=== PATIENT | female | born 1930 | race Caucasian/White ===

== ENCOUNTER 2018-10-25 14:55 | Emergency (ER) | payer OTHER ==
[2018-10-25] MEDS ORDERED: NA CHLORIDE 0.9% 1,000 ML ONE (15:52)
[2018-10-25 16:11] LABS: Absolute Lymphocytes (CBC) 1.9 K/uL (0.7-4.9); Basophils % 0.5 % (0-1.3); Hematocrit 35.4 % (36.0-45.0); Lymphocytes % 27.1 % (15.3-44.8); MPV 8.7 fL (7.6-11.3); RBC Red Blood Cell Count 3.83 M/uL (3.86-4.86)
[2018-10-25 16:19] LABS: Urine Blood NEGATIVE (NEG); Urine Glucose NEGATIVE (NEG); Urine Protein NEGATIVE (NEG); Urine pH 6.5 (5.0-7.0)
[2018-10-25 16:27] LABS: Urine Bacteria NONE SEEN /HPF (<20); Urine Culture Reflex Order NOT NEEDED; Urine RBC <5 /HPF (NONE SEEN)
[2018-10-25 16:27] LABS: Albumin 3.5 g/dL (3.4-5.0); Bilirubin Direct 0.1 mg/dL (0-0.2); Bilirubin Total 0.4 mg/dL (0.2-1.0); Magnesium 2.1 mg/dL (1.8-2.4); Potassium 3.8 mmol/L (3.5-5.1); Protein, Total 6.1 g/dL (6.4-8.2)
--- NOTE | 2018-10-25 17:27 | RAD REPORT ---
EXAM DESCRIPTION: CT - Abdomen Pelvis Wo Contrast - 10/25/2018 4:59 pm CLINICAL HISTORY: Abdominal pain .diarrhea COMPARISON: 2017 TECHNIQUE: Computed axial tomography of the abdomen and pelvis was obtained. IV and oral contrast we re not requested. All CT scans are performed using dose optimization technique as appropriate and may include automated exposure control or mA/KV adjustment according to patient size. FINDINGS: The evaluation of solid organs, vessels and bowel is limited secondary to the lack of con trast administration. The liver, spleen, pancreas, adrenals and kidneys appear grossly normal. Hysterectomy. There is no evidence of diverticulitis. Sclerosis involving the vertebral endplates of L1 and L2 vertebral bodies probably degenerative in na ture. Mild old compression fracture involves T10 vertebral body Atherosclerosis. Cholecystectomy IMPRESSION: No acute abnormality is displayed.
--- NOTE | 2018-10-25 18:55 | EDPHYS ---
Physician Documentation [facility] Name: Silvestre Damico Age: 88 yrs Sex: Female : 1930 Arrival Date: 10/25/2018 Time: 14:57 Bed 25 Private MD: Kam Rojo R ED Physician Akil Hankins HPI: 10/25 15:35 This 88 yrs old Female presents to ER via Ambulatory with complaints of cp Vomiting/Diarrhea. 15:35 The patient presents to the emergency department with diarrhea, that is intermittent. cp Onset: The symptoms/episode began/occurred diarrhea started last week and improved, then returned yesterday. 15:35 Associated signs and symptoms: Pertinent negatives: abdominal pain, constipation, cp fever, GI bleeding, chest pain. 15:35 Possible causes: taking OTC laxative for constipation. 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 - Social history:: Smoking status: Patient uses tobacco products, smokes one pack cigarettes per day. - Ebola Screening: : Patient negative for fever greater than or equal to 101.5 degrees Fahrenheit, and additional compatible Ebola Virus Disease symptoms Patient denies exposure to infectious person Patient denies travel to an Ebola-affected area in the 21 days before illness onset No symptoms or risks identified at this time. ROS: 15:45 Constitutional: Negative for body aches, chills, fever, poor PO intake. cp 15:45 Eyes: Negative for injury, pain, redness, and discharge. cp 15:45 ENT: Negative for drainage from ear(s), ear pain, sore throat, difficulty swallowing, difficulty handling secretions. 15:45 Cardiovascular: Negative for chest pain. 15:45 Respiratory: Negative for cough, shortness of breath, wheezing. 15:45 Abdomen/GI: Positive for diarrhea, Negative for abdominal pain, vomiting, constipation, black/tarry stool, rectal bleeding. 15:45 : Negative for urinary symptoms. 15:45 Skin: Negative for rash. 15:45 Neuro: Positive for general weakness, Negative for altered mental status, dizziness, headache. 15:45 All other systems are negative. Exam: 15:50 Constitutional: The patient appears in no acute distress, alert, awake, cp non-diaphoretic, non-toxic, well developed, well nourished. 15:50 Head/Face: Normocephalic, atraumatic. cp 15:50 Eyes: Periorbital structures: appear normal, Conjunctiva: normal, no exudate, no injection, Sclera: no appreciated abnormality, Lids and lashes: appear normal, bilaterally. 15:50 ENT: External ear(s): are unremarkable, Nose: is normal, Mouth: Lips: moist, Oral mucosa: moist, Posterior pharynx: is normal, airway is patent, no erythema, no exudate. 15:50 Chest/axilla: Inspection: normal, Palpation: is normal, no crepitus, no tenderness. 15:50 Cardiovascular: Rate: normal, Rhythm: regular, Edema: is not appreciated, JVD: is not appreciated. 15:50 Respiratory: the patient does not display signs of respiratory distress, Respirations: normal, no use of accessory muscles, no retractions, no splinting, no tachypnea, labored breathing, is not present, Breath sounds: are clear throughout, no decreased breath sounds, no stridor, no wheezing. 15:50 Abdomen/GI: Inspection: abdomen appears normal, Bowel sounds: active, all quadrants, Palpation: abdomen is soft and non-tender, in all quadrants, rebound tenderness, is not appreciated, voluntary guarding, is not appreciated, involuntary guarding, is not appreciated. 15:50 Back: pain, is absent, ROM is normal. 15:50 Skin: no rash present. 15:50 Neuro: Orientation: to person, place \\T\\ time. Mentation: is normal, Cerebellar function: is grossly normal, Motor: moves all fours, strength is normal, Sensation: no obvious gross deficits. 18:39 ECG was reviewed by the Attending Physician. cp Vital Signs: 15:01 BP 164 / 103; Pulse 68; Resp 18; Temp 99.9(O); Pulse Ox 99% on R/A; Weight 63.5 kg; hj Height 5 ft. 2 in. (157.48 cm); Pain 0/10; 16:01 BP 176 / 58; Pulse 61; Resp 15 S; Pulse Ox 100% on R/A; ca1 17:06 BP 157 / 73; Pulse 58; Resp 16 S; Pulse Ox 100% on R/A; ca1 17:46 BP 160 / 62 Supine; Pulse 58; Resp 17 S; Pulse Ox 100% on R/A; ca1 17:48 BP 149 / 79 Sitting; Pulse 59; Resp 21 S; Pulse Ox 100% ; ca1 18:25 BP 166 / 64; Pulse 64; Resp 17 S; Pulse Ox 100% on R/A; ca1 19:05 BP 148 / 63; Pulse 62; Resp 17 S; Temp 98.2(O); Pulse Ox 99% on R/A; ca1 15:01 Body Mass Index 25.60 (63.50 kg, 157.48 cm) hj MDM: 15:23 Patient medically screened. cp 16:00 Differential diagnosis: diverticulitis, viral gastroenteritis, gastroenteritis, cp dehydration, electrolyte abnormality. 18:54 Data reviewed: vital signs, nurses notes, lab test result(s), EKG, radiologic studies, cp CT scan. 18:54 Counseling: I had a detailed discussion with the patient and/or guardian regarding: the cp historical points, exam findings, and any diagnostic results supporting the discharge/admit diagnosis, lab results, radiology results, to return to the emergency department if symptoms worsen or persist or if there are any questions or concerns that arise at home. Response to treatment: the patient's symptoms have markedly improved after treatment, patient is well hydrated. VSS. Labs and CT abdomen/pelvis negative for acute findings. Will discharge to home for continued monitoring. 10/25 15:33 Order name: Basic Metabolic Panel; Complete Time: 16:37 cp 10/25 15:33 Order name: CBC with Diff; Complete Time: 16:21 cp 10/25 15:33 Order name: Creatinine for Radiology; Complete Time: 16:37 cp 10/25 15:33 Order name: Hepatic Function; Complete Time: 16:37 cp 10/25 15:33 Order name: Lipase; Complete Time: 16:37 cp 10/25 15:33 Order name: Magnesium; Complete Time: 16:37 cp 10/25 15:33 Order name: IV Saline Lock; Complete Time: 16:18 cp 10/25 15:33 Order name: Urine Microscopic Only; Complete Time: 16:37 cp 03 16:18 Order name: Urine Dipstick--Ancillary (enter results); Complete Time: 16:21 eb 10/25 16:39 Order name: CT Abd/Pelvis - Without Contrast; Complete Time: 17:38 cp 10/25 17:56 Order name: EKG; Complete Time: 17:57 cp 10/25 15:33 Order name: Labs collected and sent; Complete Time: 16:18 cp 10/25 15:33 Order name: Urine Dipstick-Ancillary (obtain specimen); Complete Time: 16:17 cp 10/25 17:39 Order name: Orthostatics; Complete Time: 17:52 cp 10/25 17:39 Order name: PO challenge; Complete Time: 17:52 cp 03 17:56 Order name: EKG - Nurse/Tech; Complete Time: 18:39 cp EC:39 Rate is 61 beats/min. Rhythm is regular. ME interval is normal. QRS interval is cp prolonged at 108 msec. QT interval is normal. Interpreted by me. Reviewed by me. Administered Medications: 16:05 Drug: NS 0.9% 500 ml Route: IV; Rate: bolus; Site: right antecubital; ca1 16:35 Follow up: IV Status: Completed infusion ca1 16:40 Drug: NS 0.9% 1000 ml Route: IV; Rate: 75 ml/hr; Site: right antecubital; ca1 19:07 Follow up: IV Status: Completed infusion ca1 17:55 Drug: NS 0.9% 500 ml Route: IV; Rate: bolus; Site: right antecubital; ca1 18:40 Follow up: IV Status: Completed infusion ca1 Disposition: 10/26 07:06 Co-signature as Attending Physician, Akil Hankins MD. rn Disposition: 10/25/18 18:54 Discharged to Home. Impression: Diarrhea, unspecified, Nausea. - Condition is Stable. - Discharge Instructions: Diarrhea, Adult, Nausea, Adult. - Prescriptions for Zofran 4 mg Oral Tablet - take 1 tablet by ORAL route every 12 hours As needed; 20 tablet. - Medication Reconciliation Form, Thank You Letter, Antibiotic Education, Prescription Opioid Use form. - Follow up: Private Physician; When: 1 - 2 days; Reason: Recheck today's complaints. - Problem is new. - Symptoms have improved. Signatures: Dispatcher [employer] EDMS Akil Hankins MD MD rn Pena, Laura, RN RN lp1 Brennen York RN RN Anmol Malin PA PA cp Renuka Leija RN RN ca1 Corrections: (The following items were deleted from the chart) 10/25 19:27 18:54 10/25/2018 18:54 Discharged to Home. Impression: Diarrhea, unspecified; Nausea. lp1 Condition is Stable. Forms are Medication Reconciliation Form, Thank You Letter, Antibiotic Education, Prescription Opioid Use. Follow up: Private Physician; When: 1 - 2 days; Reason: Recheck today's complaints. Problem is new. Symptoms have improved. cp
--- NOTE | 2018-10-25 18:55 | ER ---
Nurse's Notes [facility] Name: Silvestre Damico Age: 88 yrs Sex: Female : 1930 Arrival Date: 10/25/2018 Time: 14:57 Bed 25 Private MD: Kam Rojo R Diagnosis: Diarrhea, unspecified;Nausea Presentation: 10/25 14:59 Presenting complaint: Patient states: i had diarrhea since last week, it went away for hj a while and now its back and now im very weak, denies abd pain, reports shaking; reports N/V;. Transition of care: patient was not received from another setting of care. Onset of symptoms was October 25, 2018. Risk Assessment: Do you want to hurt yourself or someone else? Patient reports no desire to harm self or others. Initial Sepsis Screen: Does the patient meet any 2 criteria? No. Patient's initial sepsis screen is negative. Does the patient have a suspected source of infection? No. Patient's initial sepsis screen is negative. Care prior to arrival: None. 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 - Social history:: Smoking status: Patient uses tobacco products, smokes one pack cigarettes per day. - Ebola Screening: : Patient negative for fever greater than or equal to 101.5 degrees Fahrenheit, and additional compatible Ebola Virus Disease symptoms Patient denies exposure to infectious person Patient denies travel to an Ebola-affected area in the 21 days before illness onset No symptoms or risks identified at this time. Screenin:15 Abuse screen: Denies threats or abuse. Denies injuries from another. Nutritional ca1 screening: No deficits noted. Tuberculosis screening: No symptoms or risk factors identified. Fall Risk IV access (20 points). Gait- Weak (10 pts.). Total Woo Fall Scale indicates Low Risk Score (25-44 pts). Fall prevention measures have been instituted. Side Rails Up X 2 Frequent Obs/Assesments occuring As available Patient and Family Educated on Fall Prevention Program and strategies. Assessment: 15:15 General: Appears in no apparent distress. comfortable, Behavior is calm, cooperative, ca1 appropriate for age. General: Reports fever for 0-12 hours. Pain: Denies pain. Neuro: Level of Consciousness is awake, alert, obeys commands, Oriented to person, place, time, situation. Cardiovascular: Heart tones S1 S2 present Capillary refill < 3 seconds Patient's skin is warm and dry. Respiratory: Airway is patent Respiratory effort is even, unlabored, Respiratory pattern is regular, symmetrical, Breath sounds are clear bilaterally. GI: Abdomen is flat, non-distended, Bowel sounds present X 4 quads. Abd is soft and non tender X 4 quads. Reports diarrhea, since since about a week ago but worse in the past 2 days Patient currently denies nausea, vomiting. : No deficits noted. No signs and/or symptoms were reported regarding the genitourinary system. EENT: No deficits noted. No signs and/or symptoms were reported regarding the EENT system. Derm: Skin is intact, is thin, Skin is pink, warm \\T\\ dry. Musculoskeletal: Circulation, motion, and sensation intact. Capillary refill < 3 seconds, Range of motion: intact in all extremities. 17:08 Reassessment: Patient appears in no apparent distress at this time. Patient and/or ca1 family updated on plan of care and expected duration. Pain level reassessed. Patient is alert, oriented x 3, equal unlabored respirations, skin warm/dry/pink. Pt back from CT scan. Requested for food and drink. Notified provider. Provider says to wait for CT results. Notified pt. 17:50 Reassessment: Patient appears in no apparent distress at this time. Patient is alert, ca1 oriented x 3, equal unlabored respirations, skin warm/dry/pink. Orthostatics done. Pt reported dizziness upon sitting up. Did not proceed with standing. Notified provider. 18:00 Reassessment: Patient appears in no apparent distress at this time. Patient and/or ca1 family updated on plan of care and expected duration. Pain level reassessed. Patient is alert, oriented x 3, equal unlabored respirations, skin warm/dry/pink. [place] given and orange juice. Pt tolerating meal served. 19:05 Reassessment: Patient appears in no apparent distress at this time. Patient and/or ca1 family updated on plan of care and expected duration. Pain level reassessed. Patient is alert, oriented x 3, equal unlabored respirations, skin warm/dry/pink. Vital Signs: 15:01 BP 164 / 103; Pulse 68; Resp 18; Temp 99.9(O); Pulse Ox 99% on R/A; Weight 63.5 kg; hj Height 5 ft. 2 in. (157.48 cm); Pain 0/10; 16:01 BP 176 / 58; Pulse 61; Resp 15 S; Pulse Ox 100% on R/A; ca1 17:06 BP 157 / 73; Pulse 58; Resp 16 S; Pulse Ox 100% on R/A; ca1 17:46 BP 160 / 62 Supine; Pulse 58; Resp 17 S; Pulse Ox 100% on R/A; ca1 17:48 BP 149 / 79 Sitting; Pulse 59; Resp 21 S; Pulse Ox 100% ; ca1 18:25 BP 166 / 64; Pulse 64; Resp 17 S; Pulse Ox 100% on R/A; ca1 19:05 BP 148 / 63; Pulse 62; Resp 17 S; Temp 98.2(O); Pulse Ox 99% on R/A; ca1 15:01 Body Mass Index 25.60 (63.50 kg, 157.48 cm) ED Course: 14:57 Patient arrived in ED. mr 14:58 Kam Rojo MD is Private Physician. mr 15:01 Triage completed. hj 15:01 Arm band placed on right wrist. hj 15:05 Renuka Leija, COREY is Primary Nurse. ca1 15:10 Anmol Malin PA is PHCP. cp 15:10 Akil Hankins MD is Attending Physician. cp 15:15 Patient has correct armband on for positive identification. Bed in low position. Call ca1 light in reach. Side rails up X2. radio script writer on. Pulse ox on. NIBP on. 16:05 No provider procedures requiring assistance completed. Inserted saline lock: 22 gauge ca1 in right antecubital area, using aseptic technique. Blood collected. 16:59 CT Abd/Pelvis - Without Contrast In Process Unspecified. EDMS 16:59 CT completed. Patient tolerated procedure well. Patient moved back from CT. mw3 19:26 IV discontinued, No redness/swelling at site. Pressure dressing applied. lp1 Administered Medications: 16:05 Drug: NS 0.9% 500 ml Route: IV; Rate: bolus; Site: right antecubital; ca1 16:35 Follow up: IV Status: Completed infusion ca1 16:40 Drug: NS 0.9% 1000 ml Route: IV; Rate: 75 ml/hr; Site: right antecubital; ca1 19:07 Follow up: IV Status: Completed infusion ca1 17:55 Drug: NS 0.9% 500 ml Route: IV; Rate: bolus; Site: right antecubital; ca1 18:40 Follow up: IV Status: Completed infusion ca1 Outcome: 18:54 Discharge ordered by MD. cp 19:26 Discharged to home via wheelchair, with friend. lp1 19:26 Condition: good 19:26 Discharge instructions given to patient, family, Instructed on discharge instructions, follow up and referral plans. medication usage, Demonstrated understanding of instructions, follow-up care, medications, Prescriptions given X 1. 19:27 Patient left the ED. lp1 Signatures: Dispatcher [employer] EDLA Vu Dasia Magdalena Little, RN RN lp1 Brennen York RN RN hj Page, Corey, PA PA cp Willis, Michelle mw3 Renuka Leija RN RN ca1 Corrections: (The following items were deleted from the chart) 15:04 15:01 Pulse 68bpm; Resp 18bpm; Pulse Ox 99% RA; Temp 99.9F Oral; 63.5 kg; Height 5 ft. hj 2 in.; BMI: 25.6; Pain 0/10; hj
[2018-10-25 19:42] VITALS: BP 148/63; TEMP 98.2; O2SAT 99
--- NOTE | 2018-10-27 07:47 | EKG ---
Test Date: 2018-10-25 Test Time: 18:35:20 Therapy Manager: MOOKIE MEASUREMENT RESULTS: Intervals: Rate: 61 TX: 172 QRSD: 108 QT: 464 QTc: 467 [place]: P: 62 TX: 172 QRS: 61 T: 53 INTERPRETIVE STATEMENTS: Normal sinus rhythm Incomplete right bundle branch block Nonspecific T wave abnormality Abnormal ECG Compared to ECG 02/05/2017 12:34:28 Incomplete right bundle-branch block now present T-wave abnormality now present Sinus bradycardia no longer present Right bundle-branch block no longer present Electronically Signed On 10-27-18 07:45:15 CDT by Chucky Miranda
== END 2018-10-25 19:27 | disposition home or self-care (01) ==
LOC: ER 14:55
DX: R19.7 Diarrhea, unspecified (principal); I10 Essential (primary) hypertension; E78.00 Pure hypercholesterolemia, unspecified; F17.210 Nicotine dependence, cigarettes, uncomplicated; Z88.5 Allergy status to narcotic agent; Z88.7 Allergy status to serum and vaccine; Z95.1 Presence of aortocoronary bypass graft; Z91.048 Other nonmedicinal substance allergy status; Z95.818 Presence of other cardiac implants and grafts
CPT/HCPCS: 96361; 93005; 85025; 80048; 36415; 83735; 80076; 83690; 74176; 96360; 99285; J7030; 81003; 81015

== ENCOUNTER 2018-11-21 08:57 | Day surgery (SDC) | payer OTHER ==
[2018-11-21] MEDS ORDERED: Ringers Lactate 1,000 ML IV ONE (09:39)
[2018-11-21] MEDS: LIDOCAINE 1% W/EPI 1:100,000 MDV 20 ML VIAL ONE ×3 (10:29→11:19)
[2018-11-21] MEDS ORDERED: PROPOFOL 200 MG/20 ML VIAL IV ONE (10:29)
[2018-11-21] MEDS ORDERED: FENTANYL CITR 100 MCG/2 ML ONE (10:30)
[2018-11-21] MEDS ORDERED: ROCURONIUM 50 MG/5 ML VIAL IV ONE (10:31)
[2018-11-21] MEDS ORDERED: LIDOCAINE 2% MPF 5 ML VIAL ONE (10:31)
[2018-11-21] MEDS ORDERED: ONDANSETRON 4 MG/2 ML VIAL ONE ×3 (10:32→13:22)
[2018-11-21] MEDS ORDERED: EPHEDRINE SULF 50 MG/ML VIAL ONE (11:02)
[2018-11-21] MEDS ORDERED: GLYCOPYRROLATE 0.2 MG/ML SYR ONE (11:02)
[2018-11-21] MEDS ORDERED: Phenylephrine HCl 10 MG/ML 1 ML VIAL ONE (11:13)
--- NOTE | 2018-11-21 12:33 | P.BOP ---
Preoperative diagnosis: BCC upper lip Postoperative diagnosis: same Primary procedure: wedge resection with frozen section Nurse Aide: NONE,NONE Estimated blood loss: <5ml Specimen: upper lip, new 3 oclock margin Findings: negative on frozen section Anesthesia: General Implants: none Fluids & blood products: crystalloid 600ml Transferred to: Recovery Room Condition: Good
[2018-11-21] MEDS: MORPHINE 4 MG/ML SYR ONE ×4 (12:57→13:17)
[2018-11-21 13:15] VITALS: TEMP 97.6
[2018-11-21] MEDS ORDERED: TRAMADOL HCL 50 MG TAB ONE (14:48)
[2018-11-21 15:46] VITALS: BP 162/58; O2SAT 100
--- NOTE | 2018-11-22 21:27 | OP ---
Date of Procedure: 11/21/2018 Surgeon: Daiana Callahan MD Gm Mobile: None. 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 Procedure: Resection of upper lip with primary closure including frozen section. Blood Loss: Less than 5 mL. Specimen: 1.Right upper lip suture banuelos, 12 o'clock. 2.New 3 o'clock margin, true margin inked. Findings: Confirmed basal cell carcinoma with negative margins on frozen section. Anesthesia: General. Indication For Procedure: Ms. Damico presented with biopsy confirmed basal cell carcinoma of the u pper lip located at the vermilion border. The risks, benefits, and alternatives to the procedure wer e discussed with the patient and her friend. The patient agreed to proceed. Description Of Procedure: The patient was brought to the operating room. She was placed under gener al anesthesia via oral endotracheal tube. The patient's face was prepped and draped with chlorhexidi ne due to iodine allergy and draped in a sterile fashion. A sterile gauze was placed in the oral ves tibule to cover the patient's gingiva during the lip excision. The upper lip was examined. Just to the right of midline, there is an ulceration with a small scab and surrounding area of induration. A gross margin of 2-3 mm was designed around the lesion and Bovie electrocautery was used to incise th rough the skin. A full-thickness skin was excised and elevated. The deep aspect of the specimen inc luded visibly some small submucosal glands as well as some muscle tissue. The specimen was marked wi th a suture at 12 o'clock indicating the superior most aspect of the lesion and sent to Pathology for frozen section analysis. The deep margin was negative, but there was focal disease near the 3 o'gia ck margin. A new margin extending from approximately 1:30 to 5 o'clock was excised. The true margin marked with ink and this was sent to Pathology for frozen section analysis. While awaiting the resu lts, the medial, lateral, and superior aspects were undermined with the Bovie electrocautery. The ne w 3 o'clock margin was noted to be negative and plan for closure was made. The total size of the def ect was 2.5 cm. This was encompassing approximately 1/3rd of the total lip length and decision was m south for completion of a wedge resection with primary closure. Approximately 1 cm area of the mucosal aspect of the lip was excised. The mucosal surface was closed in a running fashion using a chromic suture. The muscular layers were approximated using a 4-0 Vicryl suture. The subcutaneous layer of skin was also closed with an additional layer of buried 4-0 Vicryl sutures. A triangular portion of skin at the 12 o'clock margin was excised in order to improve closure. The tip of that triangular re section extended up to the edge of the right nostril. This excess skin was disposed of and the skin was then closed in a running fashion using 5-0 chromic suture. The external surface was coated with triple antibiotic ointment and the patient was returned to care of anesthesia for awakening and extub ation in the operating room, which proceeded without difficulty. Complications: None. Disposition: Patient will be discharged home later today in the care of her family with appropriate pain medications, soft diet, and avoidance of the use of her dentures during the initial healing. Pa tient is recommended to abstain from smoking, though compliance with this is questionable. ROBERTA Voice ID: [id number] Report ID: [id number]
== END 2018-11-21 15:30 | disposition home or self-care (01) ==
LOC: OR 08:57
PROVIDERS: ATTEND Otolaryngology
PROC: 0HB1XZZ Excision of Face Skin, External Approach (ICD-10-PCS; principal; 2018-11-21 11:15)
DX: C44.01 Basal cell carcinoma of skin of lip (principal); K14.3 Hypertrophy of tongue papillae; I10 Essential (primary) hypertension; J44.9 Chronic obstructive pulmonary disease, unspecified; F17.200 Nicotine dependence, unspecified, uncomplicated; Z95.1 Presence of aortocoronary bypass graft; Z88.6 Allergy status to analgesic agent; Z88.8 Allergy status to other drugs, medicaments and biological substances
CPT/HCPCS: 88331; 88332; 88305; 40510; J2704; J3010; J2405 ×3; J2370

== ENCOUNTER 2018-11-23 22:46 | Observation (INO) | payer OTHER ==
[2018-11-24] MEDS ORDERED: ONDANSETRON 4 MG/2 ML VIAL IV PRN (00:17)
[2018-11-24] MEDS ORDERED: MORPHINE 2 MG/ML SYR IV PRN (00:17)
[2018-11-24 00:29] LABS: Absolute Lymphocytes (CBC) 1.3 K/uL (0.7-4.9); Basophils % 0.5 % (0-1.3); Hematocrit 35.3 % (36.0-45.0); Lymphocytes % 15.2 % (15.3-44.8); MPV 9.7 fL (7.6-11.3); RBC Red Blood Cell Count 3.81 M/uL (3.86-4.86)
[2018-11-24 00:42] LABS: Albumin 3.5 g/dL (3.4-5.0); Bilirubin Direct 0.1 mg/dL (0-0.2); Bilirubin Total 0.4 mg/dL (0.2-1.0); Potassium 3.8 mmol/L (3.5-5.1); Protein, Total 6.6 g/dL (6.4-8.2); Troponin (Emerg Dept Use Only) 0.02 ng/mL (0.0-0.045)
[2018-11-24 00:43] LABS: Protime INR 0.89
[2018-11-24 00:45] LABS: Barbiturates NEGATIVE (NEGATIVE); Benzodiazepines NEGATIVE (NEGATIVE); Cocaine NEGATIVE (NEGATIVE); METHAMPHETAM NEGATIVE (NEGATIVE); Methadone NEGATIVE (NEGATIVE); Opiates NEGATIVE (NEGATIVE); Phencyclidine NEGATIVE (NEGATIVE); THC Cannibis NEGATIVE (NEGATIVE)
[2018-11-24] MEDS ORDERED: NA CHLORIDE 0.9% 1,000 ML IV SCH (01:00)
[2018-11-24 01:18] LABS: Urine Blood TRACE (NEG); Urine Glucose NEGATIVE (NEG); Urine Protein NEGATIVE (NEG)
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
[2018-11-24 03:43] VITALS: BMI 25.3
[2018-11-24] MEDS ORDERED: TRAMADOL HCL 50 MG TAB PO PRN (04:57)
[2018-11-24] MEDS ORDERED: POLYETHYL GLY 3350 17 GM/DOSE PO PRN (04:57)
[2018-11-24] MEDS: LOSARTAN POTASSIUM 50 MG TABLET PO SCH (05:55)
[2018-11-24] MEDS ORDERED: PNEUMOCOCCAL VACCINE 0.5 ML IMVAC ONE (08:00)
[2018-11-24] MEDS: METOPROLOL XL 25 MG TAB PO SCH (08:05)
[2018-11-24] MEDS: MULTIVITAMINS,THERAPEUT 1 TAB PO SCH (08:06)
[2018-11-24] MEDS: GABAPENTIN 300 MG CAP PO SCH ×2 (08:06→20:56)
--- NOTE | 2018-11-24 08:22 | RAD REPORT ---
EXAM DESCRIPTION: RAD - Chest Single View - 11/23/2018 11:46 pm CLINICAL HISTORY: Transient alteration of awareness, shortness of breath COMPARISON: January 2017 TECHNIQUE: AP portable chest image was obtained 2342 hours . FINDINGS: No peripheral mass consolidation. Interstitial markings are not substantially different fr om comparison. Lung volumes are reduced compared to the prior study. Sternotomy wires are in place. H eart and vasculature are normal. No measurable pleural effusion and no pneumothorax. No acute bony ab normality seen. No acute aortic findings suspected. IMPRESSION: No focal mass or consolidation. Lung markings are not substantially different when adjusting for the more shallow inspiration. Patient can be monitored for any early failure or volume overload.
[2018-11-24] MEDS ORDERED: HOME MED 1 EA UNK (Levocetirizine Dihydrochloride [Xyzal] 5 MG) PO SCH (09:00)
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
--- NOTE | 2018-11-24 10:17 | RAD REPORT ---
EXAM DESCRIPTION: CT - Head Brain Wo Cont - 11/24/2018 12:54 am CLINICAL HISTORY: CONFUSED COMPARISON: CT head November 10, 2018 TECHNIQUE: Multiple helical axial tomographic images were obtained of the head without intravenous c ontrast. This exam was performed according to our departmental dose-optimization program, which inclu elvira automated exposure control, adjustment of the mA and/or kV according to patient size and/or use o f iterative reconstruction technique. FINDINGS: Prominence of the extra-axial space adjacent to both frontal lobes again noted likely rela susan to frontal volume loss. A 1.3 cm dural based rounded calcific density in the left posterior fossa along the left tentorium again noted likely representing a meningioma. There is no acute intracrania l hemorrhage. No mass. No midline shift. No ventriculomegaly. Barraza-white matter differentiation is ma intained. Paranasal sinuses are clear. Mastoid air cells and middle ear spaces are clear. Changes of lens repla cement noted. Osseous structures are unremarkable. Surrounding soft tissues are unremarkable. IMPRESSION: 1. No acute intracranial process. 2. 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 Electronically signed by: Remy Bardales MD 11/24/2018 12:30 AM CDT Due to temporary technical issues with the PACS/Fluency reporting system, reports are being signed by the in house radiologist as a courtesy to ensure prompt reporting. The interpreting radiologist is f ully responsible for the content of the report.
--- NOTE | 2018-11-24 10:37 | RAD REPORT ---
EXAM DESCRIPTION: US - CP - 11/24/2018 10:14 am CLINICAL HISTORY: Transient alteration of awareness COMPARISON: May 2016 TECHNIQUE: Real-time sonographic evaluation of both carotid systems was performed. Barraza scale and Do ppler interrogation were performed with waveform tracing bilaterally. FINDINGS: Normal high resistance waveforms are noted in both external carotid arteries. The common c arotid arteries and internal carotid arteries show normal low resistance waveforms. Mild calcified plaquing changes are present on the right. A more pronounced calcified plaquing change present at the left bulb and proximal ICA. No hemodynamically significant stenosis seen on the right . Greater than 50% stenosis present on the left. Severity is not substantially changed from 2017. Antegrade flow seen in both vertebral arteries. Velocity values and ratios were recorded and are retained in the patient's imaging records. IMPRESSION: Significant atherosclerotic plaquing changes present on the left causing a greater than 50% stenosis. Findings are felt to be similar to 2017. Right-sided calcified plaquing changes do not result in significant stenosis.
--- NOTE | 2018-11-24 10:50 | P.PN ---
Subjective Date of Service: 11/24/18 Chief Complaint: Altered mental status; hallucinations Subjective: Improving (She is doing well she is now alert responsive oriented continues to smoke heavily) Review of Systems General: Weakness Respiratory: Cough, Dry Physical Examination - Vital Signs Temperature: 98.4 F Blood Pressure: 141/70 Pulse: 65 Respirations: 15 Pulse Ox (%): 96 - Physical Exam General: Alert, In no apparent distress, Oriented x3 Neck: Supple Respiratory: Expiratory wheezes Cardiovascular: No edema, Regular rate/rhythm - Studies Laboratory Data (last 24 hrs) 11/24/18 00:01: PT 10.6, INR 0.89, APTT 25.6 11/24/18 00:01: WBC 8.4, Hgb 11.9 L, Hct 35.3 L, Plt Count 179 11/24/18 00:01: Sodium 139, Potassium 3.8, BUN 20 H, Creatinine 1.19, Glucose 131 H, Magnesium 2.0, Total Bilirubin 0.4, AST 17, ALT 15, Alkaline Phosphatase 65 11/23/18 23:47: APTT Cancelled Assessment & Plan - Problems (Diagnosis) (1) Altered mental status Current Visit: Yes Status: Acute Plan: Patient is 88 years of age heavy smoker admitted with altered mental status workup so far is nondiagnostic she has significant carotid artery stenosis no change no evidence of sepsis patient smokes heavily his by herself final signs stable oxygenation satisfactory patient was in AFib currently in normal sinus rhythm history of coronary artery disease BNP is significantly elevated continue to monitor part function tests B12 levels bronchodilator and steroids Qualifiers: Altered mental status type: disorientation Qualified Code(s): R41.0 - Disorientation, unspecified
[2018-11-24 11:26] LABS: Absolute Lymphocytes (CBC) 1.7 K/uL (0.7-4.9); Basophils % 0.5 % (0-1.3); Hematocrit 35.1 % (36.0-45.0); Lymphocytes % 24.9 % (15.3-44.8); MPV 9.4 fL (7.6-11.3); RBC Red Blood Cell Count 3.81 M/uL (3.86-4.86)
[2018-11-24] MEDS: predniSONE 20 MG TAB PO SCH ×2 (11:29→20:55)
[2018-11-24] MEDS: ARFORMOTEROL TARTRATE 15 MCG/2 ML VIAL.NEB NEB SCH ×2 (12:01→20:00)
[2018-11-24 12:09] LABS: Thyroid Stimulating Hormone 0.69 uIU/mL (0.360-3.740)
[2018-11-24] MEDS: ACETAMINOPHEN 500 MG TAB PO PRN (16:09)
[2018-11-24] MEDS: ATORVASTATIN 10 MG TAB PO SCH (20:55)
[2018-11-25] MEDS ORDERED: ALPRAZOLAM 0.25 MG TABLET PO ONE (04:16)
[2018-11-25] MEDS ORDERED: LORazepam 2 MG/ML VIAL IV ONE (04:40)
[2018-11-25] MEDS: NICOTINE 21 MG/PAT TD SCH ×2 (05:00→09:00)
[2018-11-25] MEDS: ARFORMOTEROL TARTRATE 15 MCG/2 ML VIAL.NEB NEB SCH ×2 (07:55→19:32)
[2018-11-25] MEDS: LOSARTAN POTASSIUM 50 MG TABLET PO SCH (08:54)
[2018-11-25] MEDS: METOPROLOL XL 25 MG TAB PO SCH (08:54)
[2018-11-25] MEDS: ACETAMINOPHEN 500 MG TAB PO PRN (08:54)
[2018-11-25] MEDS: GABAPENTIN 300 MG CAP PO SCH ×2 (08:55→21:22)
[2018-11-25] MEDS: MULTIVITAMINS,THERAPEUT 1 TAB PO SCH (08:56)
[2018-11-25] MEDS: predniSONE 20 MG TAB PO SCH ×2 (08:56→21:22)
[2018-11-25] MEDS: CETIRIZINE HCL 5 MG TABLET PO SCH (08:56)
[2018-11-25] MEDS ORDERED: NICOTINE 21 MG/PAT TD SCH (09:00)
--- NOTE | 2018-11-25 14:48 | PN ---
Date of Progress Note: 11/25/2018 Subjective: Code status is full. The patient is seen and examined. Chart reviewed and case discussed with RN. The patient seems to be much more confused than yesterday. According to staff, she is having hallucinations and is confused. There is no family at the bedside. Medications: List reviewed. Physical Examination: Vital Signs: Temperature 98.1, heart rate 73, blood pressure 193/93, respirations 19, O2 94% on room air. General: Awake, alert, and oriented x1, not in any acute distress. Elderly female, appears older than stated age. CV: S1, S2. Regular rate and rhythm. Peripheral pulses present. Respiratory: Moving air well bilaterally. No wheezing or stridor. Gastrointestinal: Abdomen is soft, nontender, nondistended. Positive bowel sounds. No guarding or rigidity. Extremities: No clubbing, cyanosis, or edema. Neurologic: Nonfocal. Speech is normal. Skin: No rashes. Normal skin turgor. Laboratory Data: Pending. Assessment: An 88-year-old female with. 1. Acute metabolic encephalopathy, unclear etiology, may be related to worsening dementia versus urinary tract infection or other source of infection. 2. Hallucinations. We will continue to use Haldol as needed. 3. Atrial fibrillation with RVR. Continue with metoprolol for rate control. 4. Mixed hyperlipidemia. We will continue statin. 5. History of basal cell carcinoma. 6. Coronary artery disease, bridgeport artery and bridgeport heart status post stent without angina. 7. Deep vein thrombosis prophylaxis addressed. Plan: Patient is not safe to return home due to her mental condition, will need placement. We will consult PT, OT, and social work for placement. We will reach out to family. ADDENDUM: transfer service to Dr. Rojo. Spoke with Dr. Rojo personally who accepted the patient /LUMA Voice ID: [id number] Report ID: [id number] MTDShanon
--- NOTE | 2018-11-25 17:40 | EKG ---
Test Date: 2018-11-23 Test Time: 23:54:27 Sql Report Analyst: RR MEASUREMENT RESULTS: Intervals: Rate: 107 AL: QRSD: 122 QT: 358 QTc: 477 [place]: P: AL: QRS: 55 T: 51 INTERPRETIVE STATEMENTS: Atrial fibrillation with rapid ventricular response Right bundle branch block Abnormal ECG Compared to ECG 10/25/2018 18:35:20 Right bundle-branch block now present Sinus rhythm no longer present Incomplete right bundle-branch block no longer present T-wave abnormality no longer present Electronically Signed On 11-25-18 17:35:27 CDT by Dhiraj Ramos
--- NOTE | 2018-11-25 17:40 | EKG ---
Test Date: 2018-11-24 Test Time: 03:34:34 Coffee Sampler: RT MEASUREMENT RESULTS: Intervals: Rate: 62 FL: 160 QRSD: 114 QT: 414 QTc: 420 [place]: P: 62 FL: 160 QRS: 2 T: 42 INTERPRETIVE STATEMENTS: Normal sinus rhythm Incomplete right bundle branch block Borderline ECG Compared to ECG 11/23/2018 23:54:27 Incomplete right bundle-branch block now present Atrial fibrillation no longer present Right bundle-branch block no longer present Electronically Signed On 11-25-18 17:35:26 CDT by Dhiraj Ramos
[2018-11-25] MEDS ORDERED: LORazepam 2 MG/ML VIAL IM PRN (19:43)
[2018-11-25] MEDS: ATORVASTATIN 10 MG TAB PO SCH (21:22)
[2018-11-26] MEDS: ARFORMOTEROL TARTRATE 15 MCG/2 ML VIAL.NEB NEB SCH ×2 (06:30→20:00)
[2018-11-26] MEDS ORDERED: HYDRALAZINE HCL 20 MG/ML VIAL IV PRN (08:22)
[2018-11-26] MEDS: CETIRIZINE HCL 5 MG TABLET PO SCH (08:54)
[2018-11-26] MEDS: predniSONE 20 MG TAB PO SCH ×2 (08:55→20:18)
[2018-11-26] MEDS: GABAPENTIN 300 MG CAP PO SCH ×2 (08:55→20:18)
[2018-11-26] MEDS: METOPROLOL XL 25 MG TAB PO SCH (08:55)
[2018-11-26] MEDS: LOSARTAN POTASSIUM 50 MG TABLET PO SCH (08:55)
[2018-11-26] MEDS: NICOTINE 21 MG/PAT TD SCH (08:55)
[2018-11-26] MEDS: MULTIVITAMINS,THERAPEUT 1 TAB PO SCH (08:55)
[2018-11-26] MEDS: POLYETHYL GLY 3350 17 GM/DOSE PO PRN (09:02)
[2018-11-26] MEDS: ATORVASTATIN 10 MG TAB PO SCH (20:18)
--- NOTE | 2018-11-27 01:46 | PN ---
Patient mentation is better. She is still confused. I had discussion with the family, as well as re viewed the adoption social worker recommendations. One option was to send her home with home health. I have a feeling this will not be sufficient in view of her recurrent episodes of confusion. I feel that carole brito is a candidate for [facility] placement with the nursing help as well as supervision. I spoke to the family regarding this suggestion today in my office. JONY/LUMA Voice ID: [id number] Report ID: [id number]
[2018-11-27] MEDS: ARFORMOTEROL TARTRATE 15 MCG/2 ML VIAL.NEB NEB SCH ×2 (07:45→20:50)
[2018-11-27] MEDS: POLYETHYL GLY 3350 17 GM/DOSE PO PRN (08:44)
[2018-11-27] MEDS: NICOTINE 21 MG/PAT TD SCH (08:44)
[2018-11-27] MEDS: CETIRIZINE HCL 5 MG TABLET PO SCH (08:44)
[2018-11-27] MEDS: GABAPENTIN 300 MG CAP PO SCH ×2 (08:44→21:12)
[2018-11-27] MEDS: LOSARTAN POTASSIUM 50 MG TABLET PO SCH (08:44)
[2018-11-27] MEDS: MULTIVITAMINS,THERAPEUT 1 TAB PO SCH (08:44)
[2018-11-27] MEDS: METOPROLOL XL 25 MG TAB PO SCH (08:44)
[2018-11-27] MEDS: predniSONE 20 MG TAB PO SCH ×2 (08:44→21:12)
[2018-11-27] MEDS: ATORVASTATIN 10 MG TAB PO SCH (21:12)
[2018-11-27 23:06] VITALS: O2SAT 98
--- NOTE | 2018-11-28 01:48 | PN ---
Again, we had discussion with the family regarding her postdischarge care. The issue seems to be sin ce patient does not want to go to prison and since she is alert at this point. Power of attorn doris cannot override her wish. However, nurse told me that the patient is going to have [facility] evaluatio n after which her final discharge plan will be confirmed. JONY/LUMA Voice ID: [id number] Report ID: [id number]
[2018-11-28] MEDS: ARFORMOTEROL TARTRATE 15 MCG/2 ML VIAL.NEB NEB SCH (08:24)
[2018-11-28] MEDS: MULTIVITAMINS,THERAPEUT 1 TAB PO SCH (09:00)
[2018-11-28] MEDS: CETIRIZINE HCL 5 MG TABLET PO SCH (09:50)
[2018-11-28] MEDS: predniSONE 20 MG TAB PO SCH (09:50)
[2018-11-28] MEDS: NICOTINE 21 MG/PAT TD SCH (09:50)
[2018-11-28] MEDS: METOPROLOL XL 25 MG TAB PO SCH (09:51)
[2018-11-28] MEDS: LOSARTAN POTASSIUM 50 MG TABLET PO SCH (09:51)
[2018-11-28] MEDS: GABAPENTIN 300 MG CAP PO SCH (09:51)
[2018-11-28 09:52] VITALS: BP 162/74
[2018-11-28 11:19] VITALS: TEMP 99.2
== END 2018-11-28 11:18 | disposition home health service (06) ==
LOC: ER 22:46 → ERHOLD 11-24 00:58 → 2ND 11-24 01:46
PROVIDERS: ADMIT Internal Medicine; ATTEND Internal Medicine
DX: R44.3 Hallucinations, unspecified (principal); G93.41 Metabolic encephalopathy; I48.91 Unspecified atrial fibrillation; Z85.828 Personal history of other malignant neoplasm of skin; I10 Essential (primary) hypertension; E78.00 Pure hypercholesterolemia, unspecified; I48.2 Chronic atrial fibrillation; R41.0 Disorientation, unspecified; E78.2 Mixed hyperlipidemia; I25.10 Atherosclerotic heart disease of native coronary artery without angina pectoris; F17.210 Nicotine dependence, cigarettes, uncomplicated
CPT/HCPCS: 93005 ×2; 85025 ×2; 80048 ×2; 36415; 80320; 83735 ×2; 80329 ×2; 84100; 85610; 80076; 80307 ×8; 85730; 84443; 81003; 84484; 82607; 83690; 83880; 70450; 71045; 93880; 97112; 97116; 97161; 94640; 99285; J7605 ×8; G0378 ×7; J7030; J0360; J7512

== ENCOUNTER 2020-07-26 13:31 | Observation (INO) | payer OTHER ==
[2020-07-26 14:04] LABS: Absolute Lymphocytes (CBC) 1.6 K/uL (0.7-4.9); Basophils % 0.6 % (0-1.3); Hematocrit 38.8 % (36.0-45.0); Lymphocytes % 17.5 % (15.3-44.8); MPV 9.4 fL (7.6-11.3)
[2020-07-26 14:24] LABS: ALT/SGPT 12 U/L (12-78); AST/SGOT 16 U/L (15-37); Albumin 3.7 g/dL (3.4-5.0); Alkaline Phosphatase 69 U/L (45-117); BUN Blood Urea Nitrogen 12 mg/dL (7-18); Bicarbonate 26 mmol/L (21-32); Bilirubin Direct 0.1 mg/dL (0-0.2); Bilirubin Total 0.6 mg/dL (0.2-1.0); Glucose Level 131 mg/dL (74-106); NT PRO-BNP 1397 pg/mL (<450); Potassium 3.6 mmol/L (3.5-5.1); Protein, Total 6.8 g/dL (6.4-8.2); Sodium Level 142 mmol/L (136-145); Troponin (Emerg Dept Use Only) < 0.02 ng/mL (0.0-0.045)
[2020-07-26] MEDS ORDERED: NICOTINE 14 MG/PAT TD SCH (15:00)
--- NOTE | 2020-07-26 15:07 | RAD REPORT ---
EXAM DESCRIPTION: Bela Single View07/26/2020 2:19 pm CLINICAL HISTORY: Weakness/AFib COMPARISON: 2019 FINDINGS: The lungs appear clear of acute infiltrate. The heart is mildly enlarged. Postsurgical changes involve the chest. IMPRESSION: No acute abnormalities displayed
[2020-07-26 16:44] LABS: Urine Blood Negative (Negative); Urine Glucose Negative (Negative); Urine Protein Negative (Negative); Urine Specific Gravity 1.015 (1.005-1.030)
[2020-07-26 17:56] LABS: Urine Bacteria <20 /HPF (<20); Urine RBC <5 /HPF (NONE SEEN)
--- NOTE | 2020-07-26 19:03 | RAD REPORT ---
EXAM DESCRIPTION: CT - Head Brain Wo Cont - 07/26/2020 6:55 pm CLINICAL HISTORY: Syncope COMPARISON: 2019 TECHNIQUE: Computed axial tomography of the head was obtained. IV contrast was not requested. All CT scans are performed using dose optimization technique as appropriate and may include automated exposure control or mA/KV adjustment according to patient size. FINDINGS: An intracranial bleed is not seen . The ventricles are normal in caliber. No extra-axial fluid collection is noted. 13 millimeter calcific density abutting left tentorium unchanged likely a meningioma. No surrounding edema. . Vascular calcifications. Fluid within the sinuses/ mastoids is not seen. IMPRESSION: No acute intracranial abnormality is seen. If patient's symptoms persist MRI of the bra in would be recommended.
--- NOTE | 2020-07-26 19:35 | ER ---
Nurse's Notes [facility] Name: Silvestre Damico Age: 89 yrs Sex: Female : 1930 Arrival Date: 07/26/2020 Time: 13:34 Bed 24 Private MD: Diagnosis: Atrial fibrillation and flutter;Syncope and collapse Presentation: 07/26 13:34 Chief complaint: Patient's son or daughter states: Pt started feeling weak yesterday; vg1 today pt fell in the kitchen with LOC, pt woke up laying on back; pt stated 'cant remember if I hit head'; Pt is not on any blood thinners; EMS stated pt was in Afib with RVR, HR was 180. EMS administer 4 mg of Zofran and 10 mg of Cardizem. Coronavirus screen: Client denies travel out of the [place] in the last 14 days. Ebola Screen: Patient negative for fever greater than or equal to 101.5 degrees Fahrenheit, and additional compatible Ebola Virus Disease symptoms. Initial Sepsis Screen: Does the patient meet any 2 criteria? No. Patient's initial sepsis screen is negative. Does the patient have a suspected source of infection? No. Patient's initial sepsis screen is negative. Risk Assessment: Do you want to hurt yourself or someone else? Patient reports no desire to harm self or others. Onset of symptoms. 13:34 Method Of Arrival: EMS: [facility] vg1 13:34 Acuity: SUPRIYA 3 vg1 Historical: - Allergies: 13:43 Demerol; vg1 13:43 FLU VACCINE; vg1 13:43 Iodine; vg1 - Home Meds: 13:43 metoprolol succinate 25 mg Oral Tb24 1 tab once daily [Active]; Primidone Oral vg1 [Active]; gabapentin 300 mg Oral cap twice a day [Active]; Prilosec Oral [Active]; memantine oral oral [Active]; levocetirizine oral oral [Active]; Senokot Oral [Active]; aspirin 81 mg Oral chew 1 tab once daily [Active]; - PMHx: 13:43 High Cholesterol; Hypertension; Polio; vg1 - PSHx: 13:43 Cardiac bypass; vg1 - Immunization history:: Adult Immunizations up to date. - Social history:: Smoking status: Patient reports the use of cigarette tobacco products. Screenin:15 Abuse screen: Denies threats or abuse. Nutritional screening: No deficits noted. vg1 Tuberculosis screening: No symptoms or risk factors identified. Fall Risk Fall in past 12 months (25 points). No secondary diagnosis (0 pts). IV access (20 points). Ambulatory Aid- Crutches/Cane/Walker (15 pts). Gait- Weak (10 pts.). Mental Status- Oriented to own ability (0 pts). Total Woo Fall Scale indicates High Risk Score (45 or more points). Fall prevention measures have been instituted. Side Rails Up X 2 Placed Close to Nursing Station 1:1 Attendant Assigned Family Present and informed to notify staff if the need to leave the bedside. Assessment: 13:28 General: Appears in no apparent distress. uncomfortable, Behavior is cooperative, vg1 anxious. Pain: Denies pain. Neuro: Level of Consciousness is awake, alert, obeys commands, Oriented to person, place, time, situation, Reports blurred vision dizziness, weakness. Cardiovascular: Patient's skin is warm and dry. Respiratory: Airway is patent Respiratory effort is even, unlabored. GI: Reports diarrhea. : No signs and/or symptoms were reported regarding the genitourinary system. EENT: No signs and/or symptoms were reported regarding the EENT system. Derm: Skin is intact, Skin is pink, warm \T\ dry. 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 14:57 Reassessment: Patient appears in no apparent distress at this time. No changes from vg1 previously documented assessment. Patient and/or family updated on plan of care and expected duration. Pain level reassessed. Patient is alert, oriented x 3, equal unlabored respirations, skin warm/dry/pink. 16:24 Reassessment: Patient appears in no apparent distress at this time. Patient and/or vg1 family updated on plan of care and expected duration. Pain level reassessed. Patient is alert, oriented x 3, equal unlabored respirations, skin warm/dry/pink. 17:36 Reassessment: Patient appears in no apparent distress at this time. Patient and/or vg1 family updated on plan of care and expected duration. Pain level reassessed. Patient is alert, oriented x 3, equal unlabored respirations, skin warm/dry/pink. Patient states feeling better. 19:15 Reassessment: Hospitalist at bedside. vg1 19:27 Reassessment: Patient appears in no apparent distress at this time. Patient and/or vg1 family updated on plan of care and expected duration. Pain level reassessed. Patient is alert, oriented x 3, equal unlabored respirations, skin warm/dry/pink. Patient denies pain at this time. Patient states feeling better. 21:32 Reassessment: Daughter's Phone Number: Mariel Dawson [phone]. vg1 Vital Signs: 13:34 BP 129 / 92; Pulse 134; Resp 22; Temp 99.8; Pulse Ox 97% on R/A; Weight 63.5 kg; Height vg1 5 ft. 3 in. (160.02 cm); 14:57 BP 118 / 93; Pulse 109; Resp 16; Pulse Ox 96% on R/A; vg1 15:00 BP 122 / 91; Pulse 121; Resp 16; Pulse Ox 98% on R/A; vg1 15:30 BP 111 / 74; Pulse 84; Resp 18; Pulse Ox 98% on R/A; vg1 16:00 BP 127 / 80; Pulse 57; Resp 22; Pulse Ox 95% on R/A; vg1 17:00 BP 140 / 69; Pulse 61; Resp 16; Pulse Ox 99% on R/A; vg1 17:36 BP 119 / 81; Pulse 62; Resp 18; Pulse Ox 96% on R/A; vg1 18:00 BP 119 / 99; Pulse 54; Resp 14; Pulse Ox 97% on R/A; vg1 18:30 BP 162 / 64; Pulse 60; Resp 20; Pulse Ox 95% on R/A; vg1 13:34 Body Mass Index 24.80 (63.50 kg, 160.02 cm) vg1 ED Course: 11:45 Initial lab(s) drawn, by ED staff, sent to lab. Inserted saline lock: 20 gauge in left vg1 antecubital area, using aseptic technique. ,using aseptic technique. completed by COREY Titus Blood collected. 13:34 Patient arrived in ED. vg1 13:37 Samir Causey PA is PHCP. jmm 13:37 Anmol Mancia MD is Attending Physician. jmm 13:39 Triage completed. vg1 13:55 EKG done, by ED staff, reviewed by Missy Vegas RN. vg1 14:06 First set of blood cultures drawn by me. vg1 14:10 Missy Vegas, RN is Primary Nurse. vg1 14:15 Patient has correct armband on for positive identification. Placed in gown. Bed in low vg1 position. Call light in reach. Side rails up X2. Adult w/ patient. 14:15 Arm band placed on. vg1 14:19 XRAY Chest (1 view) In Process Unspecified. EDMS 14:57 COVID swab sent to lab. vg1 18:55 CT Head Brain wo Cont In Process Unspecified. EDMS 19:34 Charlie Muñiz MD is Hospitalizing Provider. jmm 20:57 No provider procedures requiring assistance completed. Patient admitted, IV remains in vg1 place. 07/27 06:48 Primary Nurse role handed off by Missy Vegas, RN tt3 Administered Medications: 07/26 15:37 Drug: Nicoderm CQ 14 mg/24 hr 14 mg {Note: Placed on Right upper arm.} Route: vg1 Transdermal; Site: affected area; Outcome: 19:34 Decision to Hospitalize by Provider. jmm 20:57 Admitted to ER Hold. Please see [facility] for further documentation. vg1 20:57 Condition: stable 20:57 Instructed on the need for admit. 07/27 14:15 Patient left the ED. aa5 Signatures: Dispatcher [employer] EDMS Samir Causey PA PA jmm Calderon, Audri, RN RN aa5 Missy Vegas, RN RN vg1 Augustin Harrington tt3
--- NOTE | 2020-07-26 19:35 | EDPHYS ---
Physician Documentation [facility] Name: Silvestre Damico Age: 89 yrs Sex: Female : 1930 Arrival Date: 07/26/2020 Time: 13:34 Bed 24 Private MD: ED Physician Anmol Mancia HPI: 07/26 19:19 This 89 yrs old Female presents to ER via EMS with complaints of syncope, sob.jmm 19:19 The patient has experienced syncope. Onset: The symptoms/episode began/occurred jmm acutely, yesterday. Associated injury: The patient did not suffer any apparent associated injury. Associated signs and symptoms: Pertinent positives: shortness of breath. Current symptoms: headache. Historical: - Allergies: 13:43 Demerol; vg1 13:43 FLU VACCINE; vg1 13:43 Iodine; vg1 - Home Meds: 13:43 metoprolol succinate 25 mg Oral Tb24 1 tab once daily [Active]; Primidone Oral vg1 [Active]; gabapentin 300 mg Oral cap twice a day [Active]; Prilosec Oral [Active]; memantine oral oral [Active]; levocetirizine oral oral [Active]; Senokot Oral [Active]; aspirin 81 mg Oral chew 1 tab once daily [Active]; - PMHx: 13:43 High Cholesterol; Hypertension; Polio; vg1 - PSHx: 13:43 Cardiac bypass; vg1 - Immunization history:: Adult Immunizations up to date. - Social history:: Smoking status: Patient reports the use of cigarette tobacco products. ROS: 19:19 Constitutional: Negative for fever, chills, and weight loss, Cardiovascular: Negative jmm for chest pain, palpitations, and edema. 19:19 Respiratory: Positive for shortness of breath. 19:19 Neuro: Positive for syncope. 19:19 All other systems are negative. Exam: 19:19 Constitutional: This is a well developed, well nourished patient who is awake, alert, jmm and in no acute distress. Head/Face: atraumatic. Eyes: EOMI, no conjunctival erythema appreciated ENT: Moist Mucus Membranes Neck: Trachea midline, Supple Chest/axilla: Normal chest wall appearance and motion. Cardiovascular: Regular rate and rhythm. No edema appreciated Respiratory: Normal respirations, no respiratory distress appreciated Abdomen/GI: Non distended, soft Back: Normal ROM Skin: General appearance color normal MS/ Extremity: Moves all extremities, no obvious deformities appreciated, no edema noted to the lower extremities Neuro: Awake and alert, normal gait Psych: Behavior is normal, Mood is normal, Patient is cooperative and pleasant Vital Signs: 13:34 BP 129 / 92; Pulse 134; Resp 22; Temp 99.8; Pulse Ox 97% on R/A; Weight 63.5 kg; Height vg1 5 ft. 3 in. (160.02 cm); 14:57 BP 118 / 93; Pulse 109; Resp 16; Pulse Ox 96% on R/A; vg1 15:00 BP 122 / 91; Pulse 121; Resp 16; Pulse Ox 98% on R/A; vg1 15:30 BP 111 / 74; Pulse 84; Resp 18; Pulse Ox 98% on R/A; vg1 16:00 BP 127 / 80; Pulse 57; Resp 22; Pulse Ox 95% on R/A; vg1 17:00 BP 140 / 69; Pulse 61; Resp 16; Pulse Ox 99% on R/A; vg1 17:36 BP 119 / 81; Pulse 62; Resp 18; Pulse Ox 96% on R/A; vg1 18:00 BP 119 / 99; Pulse 54; Resp 14; Pulse Ox 97% on R/A; vg1 18:30 BP 162 / 64; Pulse 60; Resp 20; Pulse Ox 95% on R/A; vg1 13:34 Body Mass Index 24.80 (63.50 kg, 160.02 cm) vg1 MDM: 14:00 Patient medically screened. [facility] 19:28 Data reviewed: vital signs, nurses notes. Counseling: I had a detailed discussion with harman the patient and/or guardian regarding: the historical points, exam findings, and any diagnostic results supporting the discharge/admit diagnosis, lab results, radiology results, the need for further work-up and treatment in the hospital. ED course: I discussed the patient with Dr. Muñiz whom accepted the patient for admission.. 07/26 13:51 Order name: Basic Metabolic Panel [facility] 07/26 13:51 Order name: CBC with Diff [facility] 07/26 13:51 Order name: LFT's [facility] 07/26 13:51 Order name: Magnesium [facility] 07/26 13:51 Order name: NT PRO-BNP [facility] 07/26 13:51 Order name: PT-INR [facility] 07/26 13:51 Order name: Troponin (emerg Dept Use Only); Complete Time: 09:21 [facility] 07/26 13:51 Order name: Blood Culture Adult (2) [facility] 07/26 13:51 Order name: Lactate; Complete Time: 14:37 [facility] 07/26 13:51 Order name: Procalcitonin; Complete Time: 17:45 [facility] 07/26 13:51 Order name: Urine Microscopic Only; Complete Time: 17:58 [facility] 07/26 13:52 Order name: Basic Metabolic Panel; Complete Time: 09:21 [facility] 07/26 13:52 Order name: CBC with Automated Diff; Complete Time: 14:07 [facility] 07/26 13:52 Order name: Liver (Hepatic) Function; Complete Time: 09:21 [facility] 07/26 13:51 Order name: XRAY Chest (1 view); Complete Time: 15:09 [facility] 07/26 13:51 Order name: EKG; Complete Time: 13:52 [facility] 07/26 13:51 Order name: Cardiac monitoring; Complete Time: 14:10 [facility] 07/26 13:51 Order name: EKG - Nurse/Tech; Complete Time: 14:10 [facility] 07/26 13:51 Order name: IV Saline Lock; Complete Time: 14:10 [facility] 07/26 13:52 Order name: Magnesium; Complete Time: 09:21 [facility] 07/26 13:52 Order name: NT PRO-BNP; Complete Time: 09:21 [facility] 07/26 13:52 Order name: Protime (+INR); Complete Time: 14:18 [facility] 07/26 14:45 Order name: COVID-19 : Document "Date of Symptom Onset" if Symptomatic. vg1 07/26 16:15 Order name: SARS-COV-2 RT PCR; Complete Time: 16:16 [facility] 07/26 16:44 Order name: Urine Dipstick-Ancillary; Complete Time: 16:45 [facility] 07/26 17:50 Order name: CT Head Brain wo Cont; Complete Time: 19:06 [facility] 07/26 22:55 Order name: Thyroid Stimulating Hormone; Complete Time: 09:21 [facility] 07/26 13:51 Order name: Labs collected and sent; Complete Time: 14:10 [facility] 07/26 13:51 Order name: O2 Per Protocol; Complete Time: 14:10 [facility] 07/26 13:51 Order name: O2 Sat Monitoring; Complete Time: 14:10 [facility] 07/26 13:51 Order name: Urine Dipstick-Ancillary (obtain specimen); Complete Time: 16:45 [facility] 07/26 19:18 Order name: EKG - Nurse/Tech; Complete Time: 20:55 [facility] Administered Medications: 15:37 Drug: Nicoderm CQ 14 mg/24 hr 14 mg {Note: Placed on Right upper arm.} Route: vg1 Transdermal; Site: affected area; Disposition: 07/28 09:27 Co-signature as Attending Physician, Anmol Mancia MD I agree with the assessment and amy plan of care. Disposition: 07/26/20 19:34 Hospitalization ordered by Charlie Muñiz for Observation. Preliminary diagnosis are Atrial fibrillation and flutter, Syncope and collapse. - Bed requested for [facility] ER HOLD. - Status is Observation. aa5 - Condition is Stable. - Problem is new. - Symptoms have improved. Signatures: Dispatcher [employer] EDWV Anmol Mancia MD MD cha Mickail, Joel, PA PA Fiordaliza Bella, RN RN aa5 Mariel Vegas RN Missy Bush RN RN vg1 Corrections: (The following items were deleted from the chart) 07/26 15:30 13:52 CORONAVIRUS+MR.LAB.BRZ ordered. [facility] EDWV 18:44 17:52 Chest For PE Angio+CT.RAD.BRZ ordered. [facility] 20:08 19:34 Hospitalization Ordered by A Mary Kay DE LA TORRE for Observation. Preliminary diagnosis is cg Atrial fibrillation and flutter; Syncope and collapse. Bed requested for Telemetry/MedSurg (Inpatient). Status is Observation. Condition is Stable. Problem is new. Symptoms have improved. [facility] 07/27 14:15 07/26 20:08 07/26/2020 19:34 Hospitalization Ordered by A Mary Kay DE LA TORRE for Observation. aa5 Preliminary diagnosis is Atrial fibrillation and flutter; Syncope and collapse. Bed requested for [facility] ER HOLD. Status is Observation. Condition is Stable. Problem is new. Symptoms have improved. cg
[2020-07-26] MEDS ORDERED: ACETAMINOPHEN 500 MG TAB PO PRN (22:06)
--- NOTE | 2020-07-26 22:23 | HP ---
Date of Admission: 07/26/2020 Chief Complaint: Feeling weak and fainting episode. History Of Present Illness: This 89-year-old female patient who was doing fine in her normal usual state of health until yesterday she started to feel weak and tired and had 1 episode of fainting. She recovered on her own, did not seek any medical attention and today she had similar episode and she fell down on the floor. She fell backwards with this fainting episode and when she woke up she was talking to someone on the phone. She does not know who talked to and that particular person ended up calling 911 and also contacted the patient's daughter. The patient was brought into emergency room. By the time the patient's daughter went to her house to check on her, she was sitting, talking like her normal self. When EMS arrived and brought her to ER in ambulance, she was in atrial fibrillation with rapid ventricular rate with heart rate around 180. She was given IV diltiazem x1 dose. After she came to the ER, she did not receive any further medications and she converted to sinus rhythm without use of any extra medications in emergency room. She denies any chest pain, no shortness of breath. I saw her in the emergency room. Her daughter was with her at bedside. Allergies: TO IODINE, TRAMADOL, AND DEMEROL. Medications: Aspirin 81 mg daily, Senokot-S 2 tablets by mouth 2 times a day, gabapentin 300 mg 2 times a day, levocetirizine 5 mg daily, lidocaine 2% topical solution to upper lip 3 times a day as needed for pain, losartan 25 mg daily, memantine 5 mg p.o. 2 times a day, metoprolol succinate 25 mg daily, MiraLax daily as needed for constipation, pravastatin 40 mg daily at bedtime, primidone 50 mg daily. Review of Systems: SENIOR SHAREPOINT DEVELOPER: As mentioned above. Cardiovascular: As mentioned above. All other systems reviewed and negative. 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 Osteoarthritis at multiple sites and scoliosis. 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 Family History: Father had hypertension. Mother had coronary artery disease. Social History: Positive for smoking and use of alcohol negative. Physical Examination: Vital Signs: Weight 139 pounds, height 5 feet, 3 inches, temperature 99.8, pulse 134, respiratory rate 22, blood pressure 129/92, oxygen saturation 97%. General: Awake, alert, oriented, not in distress. HEENT: Head atraumatic, normocephalic. Conjunctivae nonerythematous. Sclerae white. Mouth, no thrush or edema noted. Ears/Nose, no mass, lesion, discharge noted. Neck: Supple. No JVD, lymph nodes, bruit, thyromegaly noted. Lungs: Bilateral good equal air entry. Clear to auscultation. No rhonchi. No rales. Heart: Normal heart sounds, no murmur or gallop. Abdomen: Soft, bowel sounds normal. No guarding, rigidity, tenderness, mass, hepatosplenomegaly, distention, or bruit noted. Extremities: No leg edema. No calf tenderness. Skin: No rash, ulcer, cellulitis. Lymphatics: No lymph node enlargement in neck, supraclavicular, infraclavicular region. Neuro: No focal neurological deficit. Chest: Unremarkable. External Genitalia: Deferred. Rectal: Deferred. Laboratory Data: EKG atrial fibrillation with rapid ventricular rate. White count 8.9, hemoglobin 13.2, platelets 236. Sodium 142, potassium 3.6, chloride 107, bicarb 26, BUN 12, creatinine 1.13, glucose 137. Liver function tests unremarkable. Lactic acid 1.8. Procalcitonin less than 0.02. BNP 1397. COVID-19 test negative. Urinalysis negative except leukocyte esterase trace. Impression: 1. Atrial fibrillation, paroxysmal. 2. Syncope. 3. Coronary artery disease. 4. Hypertension. 5. Hyperlipidemia. 6. Carotid artery stenosis, bilateral. 7. Chronic kidney disease, stage 3B. 8. Osteoarthritis, multiple sites. Plan: We will go ahead and admit the patient to hospital for further evaluation and management of this problem. The patient is appropriate for inpatient and is expected to spend 2 midnights in hospital. We will continue home medications per order. We will get echo with Doppler. Consult national accounts recruiter and we will discuss with national accounts recruiter regarding further plan of treatment. We will start her on Eliquis 2.5 mg 2 times a day once we get confirmation on the CAT scan of the head result which is still pending. Details and plan of treatment discussed with patient and patient's daughter. I will see her tomorrow morning for followup. ROSANNA Voice ID: [id number] MTDD
[2020-07-27 01:23] VITALS: BMI 24.7
[2020-07-27] MEDS ORDERED: PNEUMOCOCCAL VACCINE 0.5 ML IMVAC ONE ×2 (08:00→13:23)
[2020-07-27] MEDS ORDERED: APIXABAN 2.5 MG TABLET PO SCH (09:00)
[2020-07-27] MEDS ORDERED: MEMANTINE HCL 10 MG TABLET PO SCH (09:00)
[2020-07-27] MEDS ORDERED: GABAPENTIN 300 MG CAP PO SCH (09:00)
[2020-07-27] MEDS ORDERED: METOPROLOL XL 25 MG TAB PO SCH (09:00)
[2020-07-27] MEDS ORDERED: LOSARTAN POTASSIUM 50 MG TABLET PO SCH (09:00)
[2020-07-27] MEDS ORDERED: GABAPENTIN 300 MG CAP ONE (10:02)
[2020-07-27 12:21] VITALS: O2SAT 92
[2020-07-27 13:59] VITALS: BP 158/60; TEMP 97
--- NOTE | 2020-07-28 07:22 | EKG ---
Test Date: 2020-07-26 Test Time: 20:51:43 Instruction Assistant Principal: FLAVIA MEASUREMENT RESULTS: Intervals: Rate: 58 HI: 132 QRSD: 116 QT: 492 QTc: 482 [place]: P: 28 HI: 132 QRS: 68 T: 49 INTERPRETIVE STATEMENTS: Sinus bradycardia with occasional premature ventricular complexes Incomplete right bundle branch block Right ventricular hypertrophy with repolarization abnormality Abnormal ECG Compared to ECG 07/26/2020 13:46:29 Incomplete right bundle-branch block now present Right ventricular hypertrophy now present Early repolarization now present Atrial flutter no longer present Right bundle-branch block no longer present Electronically Signed On 07-28-20 07:18:26 CDT by Dhiraj aRmos
--- NOTE | 2020-07-28 07:24 | EKG ---
Test Date: 2020-07-26 Test Time: 13:46:29 First Leveler: FLAVIA MEASUREMENT RESULTS: Intervals: Rate: 120 VT: QRSD: 116 QT: 344 QTc: 486 [place]: P: VT: QRS: 65 T: 58 INTERPRETIVE STATEMENTS: Atrial flutter with variable AV block with premature ventricular or aberrantly conducted complexes Right bundle branch block Abnormal ECG Compared to ECG 11/24/2018 03:34:34 Ventricular premature complex(es) now present Right bundle-branch block now present Sinus rhythm no longer present Incomplete right bundle-branch block no longer present Electronically Signed On 07-28-20 07:18:45 CDT by Dhiraj Ramos
--- NOTE | 2020-07-29 02:39 | DS ---
Date of Discharge: 07/27/2020 Disposition: Discharged to go home. Physical Examination: HEENT: Unremarkable. Lungs: Clear to auscultation. Heart: Sounds normal. Abdomen: Soft. Bowel sounds normal. No guarding, rigidity, tenderness, or distention. Extremities: No leg edema. Discharge Medications And Instructions: 1. Continue all prior home medication except stop aspirin. 2. Start Eliquis 2.5 mg 2 times a day. 3. Follow up at my office next week. 4. Follow up with Dr. Ramos in 2 to 3 weeks. Hospital Course: This is an 89-year-old female patient admitted to the hospital with complaints of feeling weak and fainting type of episodes. Please see dictated H and P for more information. The patient was admitted to the hospital with syncope and new-onset atrial fibrillation. She was given IV diltiazem in ambulance and after she came to emergency room, she did not receive any further medication for this atrial fibrillation. She converted to sinus rhythm and her heart rate remained between 50 to 60. Cardiology consultation was obtained from Dr. Ramos. Details were discussed with Dr. Ramos and plan is to continue Eliquis 2.5 mg 2 times a day, which was started during this hospital stay and Dr. Ramos has informed the patient to use extra dose of metoprolol in case if she has palpitation or rapid heartbeat feeling. She may have underlying sick sinus syndrome that we will have to look into it. Her labs reviewed. Final Diagnoses: 1. Atrial fibrillation, paroxysmal. 2. Syncope. 3. Coronary artery disease. 4. Hypertension. 5. Hyperlipidemia. 6. Carotid artery stenosis, bilateral. 7. Chronic kidney disease, stage 3B. 8. Osteoarthritis, multiple sites. Laboratory Data: Sodium 142, potassium 3.6, chloride 107, bicarb 26, BUN 12, creatinine 1.13, glucose 131. Liver function tests unremarkable. Troponin less than 0.02. Procalcitonin less than 0.05. TSH 1.32, magnesium 2. White count 8.9, hemoglobin 13.2, platelets 236. MELLISA/MODL Voice ID: [id number] Report ID: [id number] [facility]
--- NOTE | 2020-07-30 19:28 | CON ---
Date of Consultation: 07/27/2020 Reason For Consultation: Rapid atrial fibrillation. History Of Present Illness: Ms. Damico is an 89-year-old woman, who came in with syncope, known to have history of hypertension, dyslipidemia, polio, coronary artery bypass surgery. She was noted to be in atrial fibrillation. She mainly complained initially of being weak and having a falling spell s. She was given IV diltiazem x1 dose en route to the emergency room via ambulance. By the time she got to the emergency room, she was in a sinus rhythm with a heart rate of 60 and she had a normal bl ood pressure. Never had any chest pain, shortness of breath, nausea, vomiting, or diaphoresis. Alex ed PND, orthopnea, pedal edema, or palpitation. Review of Systems: Negative. Social History: Negative. Family History: Noncontributory. Medications: Aspirin, gabapentin, levothyroxine, memantine, metoprolol, MiraLAX, and pravastatin. Allergies: SHE IS ALLERGIC TO IODINE, TRAMADOL, AND DEMEROL. Past Medical History: Include polio, thyroid nodule, dyslipidemia, coronary artery disease, stenosis of the celiac artery and superior mesenteric artery, carotid artery stenosis, chronic kidney disease stage 3B, spondylosis and scoliosis. She had history of cholecystectomy in the past as well as [place] ract surgery. Physical Examination: VITAL SIGNS: Blood pressure 160/60, pulse of 57, afebrile. HEENT: Negative. Neck: Supple without any bruit, lymphadenopathy, JVD, or thyromegaly. Chest: Clear to auscultation and percussion. Cardiac: Irregularly irregular rhythm without any gallops or rubs. She had what sounds like an aort ic sclerosis and murmur. Abdomen: Benign. Extremities: No clubbing, cyanosis, or edema. Diagnostic Data: Fairly unremarkable except for slightly elevated BNP. Impression: 1.Syncope, possibly secondary to paroxysmal atrial fibrillation. 2.Hypertension. 3.Dyslipidemia. 4.Coronary artery disease. 5.Bilateral cerebrovascular disease. 6.Chronic kidney disease. 7.Osteoarthritis. Plan: Echocardiogram with Doppler is pending. I think the patient needs to be on Eliquis 2.5 mg b.i .d. She should continue on low-dose metoprolol at home. I will follow her in the office as an outpa tient. If she continues to have syncope, we will monitor her to make sure she did not have tachy-bra dy syndrome. Other than this episode of syncope, all her other problems are stable at this point. S he can go home today. I will see her in the office in 2 weeks. Case was discussed with Dr. Muñiz. NICANOR/LUMA Voice ID: [id number] Report ID: [id number]
== END 2020-07-27 13:35 | disposition home or self-care (01) ==
LOC: ER 13:31 → INTOOBSV 21:26 → ERHOLD 21:26
PROVIDERS: ADMIT Internal Medicine; ATTEND Internal Medicine
DX: R55 Syncope and collapse (principal); I48.0 Paroxysmal atrial fibrillation; I25.10 Atherosclerotic heart disease of native coronary artery without angina pectoris; I12.9 Hypertensive chronic kidney disease with stage 1 through stage 4 chronic kidney disease, or unspecified chronic kidney disease; N18.32 Chronic kidney disease, stage 3b; E78.5 Hyperlipidemia, unspecified; Z20.822 Contact with and (suspected) exposure to COVID-19; I65.23 Occlusion and stenosis of bilateral carotid arteries; M15.9 Polyosteoarthritis, unspecified; E78.2 Mixed hyperlipidemia; M47.9 Spondylosis, unspecified; M41.9 Scoliosis, unspecified; R94.31 Abnormal electrocardiogram [ECG] [EKG]
CPT/HCPCS: 36415; 70450; 71045; 80048; 80076; 81003; 81015; 83605; 83735; 83880; 84145; 84443; 84484; 85025; 85610; 87040; 90471; 90732; 93005; 99285; G0378; U0003

== ENCOUNTER 2020-12-28 12:18 | Emergency (ER) | payer OTHER ==
--- NOTE | 2020-12-28 15:04 | EDPHYS ---
Physician Documentation [facility] Name: Silvestre Damico Age: 89 yrs Sex: Female : 1930 Arrival Date: 12/28/2020 Time: 12:19 Bed 9 Private MD: ED Physician Anmol Mancia HPI: 12/28 14:53 This 89 yrs old Female presents to ER via Wheelchair with complaints of Wound amy Check. 14:53 Patient presents to ED for recheck of: skin tears. The affected area is on the left amy delgado. Progress: The patient reports decreased. The patient has not experienced similar symptoms in the past. Historical: - Allergies: 12:38 Demerol; jl7 12:38 FLU VACCINE; jl7 12:38 Iodine; jl7 - PMHx: 12:38 High Cholesterol; Hypertension; Polio; jl7 - PSHx: 12:38 Coronary artery bypass graft; Stented artery; jl7 - Immunization history:: Adult Immunizations not up to date, Client reports having NOT received the Covid vaccine. - Social history:: Smoking status: Patient reports the use of cigarette tobacco products, smokes one pack cigarettes per day. - Family history:: not pertinent. ROS: 14:53 Constitutional: Negative for fever, chills, and weight loss, Eyes: Negative for injury, amy pain, redness, and discharge, ENT: Negative for injury, pain, and discharge, Neck: Negative for injury, pain, and swelling, Cardiovascular: Negative for chest pain, palpitations, and edema, Respiratory: Negative for shortness of breath, cough, wheezing, and pleuritic chest pain, Abdomen/GI: Negative for abdominal pain, nausea, vomiting, diarrhea, and constipation, Back: Negative for injury and pain, : Negative for injury, bleeding, discharge, and swelling, Skin: Negative for injury, rash, and discoloration, Neuro: Negative for headache, weakness, numbness, tingling, and seizure, Psych: Negative for depression, anxiety, suicide ideation, homicidal ideation, and hallucinations, Allergy/Immunology: Negative for hives, rash, and allergies, Endocrine: Negative for neck swelling, polydipsia, polyuria, polyphagia, and marked weight changes, Hematologic/Lymphatic: Negative for swollen nodes, abnormal bleeding, and unusual bruising. 14:53 MS/extremity: Positive for pain, of the left leg. Exam: 14:53 Constitutional: This is a well developed, well nourished patient who is awake, alert, amy and in no acute distress. Head/Face: Normocephalic, atraumatic. Eyes: Pupils equal round and reactive to light, extra-ocular motions intact. Lids and lashes normal. Conjunctiva and sclera are non-icteric and not injected. Cornea within normal limits. Periorbital areas with no swelling, redness, or edema. ENT: Nares patent. No nasal discharge, no septal abnormalities noted. Tympanic membranes are normal and external auditory canals are clear. Oropharynx with no redness, swelling, or masses, exudates, or evidence of obstruction, uvula midline. Mucous membranes moist. Neck: Trachea midline, no thyromegaly or masses palpated, and no cervical lymphadenopathy. Supple, full range of motion without nuchal rigidity, or vertebral point tenderness. No Meningismus. Chest/axilla: Normal chest wall appearance and motion. Nontender with no deformity. No lesions are appreciated. Cardiovascular: Regular rate and rhythm with a normal S1 and S2. No gallops, murmurs, or rubs. Normal PMI, no JVD. No pulse deficits. Respiratory: Lungs have equal breath sounds bilaterally, clear to auscultation and percussion. No rales, rhonchi or wheezes noted. No increased work of breathing, no retractions or nasal flaring. Abdomen/GI: Soft, non-tender, with normal bowel sounds. No distension or tympany. No guarding or rebound. No evidence of tenderness throughout. Back: No spinal tenderness. No costovertebral tenderness. Full range of motion. Female : Normal external genitalia. Skin: Warm, dry with normal turgor. Normal color with no rashes, no lesions, and no evidence of cellulitis. Neuro: Awake and alert, GCS 15, oriented to person, place, time, and situation. Cranial nerves II-XII grossly intact. Motor strength 5/5 in all extremities. Sensory grossly intact. Cerebellar exam normal. Normal gait. Psych: Awake, alert, with orientation to person, place and time. Behavior, mood, and affect are within normal limits. 14:53 Musculoskeletal/extremity: ROM: intact in all extremities, full active range of motion, full passive range of motion, Circulation is intact in all extremities. Sensation intact. Compartment Syndrome exam of affected extremity: is normal. Joints: All joints appear normal with full range of motion. DVT Exam: no swelling, no tenderness, negative Homans' sign noted on exam, no appreciated bluish discoloration, no erythema, no increased warmth, pain. Vital Signs: 12:35 BP 105 / 76; Pulse 59; Resp 17; Temp 99.1; Pulse Ox 99% ; Weight 61.23 kg; Height 5 ft. jl7 4 in. (162.56 cm); Pain 10/10; 15:25 BP 133 / 93; Pulse 53; Resp 15; Pulse Ox 100% ; tc5 12:35 Body Mass Index 23.17 (61.23 kg, 162.56 cm) jl7 MDM: 14:06 Patient medically screened. amy 15:07 Differential diagnosis: cellulitis. Data reviewed: vital signs, nurses notes. Data amy interpreted: nurse monitoring: rate is 59 beats/min, rhythm is regular, Pulse oximetry: on room air is 99 %. Counseling: I had a detailed discussion with the patient and/or guardian regarding: the historical points, exam findings, and any diagnostic results supporting the discharge/admit diagnosis, lab results, the need for outpatient follow up, for definitive care, a general surgeon, an construction project administrator. 12/28 14:53 Order name: Wound Care; Complete Time: 15:25 amy Administered Medications: 15:10 Drug: Bactroban (mupirocin) Ointment 2 % 1 application {Note: LLE wound..} Route: tc5 Topical; Site: affected area; 15:25 Follow up: Response: No adverse reaction tc5 15:20 Drug: fentaNYL Patch (25 mcg/hr) 1 patches {Note: Applied to the rt deltoid area per pt tc5 request..} Route: Transdermal; Site: affected area; 15:26 Follow up: Response: No adverse reaction tc5 Disposition Summary: 12/28/20 15:03 Discharge Ordered Location: Home amy Problem: new amy Symptoms: have improved amy Condition: Stable amy Diagnosis - Laceration without foreign body, left lower leg amy - Tobacco abuse counseling amy - Tobacco use amy - Venous insufficiency (chronic) (peripheral) amy - Peripheral vascular disease, unspecified amy Followup: amy - With: Private Physician - When: 2 - 3 days - Reason: Recheck today's complaints, Continuance of care, Re-evaluation by your physician Followup: amy - With: Charlie Muñiz MD - When: 2 - 3 days - Reason: Recheck today's complaints, Continuance of care, Re-evaluation by your physician Followup: amy - With: Phill Llanos MD - When: 2 - 3 days - Reason: Recheck today's complaints, Re-evaluation by your physician Discharge Instructions: - Discharge Summary Sheet amy - Peripheral Vascular Disease amy - Steps to Quit Smoking amy - Health Risks of Smoking amy - Venous Ulcer amy - Aspirin and Your Heart amy - Venous Ulcer, [facility] Forms: - Medication Reconciliation Form amy - Thank You Letter amy - Antibiotic Education amy - Prescription Opioid Use [facility] Prescriptions: - Centany 2 % Topical ointment - apply 1 application by TOPICAL route 3 times per day; 30 gram; Refills: 0, [facility] Product Selection Permitted - Tramadol 50 mg Oral Tablet - take 1 tablet by ORAL route every 8 hours as needed; 15 tablet; Refills: 0, amy Product Selection Permitted Signatures: Anmol Mancia MD MD cha Leal, Jahala, RN RN jl7 Esperanza Ruiz RN RN tc5
--- NOTE | 2020-12-28 15:04 | ER ---
Nurse's Notes [facility] Name: Silvestre Damico Age: 89 yrs Sex: Female : 1930 Arrival Date: 12/28/2020 Time: 12:19 Bed 9 Private MD: Diagnosis: Laceration without foreign body, left lower leg;Tobacco abuse counseling;Tobacco use;Venous insufficiency (chronic) (peripheral);Peripheral vascular disease, unspecified Presentation: 12/28 12:35 Chief complaint: Patient's son or daughter states: Bilateral leg pain, weak and shaky, jl7 Dr. Muñiz sent her to be checked out. Coronavirus screen: At this time, the client does not indicate any symptoms associated with coronavirus-19. Ebola Screen: No symptoms or risks identified at this time. Initial Sepsis Screen: Does the patient meet any 2 criteria? No. Patient's initial sepsis screen is negative. Does the patient have a suspected source of infection? No. Patient's initial sepsis screen is negative. Risk Assessment: Do you want to hurt yourself or someone else? Patient reports no desire to harm self or others. Onset of symptoms was December 28, 2020. 12:35 Method Of Arrival: Wheelchair jl7 12:35 Acuity: SUPRIYA 3 jl7 Triage Assessment: 12:38 General: Appears in no apparent distress. uncomfortable, Behavior is calm, cooperative, jl7 appropriate for age. Pain: Complains of pain in right leg and left leg Pain currently is 10 out of 10 on a pain scale. Historical: - Allergies: 12:38 Demerol; jl7 12:38 FLU VACCINE; jl7 12:38 Iodine; jl7 - PMHx: 12:38 High Cholesterol; Hypertension; Polio; jl7 - PSHx: 12:38 Coronary artery bypass graft; Stented artery; jl7 - Immunization history:: Adult Immunizations not up to date, Client reports having NOT received the Covid vaccine. - Social history:: Smoking status: Patient reports the use of cigarette tobacco products, smokes one pack cigarettes per day. - Family history:: not pertinent. Screenin:26 Abuse screen: Denies threats or abuse. Denies injuries from another. Nutritional tc5 screening: No deficits noted. Tuberculosis screening: No symptoms or risk factors identified. Fall Risk Gait- Weak (10 pts.). Assessment: 14:24 Reassessment: Patient appears in no apparent distress at this time. General: Appears tc5 uncomfortable, Behavior is calm, cooperative, appropriate for age, pt and pt daughter reports pt has BLE pain and was sent here by PCP to be evaluated.. Pain: Complains of pain in lateral aspect of right calf, right ankle, right calf, right Achilles, medial aspect of right calf, right delgado, anterior aspect of right ankle and left leg. Neuro: Reports HX of PVD.. Derm: discolored BLE, bandage on RLE. Vital Signs: 12:35 BP 105 / 76; Pulse 59; Resp 17; Temp 99.1; Pulse Ox 99% ; Weight 61.23 kg; Height 5 ft. jl7 4 in. (162.56 cm); Pain 10/10; 15:25 BP 133 / 93; Pulse 53; Resp 15; Pulse Ox 100% ; tc5 12:35 Body Mass Index 23.17 (61.23 kg, 162.56 cm) jl7 ED Course: 12:19 Patient arrived in ED. as 12:38 Triage completed. jl7 12:38 Arm band placed on right wrist. jl7 12:39 Patient placed in waiting room, Patient notified of wait time. jl7 14:06 Anmol Mancia MD is Attending Physician. [facility] 14:23 Esperanza Ruiz, COREY is Primary Nurse. tc5 15:00 Charlie Muñiz MD is Referral Physician. [facility] 15:01 Phill Llanos MD is Referral Physician. [facility] 15:26 Wound care: Wound to the LLE cleaned and dressed with ABX ointment, telfa, and terri vasquez secured with tape. Administered Medications: 15:10 Drug: Bactroban (mupirocin) Ointment 2 % 1 application {Note: LLE wound..} Route: tc5 Topical; Site: affected area; 15:25 Follow up: Response: No adverse reaction tc5 15:20 Drug: fentaNYL Patch (25 mcg/hr) 1 patches {Note: Applied to the rt deltoid area per pt tc5 request..} Route: Transdermal; Site: affected area; 15:26 Follow up: Response: No adverse reaction tc5 Outcome: 15:03 Discharge ordered by . [facility] 15:31 Patient left the ED. tc5 Signatures: Anmol Mancia MD MD cha Martinez, Amelia as Leal, Jahala, RN RN jl7 Esperanza Ruiz RN RN tc5
[2020-12-28 15:37] VITALS: TEMP 99.1
[2020-12-28 15:38] VITALS: BP 133/93; O2SAT 100
[2020-12-28] MEDS ORDERED: FENTANYL 25 MCG/PATCH TD ONE (15:40)
== END 2020-12-28 15:31 | disposition home or self-care (01) ==
LOC: ER 12:18
DX: S81.812D Laceration without foreign body, left lower leg, subsequent encounter (principal); I87.2 Venous insufficiency (chronic) (peripheral); I73.9 Peripheral vascular disease, unspecified; I10 Essential (primary) hypertension; Z71.6 Tobacco abuse counseling; Z72.0 Tobacco use; Z88.5 Allergy status to narcotic agent; Z88.7 Allergy status to serum and vaccine; Z95.1 Presence of aortocoronary bypass graft; Z91.048 Other nonmedicinal substance allergy status
CPT/HCPCS: 99283

== ENCOUNTER 2021-01-03 15:19 | Emergency (ER) | payer OTHER ==
[2021-01-03 17:03] LABS: Absolute Lymphocytes (CBC) 1.8 K/uL (0.7-4.9); Basophils % 0.7 % (0-1.3); Hematocrit 37.7 % (36.0-45.0); Lymphocytes % 26.2 % (15.3-44.8); MPV 8.8 fL (7.6-11.3); RBC Red Blood Cell Count 4.05 M/uL (3.86-4.86)
--- NOTE | 2021-01-03 17:32 | RAD REPORT ---
EXAM DESCRIPTION: RAD - Chest Single View - 01/03/2021 5:24 pm CLINICAL HISTORY: Confusion COMPARISON: Chest Single View dated 07/26/2020; Chest Single View dated 11/23/2018; Chest Single View da susan 02/05/2017; Chest Single View dated 05/29/2016 FINDINGS: Lines: None. Lungs: No evidence of edema or pneumonia. Pleural: No significant pleural effusions or pneumothorax. Cardiac: The heart size is within normal limits. Bones: No acute fractures. Sternotomy. Other: IMPRESSION: No acute cardiopulmonary disease.
[2021-01-03 18:55] LABS: Urine Blood Negative (Negative); Urine Glucose Negative (Negative); Urine Protein Negative (Negative); Urine Specific Gravity 1.015 (1.005-1.030)
[2021-01-03 18:56] LABS: Urine Bacteria <20 /HPF (<20); Urine RBC NONE SEEN /HPF (NONE SEEN)
[2021-01-03 18:57] LABS: Calcium Oxalate Crystals- Ur FEW (NONE SEEN)
[2021-01-03 18:59] LABS: ALT/SGPT 19 U/L (12-78); AST/SGOT 19 U/L (15-37); Albumin 3.2 g/dL (3.4-5.0); Alkaline Phosphatase 96 U/L (45-117); Amylase 52 U/L (25-115); BUN Blood Urea Nitrogen 13 mg/dL (7-18); Bicarbonate 31 mmol/L (21-32); Bilirubin Direct < 0.1 mg/dL (0-0.2); Bilirubin Total 0.2 mg/dL (0.2-1.0); Creatine Phosphokinase 63 U/L (26-192); Glucose Level 112 mg/dL (74-106); Lipase 93 U/L (73-393); Protein, Total 6.3 g/dL (6.4-8.2); Sodium Level 145 mmol/L (136-145); Troponin (Emerg Dept Use Only) < 0.02 ng/mL (0.0-0.045)
[2021-01-03 19:01] LABS: CKMB Creatine Kinase MB < 1.0 ng/mL (1.0-3.6)
--- NOTE | 2021-01-03 19:37 | ER ---
Nurse's Notes [facility] Name: Silvestre Damico Age: 89 yrs Sex: Female : 1930 Arrival Date: 01/03/2021 Time: 15:21 Bed 26 Private MD: Diagnosis: Altered mental status, unspecified Presentation: 01/03 15:21 Chief complaint: EMS states: toned out by pt family for possible stroke, slurred speech ld1 and altered mental status. Family reports patient has been hallucinating and seeing people for one day. Coronavirus screen: At this time, the client does not indicate any symptoms associated with coronavirus-19. Ebola Screen: No symptoms or risks identified at this time. Initial Sepsis Screen: Does the patient meet any 2 criteria? No. Patient's initial sepsis screen is negative. Does the patient have a suspected source of infection? No. Patient's initial sepsis screen is negative. Risk Assessment: Do you want to hurt yourself or someone else? Patient reports no desire to harm self or others. Onset of symptoms was January 02, 2021. 15:21 Method Of Arrival: EMS: [facility] ld1 15:21 Acuity: SUPRIYA 3 ld1 Triage Assessment: 15:25 General: Appears in no apparent distress. comfortable, Behavior is calm, cooperative, ld1 appropriate for age. General:. Pain: Denies pain. EENT: No signs and/or symptoms were reported regarding the EENT system. EENT:. Neuro: Level of Consciousness is awake, alert, confused, Oriented to person. Neuro:. Neuro:. Cardiovascular: Capillary refill < 3 seconds Patient's skin is warm and dry. Rhythm is sinus bradycardia. Respiratory: Airway is patent Respiratory effort is even, unlabored, Respiratory pattern is regular, symmetrical. GI: Abdomen is round non-distended. : No signs and/or symptoms were reported regarding the genitourinary system. Derm: No signs and/or symptoms reported regarding the dermatologic system. Musculoskeletal: No signs and/or symptoms reported regarding the musculoskeletal system. Historical: - Allergies: 15:25 Demerol; ld1 15:25 FLU VACCINE; ld1 15:25 Iodine; ld1 15:25 Codeine; ld1 15:25 PENICILLINS; ld1 - Home Meds: 15:25 primidone 50 mg oral tab once daily [Active]; pravastatin 40 mg oral tab 1 tab once ld1 daily [Active]; metoprolol succinate 50 mg oral CSpX 1 cap once daily [Active]; gabapentin 300 mg Oral cap twice a day [Active]; clopidogrel 75 mg oral tab 1 tab once daily [Active]; memantine 10mg Oral 1 cap 2 times per day [Active]; aspirin 81 mg Oral chew 1 tab once daily [Active]; - PMHx: 15:25 High Cholesterol; Hypertension; Polio; Schizophrenia; Alzheimer's disease; ld1 - PSHx: 15:25 Coronary artery bypass graft; Stented artery; ld1 - Immunization history:: Adult Immunizations up to date. - Social history:: Smoking status: Patient denies any tobacco usage or history of. Screenin:08 Abuse screen: Denies threats or abuse. Nutritional screening: No deficits noted. oh Tuberculosis screening: No symptoms or risk factors identified. Fall Risk Gait- Weak (10 pts.). Assessment: 19:07 Neuro: Level of Consciousness is awake, alert, confused, Oriented to person, place, oh Appropriate for age. 19:08 General: Reports caregiver reports pt more sleepy than usual. oh Vital Signs: 15:21 BP 141 / 73; Pulse 61; Resp 17; Temp 98.7(TE); Pulse Ox 96% on R/A; Weight 63.5 kg; ld1 Height 5 ft. 4 in. (162.56 cm); Pain 0/10; 19:09 BP 168 / 80; Pulse 58; Resp 19; Pulse Ox 100% on R/A; oh 20:57 BP 150 / 78; Pulse 60; Resp 17; Temp 98.2(O); Pulse Ox 100% on R/A; Pain 1/10; bc5 15:21 Body Mass Index 24.03 (63.50 kg, 162.56 cm) ld1 ED Course: 15:21 Patient arrived in ED. ld1 15:24 Triage completed. ld1 15:25 Arm band placed on right wrist. EKG completed in triage. Results shown to MD. ld1 15:59 Jonathan Lazcano, RN is Primary Nurse. oh 16:31 Inserted saline lock: 20 gauge in left antecubital area, using aseptic technique. Blood oh collected. 16:39 Nikolay Schaffer MD is Attending Physician. kdr 17:09 Amylase, Serum Sent. oh 17:09 Basic Metabolic Panel Sent. oh 17:10 Blood Culture Adult (2) Sent. oh 17:10 CBC with Diff Sent. oh 17:10 CPK Sent. oh 17:23 Chest Single View XRAY In Process Unspecified. EDMS 19:16 Bed in low position. Call light in reach. oh 19:36 Anant Muñiz MD is Referral Physician. kdr 19:55 CT Head Brain wo Cont In Process Unspecified. EDMS 20:57 No provider procedures requiring assistance completed. IV discontinued, intact, bc5 bleeding controlled, No redness/swelling at site. Administered Medications: No medications were administered Outcome: 19:37 Discharge ordered by . kdr 20:57 Discharged to home via wheelchair, with family. bc5 20:57 Condition: improved 20:57 Discharge instructions given to patient, family, Instructed on discharge instructions, follow up and referral plans. 20:58 Patient left the ED. 5 Signatures: Dispatcher [employer] EDMS Nikolay Schaffer MD MD [facility] Libertad Guerrero, COREY RN ld1 Mary Cuellar, RN RN bc5 Jonathan Lazcano, COREY RN oh
--- NOTE | 2021-01-03 19:38 | EDPHYS ---
Physician Documentation [facility] Name: Silvestre Damico Age: 89 yrs Sex: Female : 1930 Arrival Date: 01/03/2021 Time: 15:21 Bed 26 Private MD: ED Physician Nikolay Schaffer HPI: 01/04 17:03 This 89 yrs old Female presents to ER via EMS with complaints of Altered kdr Mental Status. 17:03 The patient presents with confusion, decreased mental status, decreased responsiveness. kdr Onset: The symptoms/episode began/occurred 3 day(s) ago. Possible causes: CVA or TIA, low blood sugar. Associated signs and symptoms: Pertinent positives: confusion. Patient's baseline: Neuro: alert and fully oriented, Motor: no deficits. The patient has not recently seen a physician. Historical: - Allergies: 01/03 15:25 Demerol; ld1 15:25 FLU VACCINE; ld1 15:25 Iodine; ld1 15:25 Codeine; ld1 15:25 PENICILLINS; ld1 - Home Meds: 15:25 primidone 50 mg oral tab once daily [Active]; pravastatin 40 mg oral tab 1 tab once ld1 daily [Active]; metoprolol succinate 50 mg oral CSpX 1 cap once daily [Active]; gabapentin 300 mg Oral cap twice a day [Active]; clopidogrel 75 mg oral tab 1 tab once daily [Active]; memantine 10mg Oral 1 cap 2 times per day [Active]; aspirin 81 mg Oral chew 1 tab once daily [Active]; - PMHx: 15:25 High Cholesterol; Hypertension; Polio; Schizophrenia; Alzheimer's disease; ld1 - PSHx: 15:25 Coronary artery bypass graft; Stented artery; ld1 - Immunization history:: Adult Immunizations up to date. - Social history:: Smoking status: Patient denies any tobacco usage or history of. ROS: 01/04 17:03 Constitutional: Negative for fever, chills, and weight loss, Eyes: Negative for injury, kdr pain, redness, and discharge, Neck: Negative for injury, pain, and swelling, Cardiovascular: Negative for chest pain, palpitations, and edema, Respiratory: Negative for shortness of breath, cough, wheezing, and pleuritic chest pain, Abdomen/GI: Negative for abdominal pain, nausea, vomiting, diarrhea, and constipation, Back: Negative for injury and pain, : Negative for injury, bleeding, discharge, and swelling, MS/Extremity: Negative for injury and deformity, Skin: Negative for injury, rash, and discoloration, Psych: Negative for depression, anxiety, suicide ideation, homicidal ideation, and hallucinations, Allergy/Immunology: Negative for hives, rash, and allergies, Endocrine: Negative for neck swelling, polydipsia, polyuria, polyphagia, and marked weight changes, Hematologic/Lymphatic: Negative for swollen nodes, abnormal bleeding, and unusual bruising. Neuro: Positive for altered mental status. Exam: 17:03 Constitutional: This is a well developed, well nourished patient who is awake, alert, kdr and in no acute distress. Head/Face: Normocephalic, atraumatic. Eyes: Pupils equal round and reactive to light, extra-ocular motions intact. Lids and lashes normal. Conjunctiva and sclera are non-icteric and not injected. Cornea within normal limits. Periorbital areas with no swelling, redness, or edema. Neck: Trachea midline, no thyromegaly or masses palpated, and no cervical lymphadenopathy. Supple, full range of motion without nuchal rigidity, or vertebral point tenderness. No Meningismus. Chest/axilla: Normal chest wall appearance and motion. Nontender with no deformity. No lesions are appreciated. Cardiovascular: Regular rate and rhythm with a normal S1 and S2. No gallops, murmurs, or rubs. Normal PMI, no JVD. No pulse deficits. Respiratory: Lungs have equal breath sounds bilaterally, clear to auscultation and percussion. No rales, rhonchi or wheezes noted. No increased work of breathing, no retractions or nasal flaring. Abdomen/GI: Soft, non-tender, with normal bowel sounds. No distension or tympany. No guarding or rebound. No evidence of tenderness throughout. Back: No spinal tenderness. No costovertebral tenderness. Full range of motion. Skin: Warm, dry with normal turgor. Normal color with no rashes, no lesions, and no evidence of cellulitis. MS/ Extremity: Pulses equal, no cyanosis. Neurovascular intact. Full, normal range of motion. Psych: Awake, alert, with orientation to person, place and time. Behavior, mood, and affect are within normal limits. 17:03 Neuro: Orientation: to person, place, Not oriented to time, situation, Mentation: able to follow commands, slow to respond, confused, Motor: moves all fours, Sensation: no obvious gross deficits. Vital Signs: 01/03 15:21 BP 141 / 73; Pulse 61; Resp 17; Temp 98.7(TE); Pulse Ox 96% on R/A; Weight 63.5 kg; ld1 Height 5 ft. 4 in. (162.56 cm); Pain 0/10; 19:09 BP 168 / 80; Pulse 58; Resp 19; Pulse Ox 100% on R/A; oh 20:57 BP 150 / 78; Pulse 60; Resp 17; Temp 98.2(O); Pulse Ox 100% on R/A; Pain 1/10; bc5 15:21 Body Mass Index 24.03 (63.50 kg, 162.56 cm) ld1 MDM: 19:37 Patient medically screened. kdr 01/04 17:03 Data reviewed: vital signs, nurses notes, lab test result(s), radiologic studies. kdr Counseling: I had a detailed discussion with the patient and/or guardian regarding: the historical points, exam findings, and any diagnostic results supporting the discharge/admit diagnosis, lab results, radiology results, the need for outpatient follow up. Physician consultation: Anant Muñiz MD and will see patient in office, would like further tests performed, CT scan. 01/03 16:42 Order name: Amylase, Serum kdr 01/03 16:42 Order name: Basic Metabolic Panel kdr 01/03 16:42 Order name: Blood Culture Adult (2) kdr 01/03 16:42 Order name: CBC with Diff kdr 01/03 16:42 Order name: CPK kdr 01/03 16:42 Order name: Ckmb; Complete Time: 19:17 kdr 01/03 16:42 Order name: LFT's; Complete Time: 19:17 kdr 01/03 16:42 Order name: Lactate; Complete Time: 17:41 kdr 01/03 16:42 Order name: Lipase; Complete Time: 19:17 kdr 01/03 16:42 Order name: Procalcitonin; Complete Time: 19:17 kdr 01/03 16:42 Order name: Protime (+inr); Complete Time: 17:41 kdr 01/03 16:42 Order name: Ptt, Activated; Complete Time: 17:41 [facility] 01/03 16:42 Order name: Troponin (emerg Dept Use Only); Complete Time: 19:17 [facility] 01/03 16:42 Order name: Urine Microscopic Only; Complete Time: 19:17 [facility] 01/03 16:42 Order name: Chest Single View XRAY; Complete Time: 17:41 [facility] 01/03 16:42 Order name: Accucheck; Complete Time: 19:24 [facility] 01/03 16:42 Order name: Cardiac monitoring; Complete Time: 16:47 [facility] 01/03 16:42 Order name: EKG - Nurse/Tech; Complete Time: 16:47 [facility] 01/03 16:42 Order name: IV Saline Lock - Large Bore; Complete Time: 16:47 [facility] 01/03 16:42 Order name: Labs collected and sent; Complete Time: 16:48 [facility] 01/03 16:42 Order name: O2 Per Protocol; Complete Time: 16:48 [facility] 01/03 16:42 Order name: O2 Sat Monitoring; Complete Time: 16:48 [facility] 01/03 16:43 Order name: Amylase; Complete Time: 19:17 [facility] 01/03 16:43 Order name: Basic Metabolic Panel; Complete Time: 19:17 [facility] 01/03 16:43 Order name: Blood Culture [facility] 01/03 16:43 Order name: CBC with Automated Diff; Complete Time: 17:41 [facility] 01/03 16:43 Order name: Creatine Phosphokinase; Complete Time: 19:17 [facility] 01/03 18:55 Order name: Urine Dipstick-Ancillary; Complete Time: 19:17 [facility] 01/03 18:57 Order name: Urine Culture [facility] 01/03 19:30 Order name: CT Head Brain wo Cont; Complete Time: 20:07 [facility] 01/03 16:42 Order name: Urine Dipstick-Ancillary (obtain specimen); Complete Time: 19:10 [facility] 01/03 17:20 Order name: Labs - recollect needed: recollect green top; Complete Time: 18:38 bd Administered Medications: No medications were administered Disposition Summary: 01/03/21 19:37 Discharge Ordered Location: Home kdr Problem: new kdr Symptoms: have improved kdr Condition: Stable kdr Diagnosis - Altered mental status, unspecified kdr Followup: kdr - With: Anant Muñiz MD - When: 1 - 2 days - Reason: If symptoms return, Further diagnostic work-up, Recheck today's complaints, Continuance of care, Re-evaluation by your physician Discharge Instructions: - Discharge Summary Sheet kdr - Confusion kdr Forms: - Medication Reconciliation Form kdr - Thank You Letter kdr Signatures: Dispatcher [employer] Nicol Orozco, Melissa Rivera Kevin, MD MD kdr Libertad Guerrero RN RN ld1
--- NOTE | 2021-01-03 20:05 | RAD REPORT ---
EXAM DESCRIPTION: CT - Head Brain Wo Cont - 01/03/2021 7:55 pm CLINICAL HISTORY: CONFUSED COMPARISON: Head Brain Wo Cont dated 07/26/2020; Head Brain Wo Cont dated 11/23/2018 TECHNIQUE: All CT scans are performed using dose optimization technique as appropriate and may inclu de automated exposure control or mA/KV adjustment according to patient size. FINDINGS: No intracranial hemorrhage, hydrocephalus or extra-axial fluid collection.No areas of brai n edema or evidence of midline shift. Cerebral atrophy. The paranasal sinuses and mastoids are clear. The calvarium is intact. IMPRESSION: No acute intracranial abnormality.
[2021-01-03 21:04] VITALS: O2SAT 100
[2021-01-03 21:05] VITALS: BP 150/78; TEMP 98.2
--- NOTE | 2021-01-04 16:39 | EKG ---
Test Date: 2021-01-03 Test Time: 16:15:34 Network Operations Manager: JUAN ANTONIO MEASUREMENT RESULTS: Intervals: Rate: 60 WV: 158 QRSD: 122 QT: 450 QTc: 450 [place]: P: 66 WV: 158 QRS: 57 T: 73 INTERPRETIVE STATEMENTS: Normal sinus rhythm with sinus arrhythmia Right bundle branch block Abnormal ECG Compared to ECG 07/26/2020 20:51:43 Right bundle-branch block now present Sinus bradycardia no longer present Ventricular premature complex(es) no longer present Incomplete right bundle-branch block no longer present Right ventricular hypertrophy no longer present Early repolarization no longer present Electronically Signed On 01-04-21 16:35:51 CDT by Dhiraj Ramos
== END 2021-01-03 20:58 | disposition home or self-care (01) ==
LOC: ER 15:19
DX: R41.82 Altered mental status, unspecified (principal); I10 Essential (primary) hypertension; E78.00 Pure hypercholesterolemia, unspecified; G30.9 Alzheimer's disease, unspecified; F02.80 Dementia in other diseases classified elsewhere, unspecified severity, without behavioral disturbance, psychotic disturbance, mood disturbance, and anxiety; Z79.82 Long term (current) use of aspirin; Z95.1 Presence of aortocoronary bypass graft; Z88.0 Allergy status to penicillin; Z88.5 Allergy status to narcotic agent; Z88.7 Allergy status to serum and vaccine; Z88.8 Allergy status to other drugs, medicaments and biological substances; Z91.048 Other nonmedicinal substance allergy status
CPT/HCPCS: 36415; 70450; 71045; 80048; 80076; 81003; 81015; 82150; 82550; 82553; 83605; 83690; 84145; 84484; 85025; 85610; 85730; 87040; 87086; 87088; 87205; 93005; 99284

== ENCOUNTER 2021-02-21 12:40 | Inpatient (IN) | payer OTHER ==
[2021-02-21] MEDS ORDERED: NA CHLORIDE 0.9% 500 ML ONE (13:19)
[2021-02-21] MEDS ORDERED: NA CHLORIDE 0.9% 1,000 ML ONE (13:19)
[2021-02-21] MEDS ORDERED: CEFTRIAXONE 1000 MG/VIAL ONE ×2 (13:19→22:41)
--- NOTE | 2021-02-21 13:46 | RAD REPORT ---
EXAM DESCRIPTION: CT - Stone Protocol - 02/21/2021 1:25 pm CLINICAL HISTORY: PAIN COMPARISON: Abdomen Pelvis Wo Contrast dated 10/25/2018; CT ABDOMEN PELVIS WO CONTRAST dated 10/03/19 14; CT ABDOMEN PELVIS WO CONTRAST dated 11/12/2011 TECHNIQUE: Axial 3 mm thick images were obtained without oral or IV contrast. The efibn-bs-ures span s the entirety of the system including uppermost abdomen and lung bases. Hyperdense material in th e colon is probably bismuth containing medication or similar material. There is no history of contras t enhanced study performed recently at an outside facility. All CT scans are performed using dose optimization technique as appropriate and may include automated exposure control or mA/KV adjustment according to patient size. FINDINGS: No hydronephrosis is present and no obstructing ureteral calculi. No suspicious renal mass es. Isodense masses and pyelonephritis are not excluded on a stone protocol CT scan. Left kidney show s some atrophy changes relative to the right and more lobulated contour. No abnormal perinephric stra nding. Bilateral renal arterial tree calcifications are present. No significant adrenal finding. Urin sharri bladder is mostly contracted. No gross evidence for bladder wall thickening or mass. No bladder s tones seen. Uterus is absent. Ovaries are absent or atrophic. Liver shows no acute finding. Hyperdense material is seen in the subcapsular dome of the right lobe s imilar to 2019. Splenic granulomatous type calcification present. Gallbladder is absent. No biliary t ree dilatation. There is an approximately 3 centimeter sized area of increased fullness to the pancreatic tail with s ubtle hyperdensity relative to the remaining pancreatic parenchyma. This is more prominent than on th e preceding 3 studies. There is a trace amount of stranding in the adjacent fat. Developing pancreati c mass is possible but is not fully assessed on this noncontrast study. Pancreatitis of the pancreati c tail is possible and needs correlation with lab findings and clinical presentation. Small hiatal hernia is present. No acute stomach finding. No acute small bowel abnormality identified . Moderately large stool volume is present filling but not dilating the colon. Fatty ileocecal valve is present. Appendix is not well defined. No appendicitis findings evident. Small inguinal hernias are present without acute component. There is a small hernia in the posteromed ial right hemidiaphragm No mass or bulky lymphadenopathy. No free air, free fluid or pneumatosis. Disc and bone degenerative changes are present. No acute or pathologic bone process identified. Dense arterial tree calcifications are present. Lung base fibrotic stranding is present with minimal pleural thickening. No acute lung base finding. No cardiomegaly or pericardial effusion. IMPRESSION: No hydronephrosis, obstructing calculus or acute finding. Isodense masses and pyelonephritis are not excluded on stone protocol technique.No abnormality on thi s noncontrast study to explain dysuria. Approximately 3 centimeter sized area of increased fullness of the pancreatic tail is present compare d to prior imaging. There is a trace amount of stranding in the case. The increased fullness is new f rom prior CT imaging. Possibility of a pancreatic mass cannot be excluded on this noncontrast study. Fullness in stranding could be caused by a pancreatitis as well and needs correlation with lab and clinical findings.
--- NOTE | 2021-02-21 14:01 | RAD REPORT ---
EXAM DESCRIPTION: RAD - Chest Single View - 02/21/2021 1:20 pm CLINICAL HISTORY: COUGH COMPARISON: January 03 TECHNIQUE: AP portable chest image was obtained 02/21/2021 1:20 pm . FINDINGS: No acute infiltrate or mass. Mildly prominent interstitial pattern matches comparison. Charan rnotomy wires are again noted. Heart and vasculature are normal. No measurable pleural effusion and n o pneumothorax. No acute bony abnormality seen. No acute aortic findings suspected. IMPRESSION: No acute cardiopulmonary process. No significant change from comparison study.
--- NOTE | 2021-02-21 14:25 | ER ---
Nurse's Notes [facility] Name: Silvestre Damico Age: 89 yrs Sex: Female : 1930 Arrival Date: 02/21/2021 Time: 12:44 Bed 20 Private MD: Diagnosis: Weakness;Dehydration;Dysuria;Alzheimer's disease, unspecified Presentation: 02/21 12:39 Chief complaint: Patient states: DYSURIA, URGENCY, DIFFICULTY URINATING: Portillo presents sl2 to ED with c/o difficulty urinating X 2 days - states burning when she attempts to urinate, has pressure and urgency but produces very little urine. Coronavirus screen: Vaccine status: Patient reports receiving the 2nd dose of the covid vaccine. Ebola Screen: Patient negative for fever greater than or equal to 101.5 degrees Fahrenheit, and additional compatible Ebola Virus Disease symptoms Patient denies exposure to infectious person. Patient denies travel to an Ebola-affected area in the 21 days before illness onset. No symptoms or risks identified at this time. 12:39 Method Of Arrival: EMS: [facility] 2 12:39 Coronavirus screen: Vaccine status: Patient reports being unvaccinated. Initial Sepsis sl2 Screen: Does the patient meet any 2 criteria? No. Patient's initial sepsis screen is negative. Does the patient have a suspected source of infection? No. Patient's initial sepsis screen is negative. Risk Assessment: Do you want to hurt yourself or someone else? Patient reports no desire to harm self or others. Onset of symptoms was February 20, 2021. 12:39 Acuity: SUPRIYA 2 sl2 Triage Assessment: 12:51 General: Appears uncomfortable, well developed, Behavior is quiet. Pain: Complains of sl2 pain in back Pain does not radiate. Pain currently is 5 out of 10 on a pain scale. Quality of pain is described as burning, aching. Historical: - Allergies: 12:51 Codeine; sl2 12:51 Demerol; sl2 12:51 FLU VACCINE; sl2 12:51 Iodine; sl2 12:51 PENICILLINS; sl2 - PMHx: 12:51 Alzheimer's disease; High Cholesterol; Hypertension; Polio; Schizophrenia; sl2 - PSHx: 12:51 Coronary artery bypass graft; Stented artery; sl2 - Immunization history:: Adult Immunizations up to date, Client reports having NOT received the Covid vaccine. - Social history:: Smoking status: unknown. - Family history:: not pertinent. Screenin:02 Abuse screen: Denies threats or abuse. Denies injuries from another. 2 13:02 Nutritional screening: No deficits noted. Tuberculosis screening: No symptoms or risk sl2 factors identified. Fall Risk None identified. Assessment: 20:00 General: Appears in no apparent distress. comfortable, Behavior is calm, cooperative. 5 Neuro: Level of Consciousness is awake, confused, Oriented to person, place. Cardiovascular: Rhythm is sinus bradycardia. Respiratory: Airway is patent Trachea midline Respiratory effort is even, unlabored. : Ricketts in place Reports burning with urination, inability to void. 21:00 Reassessment: No changes from previously documented assessment. 5 22:00 Reassessment: No changes from previously documented assessment. 5 Vital Signs: 12:39 BP 140 / 68; Pulse 80; Resp 18; Pulse Ox 98% on R/A; sl2 12:56 BP 173 / 53; Pulse 66; Resp 18; Temp 97.9; Pulse Ox 100% ; sl2 14:00 BP 155 / 52; Pulse 60; Resp 18; Temp 97.9; Pulse Ox 100% on R/A; sl2 15:45 BP 163 / 62; Pulse 61; Resp 18; Temp 98.2; Pulse Ox 100% on R/A; sl2 20:00 BP 146 / 53; Pulse 62; Resp 18; Pulse Ox 94% ; sm5 21:47 BP 127 / 60; Pulse 61; Resp 17; Pulse Ox 94% on R/A; 5 ED Course: 12:44 Patient arrived in ED. sl2 12:45 Tamia Chilel, COREY is Primary Nurse. sl2 12:51 Triage completed. sl2 12:51 Arm band placed on. sl2 12:53 Anmol Mancia MD is Attending Physician. [facility] 12:58 Patient has correct armband on for positive identification. Placed in gown. Bed in low 5 position. Call light in reach. Side rails up X2. Adult w/ patient. Warm blanket given. Pillow given. panel monitor on. Pulse ox on. NIBP on. 13:00 EKG done, by ED staff, reviewed by Anmol Mancia MD. [facility] 13:20 XRAY Chest (1 view) In Process Unspecified. EDMS 13:25 CT Stone Protocol In Process Unspecified. EDAL 14:24 Anant Muñiz MD is Hospitalizing Provider. [facility] 14:34 Ricketts cath inserted, using sterile technique, 16 Fr., by oh, balloon inflated, urine [facility] specimen collected. 14:42 Liver (Hepatic) Function Sent. [facility] 14:43 CBC with Automated Diff Sent. [facility] 14:43 Basic Metabolic Panel Sent. [facility] 14:43 Lipase Sent. [facility] 14:43 Urine Culture Sent. [facility] 14:43 Basic Metabolic Panel Sent. [facility] 14:43 CBC with Diff Sent. [facility] 14:43 LFT's Sent. [facility] 14:43 Magnesium Sent. [facility] 14:43 NT PRO-BNP Sent. [facility] 14:43 PT-INR Sent. [facility] 14:43 Troponin (emerg Dept Use Only) Sent. [facility] 15:55 No provider procedures requiring assistance completed. 2 19:22 COVID-19 SARS RT PCR (Document "Date of Onset" if Symptomatic) Sent. [facility] 22:09 Patient admitted, IV remains in place. [facility] Administered Medications: 13:25 Drug: NS 0.9% 500 ml Route: IV; Rate: bolus; Site: right antecubital; 2 14:10 Follow up: IV Status: Completed infusion; IV Intake: 500ml 2 13:25 Drug: Rocephin (cefTRIAXone) 1 grams Route: IV; Rate: per protocol; Site: right sl2 antecubital; 14:48 Follow up: Response: No adverse reaction; IV Status: Completed infusion; IV Intake: [id number] 14:00 Drug: NS 0.9% 1000 ml Route: IV; Rate: 125 ml/hr; Site: right antecubital; sl2 14:50 Follow up: Response: No adverse reaction; IV Status: Infusion continued sl2 Intake: 14:10 IV: 500ml; Total: 500ml. sl2 14:48 IV: 10ml; Total: 510ml. sl2 Outcome: 14:25 Decision to Hospitalize by Provider. amy 22:09 Admitted to Med/surg accompanied by tech, via stretcher, with chart, Report called to [facility] Daiana NICOLE 22:09 Condition: stable 22:09 Instructed on the need for admit. 22:10 Patient left the ED. sm5 Signatures: Dispatcher [employer] Anmol Watson MD MD cha Martinez, Maria 5 Tamia Chilel RN RN sl2 Yanna Sethi RN RN sm5 Corrections: (The following items were deleted from the chart) 13:02 12:56 BP 173 / 53; Pulse 66bpm; Resp 18bpm; Pulse Ox 100%; sl2 2
--- NOTE | 2021-02-21 14:26 | EDPHYS ---
Physician Documentation [facility] Name: Silvestre Damico Age: 89 yrs Sex: Female : 1930 Arrival Date: 02/21/2021 Time: 12:44 Bed 20 Private MD: ED Physician Anmol Mancia HPI: 02/21 14:19 This 89 yrs old Female presents to ER via EMS with complaints of dysuria, amy back pain and weakness. 14:19 The patient presents with abdominal pain in the lower abdomen. Onset: The amy symptoms/episode began/occurred 3 day(s) ago. The patient presents with pain and decreased range of motion. The symptoms are located in the low back. Onset: The symptoms/episode began/occurred 3 day(s) ago. The pain does not radiate. Associated signs and symptoms: The patient has no apparent associated signs or symptoms. The problem was sustained from unknown cause. Modifying factors: The patient symptoms are alleviated by nothing, the patient symptoms are aggravated by any movement, nothing. Severity of symptoms: At their worst the symptoms were mild, moderate, in the emergency department the symptoms are unchanged. Historical: - Allergies: 12:51 Codeine; sl2 12:51 Demerol; sl2 12:51 FLU VACCINE; sl2 12:51 Iodine; sl2 12:51 PENICILLINS; sl2 - PMHx: 12:51 Alzheimer's disease; High Cholesterol; Hypertension; Polio; Schizophrenia; sl2 - PSHx: 12:51 Coronary artery bypass graft; Stented artery; sl2 - Immunization history:: Adult Immunizations up to date, Client reports having NOT received the Covid vaccine. - Social history:: Smoking status: unknown. - Family history:: not pertinent. ROS: 14:19 Constitutional: Negative for fever, chills, and weight loss, Eyes: Negative for injury, amy pain, redness, and discharge, ENT: Negative for injury, pain, and discharge, Neck: Negative for injury, pain, and swelling, Cardiovascular: Negative for chest pain, palpitations, and edema, Respiratory: Negative for shortness of breath, cough, wheezing, and pleuritic chest pain, MS/Extremity: Negative for injury and deformity, Skin: Negative for injury, rash, and discoloration, Neuro: Negative for headache, weakness, numbness, tingling, and seizure, Psych: Negative for depression, anxiety, suicide ideation, homicidal ideation, and hallucinations, Allergy/Immunology: Negative for hives, rash, and allergies, Endocrine: Negative for neck swelling, polydipsia, polyuria, polyphagia, and marked weight changes, Hematologic/Lymphatic: Negative for swollen nodes, abnormal bleeding, and unusual bruising. 14:19 Abdomen/GI: Positive for abdominal pain, abdominal cramps, of the posterior aspect of right lateral abdomen, posterior aspect of left lateral abdomen, right lower quadrant and left lower quadrant. 14:19 Back: Positive for of the lumbar area. 14:19 : Positive for pelvic pain, urinary frequency, small amounts, hematuria, burning with urination, difficulty urinating, foul smelling urine. Exam: 14:19 Constitutional: This is a well developed, well nourished patient who is awake, alert, amy and in no acute distress. Head/Face: Normocephalic, atraumatic. Eyes: Pupils equal round and reactive to light, extra-ocular motions intact. Lids and lashes normal. Conjunctiva and sclera are non-icteric and not injected. Cornea within normal limits. Periorbital areas with no swelling, redness, or edema. ENT: Nares patent. No nasal discharge, no septal abnormalities noted. Tympanic membranes are normal and external auditory canals are clear. Oropharynx with no redness, swelling, or masses, exudates, or evidence of obstruction, uvula midline. Mucous membranes moist. Neck: Trachea midline, no thyromegaly or masses palpated, and no cervical lymphadenopathy. Supple, full range of motion without nuchal rigidity, or vertebral point tenderness. No Meningismus. Chest/axilla: Normal chest wall appearance and motion. Nontender with no deformity. No lesions are appreciated. Cardiovascular: Regular rate and rhythm with a normal S1 and S2. No gallops, murmurs, or rubs. Normal PMI, no JVD. No pulse deficits. Respiratory: Lungs have equal breath sounds bilaterally, clear to auscultation and percussion. No rales, rhonchi or wheezes noted. No increased work of breathing, no retractions or nasal flaring. Abdomen/GI: Soft, non-tender, with normal bowel sounds. No distension or tympany. No guarding or rebound. No evidence of tenderness throughout. Female : Normal external genitalia. Skin: Warm, dry with normal turgor. Normal color with no rashes, no lesions, and no evidence of cellulitis. MS/ Extremity: Pulses equal, no cyanosis. Neurovascular intact. Full, normal range of motion. Psych: Awake, alert, with orientation to person, place and time. Behavior, mood, and affect are within normal limits. 14:19 ECG was reviewed by the Attending Physician. 14:19 Back: ROM is normal, normal spinal alignment noted, CVA tenderness, is absent, vertebral tenderness, is not appreciated, muscle spasm, is not present. 14:19 : CVA tenderness, is absent. Vital Signs: 12:39 BP 140 / 68; Pulse 80; Resp 18; Pulse Ox 98% on R/A; sl2 12:56 BP 173 / 53; Pulse 66; Resp 18; Temp 97.9; Pulse Ox 100% ; sl2 14:00 BP 155 / 52; Pulse 60; Resp 18; Temp 97.9; Pulse Ox 100% on R/A; sl2 15:45 BP 163 / 62; Pulse 61; Resp 18; Temp 98.2; Pulse Ox 100% on R/A; sl2 20:00 BP 146 / 53; Pulse 62; Resp 18; Pulse Ox 94% ; sm5 21:47 BP 127 / 60; Pulse 61; Resp 17; Pulse Ox 94% on R/A; sm5 MDM: 12:53 Patient medically screened. amy 14:23 Differential diagnosis: Pyelonephritis ruptured disc, sprain, Ureterolithiasis bowel amy obstruction, diverticulitis, gastritis, Mesenteric ischemia or infarction, pancreatitis, Peptic Ulcer Disease. Data reviewed: vital signs, nurses notes, lab test result(s), EKG, radiologic studies, CT scan, plain films. Data interpreted: ekg monitor: rate is 66 beats/min, rhythm is regular, Pulse oximetry: on room air is 100 %. Test interpretation: by ED physician or midlevel provider: ECG, plain radiologic studies. Counseling: I had a detailed discussion with the patient and/or guardian regarding: the historical points, exam findings, and any diagnostic results supporting the discharge/admit diagnosis, lab results, radiology results, the need for further work-up and treatment in the hospital. 02/21 12:55 Order name: Basic Metabolic Panel amy 02/21 12:55 Order name: CBC with Diff [facility] 02/21 12:55 Order name: LFT's [facility] 02/21 12:55 Order name: Magnesium; Complete Time: 15:46 [facility] 02/21 12:55 Order name: NT PRO-BNP; Complete Time: 15:46 [facility] 02/21 12:55 Order name: PT-INR; Complete Time: 15:46 [facility] 02/21 12:55 Order name: Troponin (emerg Dept Use Only); Complete Time: 15:46 [facility] 02/21 12:55 Order name: Urine Culture [facility] 02/21 12:55 Order name: Lipase; Complete Time: 15:46 [facility] 02/21 12:56 Order name: Basic Metabolic Panel; Complete Time: 15:46 [facility] 02/21 12:56 Order name: CBC with Automated Diff; Complete Time: 15:46 [facility] 02/21 12:56 Order name: Liver (Hepatic) Function; Complete Time: 15:46 [facility] 02/21 14:32 Order name: Urine Dipstick-Ancillary; Complete Time: 15:01 [facility] 02/21 16:32 Order name: COVID-19 SARS RT PCR (Document "Date of Onset" if Symptomatic) 02/21 12:55 Order name: XRAY Chest (1 view); Complete Time: 14:09 [facility] 02/21 12:55 Order name: EKG; Complete Time: 12:56 [facility] 02/21 12:55 Order name: Cardiac monitoring; Complete Time: 12:58 [facility] 02/21 12:55 Order name: EKG - Nurse/Tech; Complete Time: 12:59 [facility] 02/21 12:55 Order name: IV Saline Lock; Complete Time: 14:43 [facility] 02/21 12:55 Order name: Labs collected and sent; Complete Time: 14:43 [facility] 02/21 12:55 Order name: O2 Per Protocol; Complete Time: 14:43 [facility] 02/21 12:55 Order name: O2 Sat Monitoring; Complete Time: 14:43 [facility] 02/21 12:55 Order name: Urine Dipstick-Ancillary (obtain specimen); Complete Time: 14:43 [facility] 02/21 12:55 Order name: CT Stone Protocol; Complete Time: 14:09 [facility] 02/21 17:56 Order name: Diet Regular; Complete Time: 17:56 02/21 18:46 Order name: SARS-COV-2 RT PCR [facility] 02/21 14:30 Order name: Jamarcus; Complete Time: 14:42 amy EC:19 Rate is 61 beats/min. Rhythm is regular. QRS [place] is Normal. PA interval is normal. QRS amy interval is normal. QT interval is normal. No Q waves. T waves are Normal. No ST changes noted. Clinical impression: NSR w/ Non-specific ST/T Changes and No evidence of ischemia. Interpreted by me. Reviewed by me. Administered Medications: 13:25 Drug: NS 0.9% 500 ml Route: IV; Rate: bolus; Site: right antecubital; sl2 14:10 Follow up: IV Status: Completed infusion; IV Intake: 500ml sl2 13:25 Drug: Rocephin (cefTRIAXone) 1 grams Route: IV; Rate: per protocol; Site: right sl2 antecubital; 14:48 Follow up: Response: No adverse reaction; IV Status: Completed infusion; IV Intake: [id number] 14:00 Drug: NS 0.9% 1000 ml Route: IV; Rate: 125 ml/hr; Site: right antecubital; sl2 14:50 Follow up: Response: No adverse reaction; IV Status: Infusion continued sl2 Disposition Summary: 02/21/21 14:25 Hospitalization Ordered Hospitalization Status: Inpatient Admission amy Provider: Anant Muñiz cha Location: Telemetry/MedSurg (Inpatient) amy Condition: Fair amy Problem: new amy Symptoms: have improved amy Bed/Room Type: Standard amy Room Assignment: 212(02/21/21 19:36) cg Diagnosis - Weakness amy - Dehydration amy - Dysuria amy - Alzheimer's disease, unspecified amy Forms: - Medication Reconciliation Form amy - SBAR form amy Signatures: Dispatcher [employer] [facility] Anmol Mancia MD MD cha Garcia, Cindy, RN RN Tamia Chilel RN RN sl2 Corrections: (The following items were deleted from the chart) 19:36 14:25 amy cg
[2021-02-21 14:32] LABS: Urine Blood Trace-intact (Negative); Urine Glucose Negative (Negative); Urine Protein 1+ (Negative); Urine Specific Gravity >=1.030 (1.005-1.030); Urine pH 5.5 (5.0-7.0)
[2021-02-21 14:59] LABS: Protime INR 1.14
[2021-02-21 15:08] LABS: Absolute Lymphocytes (CBC) 1.2 K/uL (0.7-4.9); Basophils % 0.4 % (0-1.3); Hematocrit 34.3 % (36.0-45.0); Lymphocytes % 10.5 % (15.3-44.8); MPV 8.5 fL (7.6-11.3); RBC Red Blood Cell Count 3.74 M/uL (3.86-4.86)
[2021-02-21 15:16] LABS: ALT/SGPT 13 U/L (12-78); AST/SGOT 15 U/L (15-37); Albumin 2.9 g/dL (3.4-5.0); Alkaline Phosphatase 81 U/L (45-117); BUN Blood Urea Nitrogen 19 mg/dL (7-18); Bicarbonate 26 mmol/L (21-32); Bilirubin Direct 0.2 mg/dL (0-0.2); Bilirubin Total 0.6 mg/dL (0.2-1.0); Glucose Level 115 mg/dL (74-106); Lipase 102 U/L (73-393); Magnesium 2.3 mg/dL (1.8-2.4); NT PRO-BNP 1966 pg/mL (<450); Potassium 3.7 mmol/L (3.5-5.1); Protein, Total 6.8 g/dL (6.4-8.2); Sodium Level 134 mmol/L (136-145); Troponin (Emerg Dept Use Only) < 0.02 ng/mL (0.0-0.045)
[2021-02-21] MEDS ORDERED: ONDANSETRON 4 MG/2 ML VIAL IV PRN (21:08)
[2021-02-21] MEDS ORDERED: ACETAMINOPHEN 325 MG TABLET PO PRN (21:19)
[2021-02-21] MEDS ORDERED: MORPHINE 2 MG/ML SYR IV PRN (21:29)
[2021-02-21] MEDS ORDERED: NA CHLORIDE 0.9% 50 ML ONE (22:41)
[2021-02-21] MEDS: CEFTRIAXONE 1,000 MG in NA CHLORIDE 0.9% 50 ML IVPB SCH (22:47)
[2021-02-21] MEDS: D5 0.45 NS 1,000 ML IV SCH (22:48)
[2021-02-21] MEDS: FAMOTIDINE 20 MG/2 ML VIAL IV SCH (22:48)
[2021-02-21 23:15] VITALS: O2SAT 94
[2021-02-21 23:25] VITALS: BMI 25.1
[2021-02-22 04:14] LABS: Absolute Lymphocytes (CBC) 2.2 K/uL (0.7-4.9); Basophils % 0.6 % (0-1.3); Hematocrit 31.1 % (36.0-45.0); Lymphocytes % 31.8 % (15.3-44.8); MPV 8.7 fL (7.6-11.3); RBC Red Blood Cell Count 3.37 M/uL (3.86-4.86)
[2021-02-22 04:45] LABS: ALT/SGPT 10 U/L (12-78); AST/SGOT 11 U/L (15-37); Albumin 2.3 g/dL (3.4-5.0); Alkaline Phosphatase 63 U/L (45-117); BUN Blood Urea Nitrogen 17 mg/dL (7-18); Bicarbonate 28 mmol/L (21-32); Bilirubin Direct < 0.1 mg/dL (0-0.2); Bilirubin Total 0.2 mg/dL (0.2-1.0); Glucose Level 146 mg/dL (74-106); Lipase 109 U/L (73-393); Potassium 3.9 mmol/L (3.5-5.1); Protein, Total 5.7 g/dL (6.4-8.2); Sodium Level 140 mmol/L (136-145)
[2021-02-22] MEDS: D5 0.45 NS 1,000 ML IV SCH ×2 (04:59→07:57)
[2021-02-22] MEDS ORDERED: CEFTRIAXONE 1000 MG/VIAL ONE (07:25)
[2021-02-22] MEDS ORDERED: NA CHLORIDE 0.9% 50 ML ONE (07:36)
[2021-02-22] MEDS: FAMOTIDINE 20 MG/2 ML VIAL IV SCH ×2 (07:58→20:32)
[2021-02-22] MEDS: CEFTRIAXONE 1,000 MG in NA CHLORIDE 0.9% 50 ML IVPB SCH ×2 (09:00→20:32)
[2021-02-22] MEDS ORDERED: LORazepam 2 MG/ML VIAL IV ONE (13:47)
[2021-02-22] MEDS ORDERED: HALOPERIDOL LACT 5 MG/ML INJ IV ONE (15:41)
--- NOTE | 2021-02-22 16:23 | EKG ---
Test Date: 2021-02-21 Test Time: 13:47:24 Slider Assembler: SANDRINE MEASUREMENT RESULTS: Intervals: Rate: 61 NM: 146 QRSD: 116 QT: 446 QTc: 448 Bruning: P: 64 NM: 146 QRS: 68 T: 45 INTERPRETIVE STATEMENTS: Normal sinus rhythm Right bundle branch block Abnormal ECG Compared to ECG 01/03/2021 16:15:34 Sinus arrhythmia no longer present Electronically Signed On 02-22-21 16:22:08 CODING CONSULTANT by Dhiraj Ramos
[2021-02-22] MEDS ORDERED: HALOPERIDOL LACT 5 MG/ML INJ IM PRN (20:08)
[2021-02-22] MEDS ORDERED: QUETIAPINE 25 MG TAB PO ONE (21:00)
[2021-02-23] MEDS: D5 0.45 NS 1,000 ML IV SCH ×2 (01:08→17:48)
--- NOTE | 2021-02-23 06:39 | HP ---
Date of Admission: 02/22/2021 Chief Complaint: Trouble urinating. History Of Present Illness: This is an 89-year-old female patient, who lives at home and was brought into emergency room with above-mentioned complaints. After she was evaluated in ER, she was admitted to the hospital with urinary tract infection problem. When I saw her this morning, she was obviously confused. She thought she had gone out of town and she got lost and she was coming back and did not report anything about her urinary complaints at all. No agitation noted. No nausea. No vomiting. No abdominal pain. Medications: At home she takes Eliquis 2.5 mg 2 times a day, gabapentin 300 mg 2 times a day, losartan 25 mg daily, memantine 5 mg 2 times a day, metoprolol succinate 25 mg daily, pantoprazole 40 mg daily, primidone 50 mg daily. Review of Systems: : As mentioned above. All other systems reviewed and negative. Allergies: TO IODINE, TRAMADOL, DEMEROL. Past Medical History: Significant for meningioma, history of polio, thyroid nodule, hypertension, mixed hyperlipidemia, coronary artery disease, atherosclerosis of celiac artery, superior mesenteric artery, carotid artery stenosis, bilateral chronic kidney disease stage 3B, osteoarthritis at multiple sites, and scoliosis, paroxysmal atrial fibrillation. 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 Family History: Father, hypertension. Social History: Positive for smoking. Use of alcohol, negative. Physical Examination: Vital Signs: Last temperature 98.5, previous temperature was 99.1, pulse 55, respiratory rate 16, blood pressure 120/66, oxygen saturation 96%. Height 5 feet 3 inches, weight 141 pounds. General: Awake, alert, oriented, not in distress. HEENT: Head atraumatic, normocephalic. Conjunctivae nonerythematous. Sclerae white. Mouth, no thrush or edema noted. Ears/Nose, no mass, lesion, discharge noted. Neck: Supple. No JVD, lymph nodes, bruit, thyromegaly noted. Lungs: Bilateral good equal air entry. Clear to auscultation. No rhonchi. No rales. Heart: Normal heart sounds, no murmur or gallop. Abdomen: Soft, bowel sounds normal. No guarding, rigidity, tenderness, mass, hepatosplenomegaly, distention, or bruit noted. Extremities: No leg edema. No calf tenderness. Skin: No rash, ulcer, cellulitis. Lymphatics: No lymph node enlargement in neck, supraclavicular, infraclavicular region. Neuro: No focal neurological deficit. Chest: Unremarkable. External Genitalia: Deferred. Rectal: Deferred. Laboratory Data: Yesterday; white count 11.4, hemoglobin 11.7, and a platelet count 244. Today; white count 6.8, hemoglobin 10.6, platelets 222. INR 1.14. Yesterday; sodium 134, potassium 3.7, chloride 99, bicarb 26, BUN 19, creatinine 1.22, EGFR 42, glucose 115. Liver function tests unremarkable. Troponin less than 0.02. Lipase 102. This morning; sodium 140, potassium 3.9, chloride 107, bicarb 28, BUN 17, creatinine 1.11, glucose 146, EGFR 46. Liver function tests unremarkable. Lipase 101. Urinalysis; 2+ ketones, leukocyte esterase trace, nitrite negative, blood trace, 1+ protein. COVID-19 test negative. CAT scan of the abdomen per kidney stone protocol shows no evidence of any hydronephrosis or obstructing kidney stone, presence of approximately 3 cm size area of increased fullness in the pancreatic tail and we need to rule out any possibility of pancreatic mass. Chest x-ray, no acute cardiopulmonary changes. Impression: 1. Urinary tract infection. 2. Toxic encephalopathy. 3. Dementia. 4. Chronic kidney disease, stage 3B. 5. Hypertension. 6. Hyperlipidemia. 7. Paroxysmal atrial fibrillation. 8. Chronic anticoagulation therapy. 9. Coronary artery disease. 10. Carotid artery stenosis, bilateral. 11. Osteoarthritis, multiple sites. Plan: We will go ahead and admit the patient to hospital for further evaluation and management of this problem. The patient is appropriate for inpatient and is expected to spend 2 midnights in hospital. We will continue home medications per order. Physical Therapy will be consulted to help ambulate the patient. Fall precaution was ordered. We will go ahead and order an MRI of abdomen with contrast to look at abnormality in the pancreas and during the course of day, nurse contacted me prior to MRI requesting some medications prior to MRI because of the patient's anxiety and claustrophobia type of problems, so Ativan was ordered. Unfortunately, that did not work for the patient and in fact, the patient had more increased agitation and she started pulling out her Ricketts catheter, IVs, etc. and Haldol was ordered subsequently. The patient was not able to get MRI done because she was not cooperative today. We will continue current empiric antibiotics. IV fluid will be continued, but we will reduce rate and I will see her tomorrow for followup. We will follow up on urine culture. Depending on the urine culture results, we will decide about possible discharge to go home with appropriate oral antibiotics. MELLISA/MODL Voice ID: [id number] MTDD
[2021-02-23] MEDS: CEFTRIAXONE 1,000 MG in NA CHLORIDE 0.9% 50 ML IVPB SCH ×2 (07:54→17:48)
[2021-02-23] MEDS: LOSARTAN POTASSIUM 50 MG TABLET PO SCH (08:03)
[2021-02-23] MEDS: APIXABAN 2.5 MG TABLET PO SCH ×2 (08:03→21:21)
[2021-02-23] MEDS: PANTOPRAZOLE 40MG TABLET PO SCH (08:03)
[2021-02-23] MEDS: METOPROLOL XL 25 MG TAB PO SCH (08:04)
[2021-02-23] MEDS: MEMANTINE HCL 10 MG TABLET PO SCH ×2 (08:04→21:20)
[2021-02-23] MEDS: GABAPENTIN 300 MG CAP PO SCH ×2 (08:04→21:20)
[2021-02-23] MEDS ORDERED: DIAZEPAM 5 MG TABLET PO ONE (10:20)
[2021-02-23] MEDS ORDERED: CEFTRIAXONE 1000 MG/VIAL ONE (17:44)
[2021-02-23] MEDS ORDERED: QUETIAPINE 25 MG TAB PO SCH (21:00)
[2021-02-23] MEDS: NITROFURAN MACRO 100 MG CAP PO SCH (21:18)
--- NOTE | 2021-02-23 21:57 | PN ---
Date of Progress Note: 02/23/2021 Subjective: The patient was seen this morning for followup. She was lying in bed, not in distress. Did not sleep well last night. She did receive Seroquel 25 mg p.o. x1 dose last night, but it did n ot help much. This morning when I saw her, she was calm, but yesterday she pulled out IV access mult iple times. She pulled out her Ricketts catheter. After pulling out her IV access 4 different times, raul brito decided not to restart her IV. Objective: Vital Signs: Reviewed. HEENT: Examination unremarkable. Lungs: Clear to auscultation. Heart: Sounds normal. Abdomen: Soft. Bowel sounds normal. No guarding, rigidity, tenderness, or distention. Extremities: No leg edema. Laboratory Data: Urine culture results came back negative. Impression: 1.Urinary tract infection. 2.Dementia. 3.Hypertension. 4.Rule out pancreatic mass. Plan: This morning after I saw her, I did call her daughter and discussed details with her regarding CAT scan finding. Yesterday, we were not able to do MRI because patient was not cooperative even af ter giving sedative medication. She was not able to go through MRI so today we did try to do MRI aga in after giving her Valium 5 mg p.o. x1 dose and we were able to do MRI today and result is pending. I did communicate with the patient's daughter this morning and informed her about my concern on the CAT scan. The patient's daughter tells me that it is difficult for her to provide care at home and michael gallego's condition now has deteriorated to the extent that the family is not able to provide care at home and she will need to go to longterm. There is a risk of wandering outside, so I did talk to the patient's daughter and advised her that she should consider getting her into the facility where they might have a locked unit for example [facility] has such facility and Social Service was consulted to assist the patient and family with longterm placement. We will give oral antib iotics per order and continue Seroquel at bedtime and I will see her tomorrow for followup. MELLISA/MODL Voice ID: [id number] Report ID: [id number]
--- NOTE | 2021-02-24 07:57 | RAD REPORT ---
EXAM DESCRIPTION: MRI - Abdomen WWo Cont - 02/23/2021 3:39 pm CLINICAL HISTORY: rule out pancreatic mass COMPARISON: MRAABDOMEN W WO CONTRAST dated 10/03/2011; Stone Protocol dated 02/21/2021; Abdomen Pel vis Wo Contrast dated 10/25/2018 FINDINGS: Suboptimal examination due to motion. No suspicious liver masses are identified. Mild intrahepatic biliary ductal dilatation is present. Th is may be related to the postcholecystectomy state. Heterogeneity noted at the pancreatic tail on both T1 and T2. The pancreas at this location is not as quite T1 hyperintense on precontrast sequence. Within the surrounding fat, there is haziness on T1 a nd T2. A discrete mass is not identified. The pancreatic duct is not dilated. 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 This is of doubtful clinical significance. Grossly, no adrenal mass identified. The spleen is normal in size. No suspicious renal lesions are id entified. Left renal atrophy and scarring. No retroperitoneal lymphadenopathy. A small hiatal hernia is present. IMPRESSION: No discrete mass identified at the pancreatic tail though moderately limited due to rafi on. Consider six-month follow-up pancreatic protocol CT or MRI.
[2021-02-24] MEDS: METOPROLOL XL 25 MG TAB PO SCH (08:43)
[2021-02-24] MEDS: APIXABAN 2.5 MG TABLET PO SCH (08:43)
[2021-02-24] MEDS: MEMANTINE HCL 10 MG TABLET PO SCH (08:43)
[2021-02-24] MEDS: NITROFURAN MACRO 100 MG CAP PO SCH (08:44)
[2021-02-24] MEDS: LOSARTAN POTASSIUM 50 MG TABLET PO SCH (08:44)
[2021-02-24] MEDS: GABAPENTIN 300 MG CAP PO SCH (08:44)
[2021-02-24] MEDS: PANTOPRAZOLE 40MG TABLET PO SCH (08:45)
--- NOTE | 2021-02-24 10:42 | PN ---
Date of Progress Note: 02/24/2021 Subjective: The patient was seen this morning for followup. She was lying in bed, not in distress. Denies any new complaints except reported that she needs to be changed as she had incontinence episo de. No chest pain. No shortness of breath. Objective: Vital Signs: Reviewed. HEENT: Examination unremarkable. Lungs: Clear to auscultation. Heart: Sounds normal. Abdomen: Soft. Bowel sounds normal. No guarding, rigidity, tenderness, distention. Extremities: No leg edema. Neuro: The patient has generalized weakness, and she is able to raise both lower extremity very mini rosio against gravity. No focal neurological deficits. Laboratory Data: Urine culture negative. MRI of abdomen done yesterday, result pending. Impression: 1.Urinary tract infection. 2.Toxic encephalopathy. 3.Dementia. 4.Generalized weakness. 5.Debility. Plan: We will go ahead and continue current medications. Continue nitrofurantoin. Seroquel was sta rted at 25 mg at night time for last 2 nights. We will continue that. Social Service is working on senior living placement. As soon as arrangements gets completed, we will be able to discharge her to go to senior living. The patient is medically stable for discharge. MELLISA/MODL Voice ID: [id number] Report ID: [id number]
[2021-02-24] MEDS: D5 0.45 NS 1,000 ML IV SCH (13:57)
[2021-02-24 16:50] VITALS: TEMP 97.9
[2021-02-24] MEDS ORDERED: AMLODIPINE 5 MG TAB PO STA (17:03)
[2021-02-24 17:49] VITALS: BP 148/84
--- NOTE | 2021-02-26 21:41 | DS ---
Date of Discharge: 02/24/2021 Disposition: Discharged to go [facility]. Physical Examination: See copy of today's progress note for more details. Discharge Medications And Instructions: See copy of discharge order for details. Laboratory Data: Upon admission, white count 11.4, hemoglobin 11.7, and platelets 244. Repeat white count on 02/22/2021, 6.8, hemoglobin 10.6, platelets 222. Upon admission, sodium 134, potassium 3.7 , chloride 99, bicarb 26, BUN 19, creatinine 1.22, and glucose 115. Liver function tests unremarkabl e. Lipase 102. Urinalysis; trace blood, trace esterase. COVID-19 test negative. Urine culture neg ative. Chest x-ray, no acute cardiopulmonary changes. CAT scan of the abdomen done upon admission s howed questionable increase in prominence of tail of the pancreas. Approximately 3 mets cm size area of increased fullness in the pancreatic tail and to rule out any pancreatic mass. We did obtain MRI of abdomen, which showed no discrete mass identified in the pancreatic tail. There was a 15 mm cyst ic lesion along the pancreatic body and that may represent a small intraductal papillary mucinous sumeet plasm, but this is unchanged compared to 10/03/2011, so that really does not have any clinical signif icance. Hospital Course: An 89-year-old female patient admitted to the hospital with trouble urinating. Ple ase see dictated H and P for more information. The patient was admitted to the hospital with this ur inary tract infection and toxic encephalopathy. She has shown characteristics of underlying senile d ementia problem during this hospitalization, which was very obvious. We did start her on Seroquel. Family, the patient's daughter was contacted and she informed me that is not possible for her to prov kristina care for her at home and we did talk about [facility] placement and daughter was agreeable and Social Service was consulted and once arrangements completed, the patient was discharged to go to [facility] in stable condition. Final Diagnoses: 1.Urinary tract infection. 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 5.Hypertension. 6.Hyperlipidemia. 7.Paroxysmal atrial fibrillation. 8.Chronic anticoagulation therapy. 9.Coronary artery disease. 10.Carotid artery stenosis, bilateral. 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 MELLISA/MODL Voice ID: [id number] Report ID: [id number]
== END 2021-02-24 18:36 | DRG 689 ==
LOC: ER 12:40 → ERHOLD 15:08 → 2ND 20:19
PROVIDERS: ADMIT Internal Medicine; ATTEND Internal Medicine
DX: N39.0 Urinary tract infection, site not specified (principal); G92.9 Unspecified toxic encephalopathy; K86.2 Cyst of pancreas; G30.9 Alzheimer's disease, unspecified; F02.80 Dementia in other diseases classified elsewhere, unspecified severity, without behavioral disturbance, psychotic disturbance, mood disturbance, and anxiety; E86.0 Dehydration; E78.5 Hyperlipidemia, unspecified; I48.0 Paroxysmal atrial fibrillation; F41.9 Anxiety disorder, unspecified; F40.240 Claustrophobia; I65.23 Occlusion and stenosis of bilateral carotid arteries; M19.90 Unspecified osteoarthritis, unspecified site; I25.10 Atherosclerotic heart disease of native coronary artery without angina pectoris; I12.9 Hypertensive chronic kidney disease with stage 1 through stage 4 chronic kidney disease, or unspecified chronic kidney disease; N18.32 Chronic kidney disease, stage 3b; Z88.5 Allergy status to narcotic agent; Z88.0 Allergy status to penicillin; Z88.7 Allergy status to serum and vaccine; Z91.048 Other nonmedicinal substance allergy status; Z95.1 Presence of aortocoronary bypass graft; Z90.49 Acquired absence of other specified parts of digestive tract; Z95.5 Presence of coronary angioplasty implant and graft; Z79.01 Long term (current) use of anticoagulants; Z79.899 Other long term (current) drug therapy; Z20.822 Contact with and (suspected) exposure to COVID-19
CPT/HCPCS: 36415; 51702; 71045; 74176; 74183; 76377; 80048; 80076; 81003; 83690; 83735; 83880; 84484; 85025; 85610; 87086; 87088; 93005; 96365; 97116; 97161; 97530; 99285; A9577; J1630; J7030; J7040; J7799; U0003

== ENCOUNTER 2021-07-19 18:15 | Emergency (ER) | payer OTHER ==
[2021-07-19] MEDS ORDERED: ONDANSETRON 4 MG/2 ML VIAL ONE (19:57)
[2021-07-19] MEDS ORDERED: FAMOTIDINE 20 MG/2 ML VIAL IV ONE (19:57)
[2021-07-19 20:18] LABS: Hematocrit 34.7 % (36.0-45.0); Lymphocytes % 28.1 % (15.3-44.8); MPV 8.7 fL (7.6-11.3); RBC Red Blood Cell Count 3.94 M/uL (3.86-4.86)
[2021-07-19 20:20] LABS: Protime INR 1.12
[2021-07-19 20:34] LABS: ALT/SGPT 13 U/L (12-78); AST/SGOT 15 U/L (15-37); Albumin 3.3 g/dL (3.4-5.0); Alkaline Phosphatase 62 U/L (45-117); BUN Blood Urea Nitrogen 33 mg/dL (7-18); Bicarbonate 28 mmol/L (21-32); Bilirubin Direct < 0.1 mg/dL (0-0.2); Bilirubin Total 0.3 mg/dL (0.2-1.0); Glucose Level 117 mg/dL (74-106); Lipase 132 U/L (73-393); Magnesium 1.9 mg/dL (1.8-2.4); Potassium 3.9 mmol/L (3.5-5.1); Protein, Total 6.2 g/dL (6.4-8.2); Sodium Level 142 mmol/L (136-145); Troponin High Sensitivity 15.1 pg/mL (<58.9)
--- NOTE | 2021-07-19 21:03 | RAD REPORT ---
EXAM DESCRIPTION: CTAbdomen Pelvis Wo Contrast - 07/19/2021 8:50 pm CLINICAL HISTORY: PAIN COMPARISON: Stone Protocol dated 02/21/2021; Abdomen Pelvis Wo Contrast dated 10/25/2018; CT ABDOMEN PELVIS WO CONTRAST dated 10/02/2013; CT ABDOMEN PELVIS WO CONTRAST dated 11/12/2011 TECHNIQUE: CT of the abdomen and pelvis was performed. All CT scans are performed using dose optimization technique as appropriate and may include automated exposure control or mA/KV adjustment according to patient size. FINDINGS: Lower chest: Small hiatal hernia. Coronary artery calcifications. Cardiomegaly. Liver: No acute abnormality or suspicious lesions. Biliary: No biliary ductal dilatation. Cholecystectomy Stomach: No significant focal abnormality. Duodenum: No significant focal abnormality. Pancreas: No significant abnormality. Spleen: No significant abnormality. Adrenal: No suspicious lesions. Kidney/ureter: No hydronephrosis. No renal calculi. Left renal scarring. Renal vascular calcification s bilaterally. Retroperitoneum: No retroperitoneal adenopathy. Vascular: No aneurysm. Atherosclerosis. Bowel: Moderate rectal stool burden.. Peritoneum: No ascites or free air. Bladder: Grossly unremarkable. Reproductive: No adnexal masses. Hysterectomy Bones: No acute fracture. Multilevel degenerative changes are present in the spine. Other: n/a IMPRESSION: No acute intra-abdominal or pelvic finding. Incidental findings as noted above.
[2021-07-20 00:05] LABS: Urine Blood Negative (Negative); Urine Glucose Negative (Negative); Urine Protein Negative (Negative)
--- NOTE | 2021-07-20 00:11 | ER ---
Nurse's Notes [facility] Name: Silvestre Damico Age: 89 yrs Sex: Female : 1930 Arrival Date: 07/19/2021 Time: 18:49 Bed 3 Private MD: Diagnosis: Constipation, unspecified;Unspecified hemorrhoids-external Presentation: 07/19 18:50 Chief complaint: EMS states: patient is from [facility] assisted living. It was ap3 reported to EMS that the patient was urinated blood clots, however the patient denies that. Instead she reports blood with her BM's since last week. Patient denies SOB, she is denies being dizzy, she denies being light headed at this time as well. Coronavirus screen: At this time, the client does not indicate any symptoms associated with coronavirus-19. Ebola Screen: No symptoms or risks identified at this time. Initial Sepsis Screen: Does the patient meet any 2 criteria? No. Patient's initial sepsis screen is negative. Does the patient have a suspected source of infection? No. Patient's initial sepsis screen is negative. Risk Assessment: Do you want to hurt yourself or someone else? Patient reports no desire to harm self or others. Onset of symptoms was July 12, 2021. 18:50 Method Of Arrival: EMS: [facility] ap3 18:50 Acuity: SUPRIYA 3 ap3 Triage Assessment: 18:56 General: Appears in no apparent distress. comfortable, Behavior is calm, cooperative, ap3 appropriate for age. Pain: Complains of pain in rectum Aggravated by bowel movements. Neuro: Level of Consciousness is awake, alert, obeys commands, Oriented to person, place, time, situation, Speech is normal. Cardiovascular: Patient's skin is warm and dry. Respiratory: Airway is patent Respiratory effort is even, unlabored. GI: Reports bloody stool. Historical: - Allergies: 18:53 Codeine; ap3 18:53 Demerol; ap3 18:53 FLU VACCINE; ap3 18:53 Iodine; ap3 18:53 PENICILLINS; ap3 18:53 tramadol; ap3 18:53 meperidine; ap3 18:53 Black Pepper; ap3 - PMHx: 18:53 Alzheimer's disease; High Cholesterol; Hypertension; Polio; Schizophrenia; Dementia; ap3 chronic kidney disease (stage 3); dysphagia; Atrial fibrillation; scoliosis; - Immunization history:: Flu vaccine is not up to date. - Social history:: Smoking status: unknown. Screenin:56 Abuse screen: Denies threats or abuse. Nutritional screening: No deficits noted. ap3 Tuberculosis screening: No symptoms or risk factors identified. 07/20 00:43 Fall Risk None identified. as6 Assessment: 07/19 19:58 General: Appears in no apparent distress. comfortable, Behavior is calm, cooperative. al4 Neuro: Level of Consciousness is awake, alert, obeys commands. Cardiovascular: Patient's skin is warm and dry. Respiratory: Airway is patent Respiratory effort is unlabored, Respiratory pattern is regular. GI: Reports rectal bleeding, hemorrhoids. 21:10 Reassessment: patient attempted urine sample, but contaminated it with stool. al4 22:00 Reassessment: Patient appears in no apparent distress at this time. al4 23:00 Reassessment: Patient appears in no apparent distress at this time. Patient denies pain al4 at this time. 07/20 00:00 Reassessment: Patient appears in no apparent distress at this time. Patient and/or al4 family updated on plan of care and expected duration. Pain level reassessed. Vital Signs: 07/19 18:50 BP 155 / 55; Pulse 59; Temp 97.8(TE); Pulse Ox 100% ; Weight 61.23 kg; ap3 19:45 BP 111 / 78; Pulse 58; Resp 16 S; Pulse Ox 100% on R/A; al4 20:30 BP 164 / 60; Pulse 56; Resp 20 S; Pulse Ox 90% on R/A; al4 22:00 BP 154 / 57; Pulse 56; Resp 15 S; Pulse Ox 97% on R/A; as6 07/20 00:00 BP 142 / 61; Pulse 61; Resp 16 S; Pulse Ox 100% on R/A; as6 ED Course: 07/19 18:49 Patient arrived in ED. ap3 18:52 Triage completed. ap3 18:57 Arm band placed on right wrist. ap3 18:57 Patient has correct armband on for positive identification. Bed in low position. Call ap3 light in reach. Side rails up X2. Adult w/ patient. rn gastroenterology on. Pulse ox on. NIBP on. Door closed. Noise minimized. 19:05 Brett Adams, COREY is Primary Nurse. as6 19:06 Anmol Malin [facility] is [facility]. cp 19:06 Nikolay Schaffer MD is Attending Physician. cp 19:17 Attending Physician role handed off by Nikolay Schaffer MD cha 19:17 Anmol Mancia MD is Attending Physician. amy 19:51 Maintain EMS IV. Dressing intact. Good blood return noted. Site clean \T\ dry. Gauge \T\ al 4 site: L AC. 20:52 Abdomen In Process Unspecified. EDMS 23:58 Straight cath inserted, using sterile technique, 14 Fr. Specimen obtained. al4 07/20 00:43 No provider procedures requiring assistance completed. IV discontinued, intact, as6 bleeding controlled, No redness/swelling at site. Pressure dressing applied. Administered Medications: 07/19 19:58 Drug: Pepcid (famotidine) 20 mg Route: IVP; Site: left antecubital; al4 07/20 00:45 Follow up: Response: No adverse reaction as6 07/19 20:51 Not Given (Patient Refused): Zofran (Ondansetron) 4 mg IVP once; over 2 minutes al4 07/20 00:18 Not Given (Physician Discretion): Fleet Enema (sodium phosphate) 133 ml NH once; july al4 repeat once Outcome: 00:11 Discharge ordered by . cp 00:43 Discharged to home via wheelchair, with family. as6 00:43 Condition: stable 00:43 Discharge instructions given to patient, family, Instructed on discharge instructions, follow up and referral plans. medication usage, Demonstrated understanding of instructions, follow-up care, medications, Prescriptions given X 2. 00:45 Patient left the ED. as6 Signatures: Dispatcher [employer] EDNM Anmol Mancia MD MD cha Page, Corey, PA PA cp Prokisch, Amanda RN RN ap3 Brett Adams, COREY RN as6 Kit Christie al4
--- NOTE | 2021-07-20 00:11 | EDPHYS ---
Physician Documentation [facility] Name: Silvestre Damico Age: 89 yrs Sex: Female : 1930 Arrival Date: 07/19/2021 Time: 18:49 Bed 3 Private MD: ED Physician Anmol Mancia HPI: 07/19 19:25 This 89 yrs old Female presents to ER via EMS with complaints of Rectal Bleeding. cp 19:25 The patient presents to the emergency department with bleeding from the rectum/anus, cp that is moderate. Onset: The symptoms/episode began/occurred yesterday. Context: the patient with bowel movement. 19:25 Associate signs and symptoms: Pertinent positives: constipation, Pertinent negatives: cp diarrhea, fever, vomiting. 19:25 Patient reports noticing blood in stool with bowel movement yesterday and again today cp after attempting to manually disimpact herself using her finger due to constipation. Historical: - Allergies: 18:53 Codeine; ap3 18:53 Demerol; ap3 18:53 FLU VACCINE; ap3 18:53 Iodine; ap3 18:53 PENICILLINS; ap3 18:53 tramadol; ap3 18:53 meperidine; ap3 18:53 Black Pepper; ap3 - PMHx: 18:53 Alzheimer's disease; High Cholesterol; Hypertension; Polio; Schizophrenia; Dementia; ap3 chronic kidney disease (stage 3); dysphagia; Atrial fibrillation; scoliosis; - Immunization history:: Flu vaccine is not up to date. - Social history:: Smoking status: unknown. ROS: 19:30 Constitutional: Negative for body aches, chills, fever, poor PO intake. cp 19:30 Eyes: Negative for injury, pain, redness, and discharge. cp 19:30 ENT: Negative for drainage from ear(s), ear pain, sore throat, difficulty swallowing, difficulty handling secretions. 19:30 Cardiovascular: Negative for chest pain, edema, palpitations. 19:30 Respiratory: Negative for cough, shortness of breath, wheezing. 19:30 Abdomen/GI: Positive for constipation, rectal bleeding, Negative for abdominal pain, vomiting, diarrhea, black/tarry stool. 19:30 : Negative for urinary symptoms. 19:30 Neuro: Negative for altered mental status, dizziness, headache, loss of consciousness, syncope, weakness. 19:30 All other systems are negative. Exam: 19:35 Constitutional: The patient appears in no acute distress, alert, awake, cp non-diaphoretic, non-toxic, well developed, well nourished. 19:35 Head/Face: Normocephalic, atraumatic. cp 19:35 Eyes: Periorbital structures: appear normal, Conjunctiva: normal, no exudate, no injection, Sclera: no appreciated abnormality, Lids and lashes: appear normal, bilaterally. 19:35 ENT: External ear(s): are unremarkable, Nose: is normal, Mouth: Lips: moist, Oral mucosa: moist, Posterior pharynx: Airway: no evidence of obstruction, patent. 19:35 Chest/axilla: Inspection: normal, Palpation: is normal, no crepitus, no tenderness. 19:35 Cardiovascular: Rate: bradycardic, Rhythm: regular, Edema: is not appreciated, JVD: is not appreciated. 19:35 Respiratory: the patient does not display signs of respiratory distress, Respirations: normal, no use of accessory muscles, no retractions, labored breathing, is not present, Breath sounds: are clear throughout, no decreased breath sounds, no stridor, no wheezing. 19:35 Abdomen/GI: Inspection: abdomen appears normal, Bowel sounds: active, all quadrants, Palpation: soft, in all quadrants, mild abdominal tenderness, in the right lower quadrant and left lower quadrant, rebound tenderness, is not appreciated, involuntary guarding, is not appreciated. 19:35 Back: pain, is absent, ROM is normal. 19:35 Neuro: Orientation: to person, place \T\ time. Mentation: is normal, Motor: moves all fours, strength is normal, Sensation: is normal. 19:38 ECG was reviewed by the Attending Physician. cp 20:45 : Rectal exam: Stool: brown, soft, Guaiac testing: results were positive for occult cp blood, hemorrhoid(s), external, thrombosed, no rectal impaction appreciated on exam. Vital Signs: 18:50 BP 155 / 55; Pulse 59; Temp 97.8(TE); Pulse Ox 100% ; Weight 61.23 kg; ap3 19:45 BP 111 / 78; Pulse 58; Resp 16 S; Pulse Ox 100% on R/A; al4 20:30 BP 164 / 60; Pulse 56; Resp 20 S; Pulse Ox 90% on R/A; al4 22:00 BP 154 / 57; Pulse 56; Resp 15 S; Pulse Ox 97% on R/A; as6 07/20 00:00 BP 142 / 61; Pulse 61; Resp 16 S; Pulse Ox 100% on R/A; as6 MDM: 07/19 19:17 Patient medically screened. amy 19:50 Differential diagnosis: hemorrhoids, fissure, abscess, diverticulitis, lower GI bleed, cp colitis. 21:33 Data reviewed: vital signs, nurses notes, lab test result(s), EKG, radiologic studies, cp CT scan. 21:50 Test interpretation: by ED physician or midlevel provider: ECG. Counseling: I had a cp detailed discussion with the patient and/or guardian regarding: the historical points, exam findings, and any diagnostic results supporting the discharge/admit diagnosis, lab results, radiology results, Patient with small bowel movement while in ED, no observed gross blood. Will order enema and UA as requested by daughter due to concern for infection and discharge to [facility] for continued monitoring. 07/19 19:20 Order name: CBC with Diff; Complete Time: 20:43 cp 07/19 20:43 Interpretation: Normal except: HGB 11.7; HCT 34.7; MCV 88.2. cp 07/19 19:20 Order name: Lipase; Complete Time: 20:43 cp 07/19 19:20 Order name: PT-INR; Complete Time: 20:43 cp 07/19 19:20 Order name: Ptt, Activated; Complete Time: 20:43 cp 07/19 19:20 Order name: Troponin High Sensitivity; Complete Time: 20:43 cp 07/19 19:20 Order name: LFT's; Complete Time: 20:43 cp 07/19 20:44 Interpretation: Normal except: TP 6.2; ALB 3.3. cp 07/19 19:20 Order name: BMP; Complete Time: 20:43 cp 07/19 20:43 Interpretation: Normal except: CL 109; GLUC 117; BUN 33; CRE 1.56; GFR 31. cp 07/19 19:20 Order name: Magnesium; Complete Time: 20:43 cp 07/19 20:10 Order name: Abdomen ; Complete Time: 21:23 EDMS 07/20 00:05 Order name: Urine Dipstick-Ancillary; Complete Time: 00:08 EDMO 07/19 19:20 Order name: IV Saline Lock; Complete Time: 19:50 07/19 19:20 Order name: Labs collected and sent; Complete Time: 19:50 07/19 19:20 Order name: Urine Dipstick-Ancillary (obtain specimen); Complete Time: 00:15 07/19 19:20 Order name: EKG; Complete Time: 19:21 07/19 19:20 Order name: EKG - Nurse/Tech; Complete Time: 19:38 cp 07/19 21:46 Order name: Cath; Complete Time: 00:18 cp EC:38 Rate is 59 beats/min. Rhythm is regular. MT interval is normal. QRS interval is cp prolonged at 124 msec. QT interval is normal. T waves are Inverted in lead aVR. Interpreted by me. Reviewed by me. Administered Medications: 19:58 Drug: Pepcid (famotidine) 20 mg Route: IVP; Site: left antecubital; al4 07/20 00:45 Follow up: Response: No adverse reaction as6 07/19 20:51 Not Given (Patient Refused): Zofran (Ondansetron) 4 mg IVP once; over 2 minutes al4 07/20 00:18 Not Given (Physician Discretion): Fleet Enema (sodium phosphate) 133 ml MT once; july repeat once Disposition: 07:15 Co-signature as Attending Physician, Anmol Mancia MD I agree with the assessment and amy plan of care. Disposition Summary: 07/20/21 00:11 Discharge Ordered Location: Home cp Problem: new cp Symptoms: have improved cp Condition: Stable cp Diagnosis - Constipation, unspecified cp - Unspecified hemorrhoids - external cp Followup: cp - With: Private Physician - When: 1 - 2 days - Reason: Recheck today's complaints Discharge Instructions: - Discharge Summary Sheet cp - Constipation, Adult cp - High-Fiber Diet cp - Hemorrhoids cp Forms: - Medication Reconciliation Form cp - Thank You Letter cp - Antibiotic Education cp - Prescription Opioid Use cp Prescriptions: - Miralax 17 gram Oral powder in packet - take 1 packet by ORAL route once daily As needed; 30 packet; Refills: 0, cp Product Selection Permitted - Anusol-HC 25 mg Rectal Suppository - insert 1 suppository by RECTAL route every 12 hours As needed; 20 suppository; cp Refills: 0, Product Selection Permitted Signatures: Dispatcher [employer] Anmol Watson MD MD cha Page, Corey, PA PA cp Prokisch, Amanda RN RN ap3 Kit Christie Ashby RN as6
[2021-07-20 02:26] VITALS: TEMP 97.8
[2021-07-20 02:32] VITALS: BP 142/61; O2SAT 100
--- NOTE | 2021-07-21 07:48 | EKG ---
Test Date: 2021-07-19 Test Time: 19:35:55 Costume Specialist: NANCY MEASUREMENT RESULTS: Intervals: Rate: 59 AR: 166 QRSD: 124 QT: 450 QTc: 445 Ruth: P: 73 AR: 166 QRS: -54 T: 62 INTERPRETIVE STATEMENTS: Sinus bradycardia Indeterminate axis Right bundle branch block Abnormal ECG Compared to ECG 02/21/2021 13:47:24 Indeterminate axis now present Sinus rhythm no longer present Electronically Signed On 07-21-21 07:42:47 CDT by Dhiraj Ramos
== END 2021-07-20 00:45 | disposition home or self-care (01) ==
LOC: ER 18:15
DX: K64.4 Residual hemorrhoidal skin tags (principal); K59.00 Constipation, unspecified; I12.9 Hypertensive chronic kidney disease with stage 1 through stage 4 chronic kidney disease, or unspecified chronic kidney disease; N18.30 Chronic kidney disease, stage 3 unspecified; G30.9 Alzheimer's disease, unspecified; F02.80 Dementia in other diseases classified elsewhere, unspecified severity, without behavioral disturbance, psychotic disturbance, mood disturbance, and anxiety; E78.00 Pure hypercholesterolemia, unspecified; Z88.0 Allergy status to penicillin; Z88.5 Allergy status to narcotic agent; Z88.7 Allergy status to serum and vaccine; Z91.018 Allergy to other foods; Z91.048 Other nonmedicinal substance allergy status
CPT/HCPCS: 93005; 85025; 80048; 36415; 83735; 85610; 80076; 85730; 81003; 84484; 83690; 74176; 51702; 96374; 99284; J3490; J2405

== ENCOUNTER 2021-07-21 12:10 | Emergency (ER) | payer OTHER ==
[2021-07-21 13:18] LABS: Absolute Lymphocytes (CBC) 1.2 K/uL (0.7-4.9); MPV 8.7 fL (7.6-11.3); RBC Red Blood Cell Count 4.06 M/uL (3.86-4.86)
[2021-07-21 13:33] LABS: Troponin High Sensitivity 11.4 pg/mL (<58.9)
--- NOTE | 2021-07-21 14:22 | RAD REPORT ---
EXAM DESCRIPTION: Bela Single View07/21/2021 2:00 pm CLINICAL HISTORY: Syncope COMPARISON: 2020 FINDINGS: The lungs appear clear of acute infiltrate. The heart is normal size IMPRESSION: No acute abnormalities displayed
--- NOTE | 2021-07-21 16:02 | RAD REPORT ---
EXAM DESCRIPTION: RAD - Abdomen W Erect - 07/21/2021 3:46 pm CLINICAL HISTORY: Abdominal pain FINDINGS: Free air is not seen beneath the diaphragm. Air is present within a few nondilated loops of small bowel in a nonspecific fashion. Vascular calcifications are noted. Moderate scoliosis
--- NOTE | 2021-07-21 16:34 | ER ---
Nurse's Notes [facility] Name: Silvestre Damico Age: 89 yrs Sex: Female : 1930 Arrival Date: 07/21/2021 Time: 12:21 Bed 7 Private MD: Diagnosis: Constipation;Abdominal pain, Generalized Presentation: 07/21 12:21 Chief complaint: EMS states: "we were toned out for a positive syncope episode. we jd3 arrived on scene and the pt was found on the toilet slumped over. she was initially hypotensive with systolics in the 70's. she was pale and diaphoretic. she reported that she was bearing down and was using her finger/hand to help the stool come out. she reports that she was seen here 3 days ago for the same problem.". Coronavirus screen: At this time, the client does not indicate any symptoms associated with coronavirus-19. Ebola Screen: No symptoms or risks identified at this time. Initial Sepsis Screen: Does the patient meet any 2 criteria? No. Patient's initial sepsis screen is negative. Does the patient have a suspected source of infection? No. Patient's initial sepsis screen is negative. Risk Assessment: Do you want to hurt yourself or someone else? Patient reports no desire to harm self or others. Onset of symptoms was July 21, 2021. 12:21 Method Of Arrival: EMS: [facility] jd3 12:21 Acuity: SUPRIYA 3 jd3 Historical: - Allergies: 12:26 Black Pepper; jd3 12:26 Codeine; jd3 12:26 Demerol; jd3 12:26 FLU VACCINE; jd3 12:26 Iodine; jd3 12:26 meperidine; jd3 12:26 PENICILLINS; jd3 12:26 tramadol; jd3 - PMHx: 12:26 Hypertension; High Cholesterol; Polio; Schizophrenia; DYSPHAGIA; chronic kidney disease jd3 (stage 3); Atrial fibrillation; Alzheimer's disease; Dementia; scoliosis; - PSHx: 12:26 Coronary artery bypass graft; Stented artery; jd3 - Immunization history:: Adult Immunizations up to date. - Social history:: Smoking status: Patient reports the use of cigarette tobacco products, smokes one-half pack cigarettes per day. Screenin:30 Abuse screen: Denies threats or abuse. Nutritional screening: No deficits noted. jd3 Tuberculosis screening: No symptoms or risk factors identified. Fall Risk Ambulatory Aid- None/Bed Rest/Nurse Assist (0 pts). Gait- Normal/Bed Rest/Wheelchair (0 pts) Mental Status- Oriented to own ability (0 pts). Total Woo Fall Scale indicates No Risk (0-24 pts). Assessment: 12:28 General: Appears in no apparent distress. comfortable, Behavior is calm, cooperative, jd3 appropriate for age. Pain: Denies pain. Neuro: Level of Consciousness is awake, alert, obeys commands, Oriented to person, place, time, situation, Moves all extremities. Full function Speech is normal, Pupils are PERRLA, Intact Reports a syncopal episode and general weakness. Cardiovascular: Denies chest pain, Capillary refill < 3 seconds Patient's skin is warm and dry. Respiratory: Airway is patent Respiratory effort is even, unlabored, Respiratory pattern is regular, symmetrical, Denies cough, shortness of breath. GI: Abdomen is round non-distended, Abd is soft and non tender X 4 quads. Reports constipation. : No signs and/or symptoms were reported regarding the genitourinary system. EENT: No signs and/or symptoms were reported regarding the EENT system. Derm: Skin is intact, Skin is dry, Skin is normal, Skin temperature is warm. Musculoskeletal: Circulation, motion, and sensation intact. Range of motion: intact in all extremities. 13:21 Reassessment: Patient appears in no apparent distress at this time. No changes from jd3 previously documented assessment. Patient and/or family updated on plan of care and expected duration. Pain level reassessed. Patient is alert, oriented x 3, equal unlabored respirations, skin warm/dry/pink. 13:25 Reassessment: called to Gabriela Floyd to investigate bowl habits. no report was given j on pt's bowl patters. Gabriela nurse reported no documentation on bowl patterns. 16:02 Reassessment: Patient appears in no apparent distress at this time. No changes from jd3 previously documented assessment. Patient and/or family updated on plan of care and expected duration. Pain level reassessed. Patient is alert, oriented x 3, equal unlabored respirations, skin warm/dry/pink. 16:55 Reassessment: Patient appears in no apparent distress at this time. Patient and/or jd3 family updated on plan of care and expected duration. Pain level reassessed. Patient is alert, oriented x 3, equal unlabored respirations, skin warm/dry/pink. Patient states feeling better. Patient states symptoms have improved. 16:56 Reassessment: awaiting daughter to return for discharge. jd3 Vital Signs: 12:27 BP 105 / 51; Pulse 61; Resp 15 S; Temp 97.5(TE); Pulse Ox 95% on R/A; Weight 79.38 kg jd3 (R); Height 5 ft. 6 in. (167.64 cm) (R); Pain 0/10; 13:21 BP 138 / 57; Pulse 56; Resp 16 S; Pulse Ox 100% on R/A; jd3 16:02 BP 149 / 82; Pulse 54; Resp 16 S; Pulse Ox 100% on R/A; jd3 16:55 BP 145 / 80; Pulse 58; Resp 17 S; Pulse Ox 100% on R/A; jd3 12:27 Body Mass Index 28.25 (79.38 kg, 167.64 cm) jd3 ED Course: 12:21 Patient arrived in ED. jd3 12:21 Devan Powers, RN is Primary Nurse. jd3 12:26 Triage completed. jd3 12:28 Arm band placed on. jd3 12:30 Patient has correct armband on for positive identification. Bed in low position. Call j light in reach. Side rails up X2. electronic device monitor on. Pulse ox on. NIBP on. 12:37 Nikolay Schaffer MD is Attending Physician. kdr 13:17 Maintain EMS IV. Dressing intact. Good blood return noted. Site clean \\T\\ dry. Gauge \\T\\ lucia 3 site: 20 G to the right AC. 14:01 XRAY Chest (1 view) In Process Unspecified. EDMS 15:47 Abdomen W Erect In Process Unspecified. EDMS 17:17 No provider procedures requiring assistance completed. IV discontinued, intact, jd3 bleeding controlled, No redness/swelling at site. Pressure dressing applied. Administered Medications: No medications were administered Outcome: 16:33 Discharge ordered by . kdr 17:17 Discharged to home via wheelchair, with family. jd3 17:17 Condition: stable 17:17 Discharge instructions given to patient, family, Instructed on discharge instructions, follow up and referral plans. Demonstrated understanding of instructions, follow-up care. 17:18 Patient left the ED. jd3 Signatures: Dispatcher [employer] Nikolay Mejia MD MD kdr Davies, Jonathon, RN RN jd3
--- NOTE | 2021-07-21 16:34 | EDPHYS ---
Physician Documentation [facility] Name: Silvestre Damico Age: 89 yrs Sex: Female : 1930 Arrival Date: 07/21/2021 Time: 12:21 Bed 7 Private MD: ED Physician Nikolay Schaffer HPI: 07/21 14:08 This 89 yrs old Female presents to ER via EMS with complaints of Weakness, constipation.kdr 07/22 11:19 The patient was found slumped over and sitting on the toilet. She did not have an LOC kdr but was briefly altered. She denies any other injury.. Onset: The symptoms/episode began/occurred suddenly, just prior to arrival. Severity of symptoms: At their worst the symptoms were moderate severe incapacitating in the emergency department the symptoms have improved markedly. The patient has not experienced similar symptoms in the past. The patient has not recently seen a physician. Historical: - Allergies: 07/21 12:26 Black Pepper; jd3 12:26 Codeine; jd3 12:26 Demerol; jd3 12:26 FLU VACCINE; jd3 12:26 Iodine; jd3 12:26 meperidine; jd3 12:26 PENICILLINS; jd3 12:26 tramadol; jd3 - PMHx: 12:26 Hypertension; High Cholesterol; Polio; Schizophrenia; DYSPHAGIA; chronic kidney disease jd3 (stage 3); Atrial fibrillation; Alzheimer's disease; Dementia; scoliosis; - PSHx: 12:26 Coronary artery bypass graft; Stented artery; jd3 - Immunization history:: Adult Immunizations up to date. - Social history:: Smoking status: Patient reports the use of cigarette tobacco products, smokes one-half pack cigarettes per day. ROS: 14:09 Constitutional: Negative for fever, chills, and weight loss, Eyes: Negative for injury, kdr pain, redness, and discharge, Neck: Negative for injury, pain, and swelling, Cardiovascular: Negative for chest pain, palpitations, and edema, Respiratory: Negative for shortness of breath, cough, wheezing, and pleuritic chest pain, Abdomen/GI: Negative for abdominal pain, nausea, vomiting, diarrhea, and constipation, Back: Negative for injury and pain, MS/Extremity: Negative for injury and deformity, Skin: Negative for injury, rash, and discoloration, Psych: Negative for depression, anxiety, suicide ideation, homicidal ideation, and hallucinations, Allergy/Immunology: Negative for hives, rash, and allergies, Endocrine: Negative for neck swelling, polydipsia, polyuria, polyphagia, and marked weight changes, Hematologic/Lymphatic: Negative for swollen nodes, abnormal bleeding, and unusual bruising. 14:09 Abdomen/GI: Positive for constipation, abdominal cramps. Exam: 07/22 11:19 Constitutional: This is a well developed, well nourished patient who is awake, alert, kdr and in no acute distress. Head/Face: Normocephalic, atraumatic. Eyes: Pupils equal round and reactive to light, extra-ocular motions intact. Lids and lashes normal. Conjunctiva and sclera are non-icteric and not injected. Cornea within normal limits. Periorbital areas with no swelling, redness, or edema. Neck: Trachea midline, no thyromegaly or masses palpated, and no cervical lymphadenopathy. Supple, full range of motion without nuchal rigidity, or vertebral point tenderness. No Meningismus. Chest/axilla: Normal chest wall appearance and motion. Nontender with no deformity. No lesions are appreciated. Cardiovascular: Regular rate and rhythm with a normal S1 and S2. No gallops, murmurs, or rubs. Normal PMI, no JVD. No pulse deficits. Respiratory: Lungs have equal breath sounds bilaterally, clear to auscultation and percussion. No rales, rhonchi or wheezes noted. No increased work of breathing, no retractions or nasal flaring. Back: No spinal tenderness. No costovertebral tenderness. Full range of motion. Skin: Warm, dry with normal turgor. Normal color with no rashes, no lesions, and no evidence of cellulitis. MS/ Extremity: Pulses equal, no cyanosis. Neurovascular intact. Full, normal range of motion. Psych: Awake, alert, with orientation to person, place and time. Behavior, mood, and affect are within normal limits. Neuro: Orientation: is normal, Mentation: slow to respond, Motor: moves all fours, Sensation: no obvious gross deficits, Gait: not tested. Vital Signs: 07/21 12:27 BP 105 / 51; Pulse 61; Resp 15 S; Temp 97.5(TE); Pulse Ox 95% on R/A; Weight 79.38 kg jd3 (R); Height 5 ft. 6 in. (167.64 cm) (R); Pain 0/10; 13:21 BP 138 / 57; Pulse 56; Resp 16 S; Pulse Ox 100% on R/A; jd3 16:02 BP 149 / 82; Pulse 54; Resp 16 S; Pulse Ox 100% on R/A; jd3 16:55 BP 145 / 80; Pulse 58; Resp 17 S; Pulse Ox 100% on R/A; jd3 12:27 Body Mass Index 28.25 (79.38 kg, 167.64 cm) jd3 MDM: 16:33 Patient medically screened. [facility] 07/22 11:22 Data reviewed: vital signs, nurses notes, lab test result(s), radiologic studies. kdr Counseling: I had a detailed discussion with the patient and/or guardian regarding: the historical points, exam findings, and any diagnostic results supporting the discharge/admit diagnosis, lab results, radiology results, the need for further work-up and treatment in the hospital. 07/21 12:38 Order name: Basic Metabolic Panel; Complete Time: 14:05 kdr 07/21 12:38 Order name: CBC with Diff; Complete Time: 14:05 kdr 07/21 12:38 Order name: Troponin HS; Complete Time: 14:05 kdr 07/21 12:38 Order name: XRAY Chest (1 view); Complete Time: 15:06 kdr 07/21 15:23 Order name: Abdomen W Erect; Complete Time: 16:26 EDMS 07/21 12:38 Order name: EKG; Complete Time: 12:39 kdr 07/21 12:38 Order name: Cardiac monitoring; Complete Time: 12:49 kdr 07/21 12:38 Order name: EKG - Nurse/Tech; Complete Time: 13:15 kdr 07/21 12:38 Order name: IV Saline Lock; Complete Time: 13:15 kdr 07/21 12:38 Order name: Labs collected and sent; Complete Time: 13:15 kdr 07/21 12:38 Order name: O2 Per Protocol; Complete Time: 12:49 kdr 07/21 12:38 Order name: O2 Sat Monitoring; Complete Time: 12:49 kdr Administered Medications: No medications were administered Disposition Summary: 07/21/21 16:33 Discharge Ordered Location: Home kdr Problem: an ongoing problem kdr Symptoms: have improved kdr Condition: Stable kdr Diagnosis - Constipation kdr - Abdominal pain, Generalized kdr Followup: kdr - With: Private Physician - When: 1 - 2 days - Reason: If symptoms return, Further diagnostic work-up, Recheck today's complaints, Continuance of care, Re-evaluation by your physician Discharge Instructions: - Discharge Summary Sheet kdr - Constipation, Adult, [id number] kdr - Abdominal Pain, Adult, [id number] kdr - Chronic Constipation kdr Forms: - Medication Reconciliation Form kdr - Thank You Letter kdr Signatures: Dispatcher [employer] EDMS Nikolay Schaffer MD MD kdr Devan Powers RN RN jd3 Corrections: (The following items were deleted from the chart) 07/21 15:23 15:08 Abdomen Acute Series+RAD.RAD.BRZ ordered. EDNE EDMS
[2021-07-21 17:58] VITALS: TEMP 97.5
[2021-07-21 18:12] VITALS: O2SAT 100
[2021-07-21 18:14] VITALS: BP 145/80
== END 2021-07-21 17:18 | disposition home or self-care (01) ==
LOC: ER 12:10
DX: K59.00 Constipation, unspecified (principal); R10.84 Generalized abdominal pain; I10 Essential (primary) hypertension; F20.9 Schizophrenia, unspecified; G30.9 Alzheimer's disease, unspecified; F02.80 Dementia in other diseases classified elsewhere, unspecified severity, without behavioral disturbance, psychotic disturbance, mood disturbance, and anxiety; Z95.1 Presence of aortocoronary bypass graft; Z88.0 Allergy status to penicillin; Z88.5 Allergy status to narcotic agent; Z88.7 Allergy status to serum and vaccine; Z88.8 Allergy status to other drugs, medicaments and biological substances; Z91.018 Allergy to other foods
CPT/HCPCS: 36415; 71045; 74019; 80048; 84484; 85025; 93005; 99284

== ENCOUNTER 2021-08-08 00:04 | Emergency (ER) | payer OTHER ==
[2021-08-08] MEDS ORDERED: LIDOCAINE 1% W/EPI 1:100,000 MDV 20 ML VIAL ONE (00:37)
[2021-08-08 01:23] LABS: Hematocrit 37.2 % (36.0-45.0); Lymphocytes % 28.9 % (15.3-44.8); MPV 8.7 fL (7.6-11.3); RBC Red Blood Cell Count 4.22 M/uL (3.86-4.86)
[2021-08-08 01:27] LABS: Protime INR 1.12
[2021-08-08 01:34] LABS: AST/SGOT 10 U/L (15-37); Albumin 3.4 g/dL (3.4-5.0); Alkaline Phosphatase 79 U/L (45-117); BUN Blood Urea Nitrogen 30 mg/dL (7-18); Bicarbonate 28 mmol/L (21-32); Bilirubin Total 0.3 mg/dL (0.2-1.0); Glomerular Filtration Rate 37 ml/min (=/>90); Glucose Level 129 mg/dL (74-106); Potassium 3.7 mmol/L (3.5-5.1); Protein, Total 6.5 g/dL (6.4-8.2); Sodium Level 141 mmol/L (136-145)
[2021-08-08 01:47] LABS: ALT/SGPT < 10 U/L (12-78); Bilirubin Direct < 0.1 mg/dL (0-0.2)
[2021-08-08] MEDS ORDERED: ACETAMINOPHEN 500 MG TAB ONE (03:47)
--- NOTE | 2021-08-08 04:57 | EDPHYS ---
Physician Documentation [facility] Name: Silvestre Damico Age: 89 yrs Sex: Female : 1930 Arrival Date: 08/08/2021 Time: 00:08 Bed 4 Private MD: ED Physician Milton Dahl HPI: 08/08 00:35 This 89 yrs old Female presents to ER via EMS with complaints of Fall Injury. mh7 00:35 Details of fall: The patient fell from an upright position, while walking, and struck a mh7 tile surface. Onset: The symptoms/episode began/occurred just prior to arrival. 00:35 Associated injuries: The patient sustained injury to the head, abrasion, contusion, mh7 hematoma. Severity of symptoms: At their worst the symptoms were moderate, just prior to arrival, in the emergency department the symptoms have improved, mildly. Historical: - Allergies: 00:14 Black Pepper; bb 00:14 Codeine; bb 00:14 Demerol; bb 00:14 FLU VACCINE; bb 00:14 Iodine; bb 00:14 meperidine; bb 00:14 PENICILLINS; bb 00:14 tramadol; bb - Home Meds: 00:14 Anusol Rectal [Active]; Eliquis oral [Active]; gabapentin oral [Active]; levocetirizine bb oral [Active]; memantine oral [Active]; pravastatin oral [Active]; pantoprazole oral [Active]; Lidocaine Viscous MM [Active]; quetiapine oral [Active]; losartan oral [Active]; ClearLax oral [Active]; - PMHx: 00:14 Alzheimer's disease; Atrial fibrillation; chronic kidney disease (stage 3); Dementia; bb DYSPHAGIA; High Cholesterol; Hypertension; Polio; Schizophrenia; scoliosis; - PSHx: 00:14 Coronary artery bypass graft; Stented artery; bb - Immunization history: Last tetanus immunization: unknown. - Social history:: Smoking status: unknown. ROS: 00:35 Constitutional: Negative for fever, chills, and weight loss, Eyes: Negative for injury, mh7 pain, redness, and discharge, ENT: Negative for injury, pain, and discharge, Neck: Negative for injury, pain, and swelling, Cardiovascular: Negative for chest pain, palpitations, and edema, Respiratory: Negative for shortness of breath, cough, wheezing, and pleuritic chest pain, Abdomen/GI: Negative for abdominal pain, nausea, vomiting, diarrhea, and constipation, Back: Negative for injury and pain, : Negative for injury, bleeding, discharge, and swelling, MS/Extremity: Negative for injury and deformity, Psych: Negative for depression, anxiety, suicide ideation, homicidal ideation, and hallucinations, Allergy/Immunology: Negative for hives, rash, and allergies, Endocrine: Negative for neck swelling, polydipsia, polyuria, polyphagia, and marked weight changes, Hematologic/Lymphatic: Negative for swollen nodes, abnormal bleeding, and unusual bruising. Exam: 00:35 Eyes: Pupils equal round and reactive to light, extra-ocular motions intact. Lids and mh7 lashes normal. Conjunctiva and sclera are non-icteric and not injected. Cornea within normal limits. Periorbital areas with no swelling, redness, or edema. ENT: Nares patent. No nasal discharge, no septal abnormalities noted. Tympanic membranes are normal and external auditory canals are clear. Oropharynx with no redness, swelling, or masses, exudates, or evidence of obstruction, uvula midline. Mucous membranes moist. Neck: Trachea midline, no thyromegaly or masses palpated, and no cervical lymphadenopathy. Supple, full range of motion without nuchal rigidity, or vertebral point tenderness. No Meningismus. Chest/axilla: Normal chest wall appearance and motion. Nontender with no deformity. No lesions are appreciated. Cardiovascular: Regular rate and rhythm with a normal S1 and S2. No gallops, murmurs, or rubs. Normal PMI, no JVD. No pulse deficits. Respiratory: Lungs have equal breath sounds bilaterally, clear to auscultation and percussion. No rales, rhonchi or wheezes noted. No increased work of breathing, no retractions or nasal flaring. Abdomen/GI: Soft, non-tender, with normal bowel sounds. No distension or tympany. No guarding or rebound. No evidence of tenderness throughout. Back: No spinal tenderness. No costovertebral tenderness. Full range of motion. MS/ Extremity: Pulses equal, no cyanosis. Neurovascular intact. Full, normal range of motion. 00:35 Constitutional: The patient appears in no acute distress, alert, awake, uncomfortable. Vital Signs: 00:08 BP 135 / 95; Pulse 67; Resp 18 S; Temp 98.2(O); Pulse Ox 95% on R/A; Weight 68.04 kg bb (R); Height 5 ft. 4 in. (162.56 cm) (R); 01:00 BP 128 / 79; Pulse 60; Resp 18 S; Pulse Ox 96% on R/A; as6 02:00 BP 115 / 61; Pulse 72; Resp 20 S; Pulse Ox 97% on R/A; as6 03:00 BP 111 / 62; Pulse 59; Resp 18 S; Pulse Ox 95% on R/A; as6 04:12 BP 97 / 65; Pulse 54; Resp 20 S; Pulse Ox 96% on R/A; as6 05:00 BP 108 / 64; Pulse 62 MON; Resp 18 S; Pulse Ox 96% on R/A; as6 00:08 Body Mass Index 25.75 (68.04 kg, 162.56 cm) bb [place] Coma Score: 00:08 Eye Response: spontaneous(4). Verbal Response: oriented(5). Motor Response: obeys bb commands(6). Total: 15. Trauma Score (Adult): 00:08 Eye Response: spontaneous(1); Verbal Response: oriented(1); Motor Response: obeys bb commands(2); Systolic BP: > 89 mm Hg(4); Respiratory Rate: 10 to 29 per min(4); [place] Score: 15; Trauma Score: 12 Laceration: 03:50 Wound Repair of 3.0cm ( 1.2in ) subcutaneous laceration to right parietal area. mh7 Irregularly shaped.. Profuse bleeding noted.. Arterial bleeding noted.. Hemostasis noted.. Distal neuro/vascular/tendon intact. Anesthesia: Local anesthetic administered with 6 mls of 1% lidocaine w/ Epi. Wound prep: Extensive cleansing with hibiclenz by me, Wound irrigation by me, Wound explored extensively, Copious irrigation. Skin closed with 5 3-0 Prolene using One figure of eight suture placed. Dressed with Kerlix, non-adherent dressing. Patient tolerated well. MDM: 04:54 Differential diagnosis: abrasion, closed head injury, contusion, fracture, laceration. mh7 Data reviewed: vital signs, nurses notes, EMS record, skilled nursing records, old medical records, lab test result(s), CBC, electrolytes, radiologic studies, CT scan. Data interpreted: Pulse oximetry: on room air is 96 %. Interpretation: normal. Counseling: I had a detailed discussion with the patient and/or guardian regarding: the historical points, exam findings, and any diagnostic results supporting the discharge/admit diagnosis, lab results, radiology results, the need for outpatient follow up, to return to the emergency department if symptoms worsen or persist or if there are any questions or concerns that arise at home. Response to treatment: the patient's symptoms have markedly improved after treatment. 04:56 Patient medically screened. [facility] 08/08 00:28 Order name: Basic Metabolic Panel; Complete Time: 02:16 [facility] 08/08 00:28 Order name: CBC with Diff; Complete Time: 02:16 [facility] 08/08 00:28 Order name: Type And Screen; Complete Time: 02:58 [facility] 08/08 00:28 Order name: LFT's; Complete Time: 02:16 [facility] 08/08 00:28 Order name: Protime (+inr); Complete Time: 02:16 [facility] 08/08 00:28 Order name: Ptt, Activated; Complete Time: 02:16 [facility] 08/08 00:28 Order name: CT Head C Spine [facility] 08/08 00:28 Order name: Labs collected and sent; Complete Time: 01:08 [facility] Administered Medications: 04:01 Drug: Tylenol 1000 mg Route: PO; as6 05:17 Follow up: Response: No adverse reaction as6 Disposition Summary: 08/08/21 04:56 Discharge Ordered Location: Home [facility] Problem: [facility] Symptoms: have improved [facility] Condition: Stable [facility] Diagnosis - Fall, Mechanical 7 - Head Contusion, Scalp Laceration [facility] Followup: [facility] - With: Private Physician - When: 1 - 2 days - Reason: Wound Recheck, Worsening of condition, Recheck today's complaints, Continuance of care, Re-evaluation by your physician Followup: [facility] - With: Emergency Department - When: 2 - 3 days - Reason: Wound Recheck, Worsening of condition Discharge Instructions: - Discharge Summary Sheet [facility] - Laceration Care, Adult, [id number] [facility] - Fall Prevention in the Home, Adult, [id number] 7 - Facial or Scalp Contusion, [id number] mh7 Forms: - Medication Reconciliation Form [facility] - Thank You Letter [facility] - Antibiotic Education [facility] - Prescription Opioid Use [facility] Signatures: Dispatcher [employer] Farida Nevarez RN RN bb Milton Dahl MD MD mh7 Brett Adams RN RN as6
--- NOTE | 2021-08-08 04:57 | ER ---
Nurse's Notes [facility] Name: Silvestre Damico Age: 89 yrs Sex: Female : 1930 Arrival Date: 08/08/2021 Time: 00:08 Bed 4 Private MD: Diagnosis: Fall, Mechanical;Head Contusion, Scalp Laceration Presentation: 08/08 00:08 Chief complaint: EMS states: they were toned out for report of pt with mechanical fall bb pt hit back of head and has a hematoma and laceration denies LOC. Care prior to arrival: None. Mechanism of Injury: Fall. Trauma event details: Injury occurred in the [facility], Injury occurred: at home. Injury occurred: August 08, 2021. 00:08 Acuity: SUPRIYA 2 bb 00:08 Method Of Arrival: EMS: [facility] bb 00:14 Coronavirus screen: Ebola Screen: No symptoms or risks identified at this time. Initial bb Sepsis Screen: Does the patient meet any 2 criteria? No. Patient's initial sepsis screen is negative. Does the patient have a suspected source of infection? No. Patient's initial sepsis screen is negative. Risk Assessment: Do you want to hurt yourself or someone else? Patient reports no desire to harm self or others. Onset of symptoms was August 08, 2021. Trauma Activation: Alert Physician: ED Physician; Name: Nabila; Notified At: 00:03; Arrived At: Physician: General Surgeon; Name: ; Notified At: 00:03; Arrived At: Physician: Radiology; Name: Ken; Notified At: 00:03; Arrived At: 00:07 Physician: Respiratory; Name: ; Notified At: 00:03; Arrived At: Physician: Lab; Name: ; Notified At: 00:03; Arrived At: Historical: - Allergies: 00:14 Black Pepper; bb 00:14 Codeine; bb 00:14 Demerol; bb 00:14 FLU VACCINE; bb 00:14 Iodine; bb 00:14 meperidine; bb 00:14 PENICILLINS; bb 00:14 tramadol; bb - Home Meds: 00:14 Anusol Rectal [Active]; Eliquis oral [Active]; gabapentin oral [Active]; levocetirizine bb oral [Active]; memantine oral [Active]; pravastatin oral [Active]; pantoprazole oral [Active]; Lidocaine Viscous MM [Active]; quetiapine oral [Active]; losartan oral [Active]; ClearLax oral [Active]; - PMHx: 00:14 Alzheimer's disease; Atrial fibrillation; chronic kidney disease (stage 3); Dementia; bb DYSPHAGIA; High Cholesterol; Hypertension; Polio; Schizophrenia; scoliosis; - PSHx: 00:14 Coronary artery bypass graft; Stented artery; bb - Immunization history: Last tetanus immunization: unknown. - Social history:: Smoking status: unknown. Screenin:08 Abuse screen: Denies threats or abuse. Tuberculosis screening: No symptoms or risk bb factors identified. 00:56 Nutritional screening: No deficits noted. Fall Risk Fall in past 12 months (25 points). as6 Secondary diagnosis (15 points) dementia, IV access (20 points). Total Woo Fall Scale indicates High Risk Score (45 or more points). Side Rails Up X 2 Frequent Obs/Assessments Occuring Family Present and informed to notify staff if the need to leave the bedside As available patient and family educated on Fall Prevention Program and Strategies. Primary Survey: 00:08 NO uncontrolled hemorrhage observed. A: The client is awake and alert. The airway is bb patent. Breathing/Chest: Spontaneous respiratory effort, equal unlabored respirations, breath sounds clear bilaterally, regular pattern, symmetrical chest rise and fall. Circulation: No external hemorrhage present. Regular and strong central pulse, skin warm/dry/normal color. Disability Client is alert. 05:14 Exposure/Environment: There is no evidence of uncontrolled external bleeding. as6 Reassessment Alertness and Airway: Airway Patent Breathing: Respiratory effort Spontaneous Unlabored. Reassessment Circulation: Pulses Palpable Disability: Pupils Pupils are equal, round, reactive to light and accomodation. Alert. Assessment: 00:55 General: Appears in no apparent distress. Behavior is calm, cooperative. Pain: as6 Complains of pain in right parietal area. Neuro: Level of Consciousness is awake, alert, obeys commands, Oriented to person, place, time, situation. Cardiovascular: JVD is absent Patient's skin is warm and dry. Respiratory: Respiratory effort is even, unlabored, Respiratory pattern is regular, symmetrical. Derm: Wound noted right parietal area Wound is laceration. Vital Signs: 00:08 BP 135 / 95; Pulse 67; Resp 18 S; Temp 98.2(O); Pulse Ox 95% on R/A; Weight 68.04 kg bb (R); Height 5 ft. 4 in. (162.56 cm) (R); 01:00 BP 128 / 79; Pulse 60; Resp 18 S; Pulse Ox 96% on R/A; as6 02:00 BP 115 / 61; Pulse 72; Resp 20 S; Pulse Ox 97% on R/A; as6 03:00 BP 111 / 62; Pulse 59; Resp 18 S; Pulse Ox 95% on R/A; as6 04:12 BP 97 / 65; Pulse 54; Resp 20 S; Pulse Ox 96% on R/A; as6 05:00 BP 108 / 64; Pulse 62 MON; Resp 18 S; Pulse Ox 96% on R/A; as6 00:08 Body Mass Index 25.75 (68.04 kg, 162.56 cm) bb Alden Coma Score: 00:08 Eye Response: spontaneous(4). Verbal Response: oriented(5). Motor Response: obeys bb commands(6). Total: 15. Trauma Score (Adult): 00:08 Eye Response: spontaneous(1); Verbal Response: oriented(1); Motor Response: obeys bb commands(2); Systolic BP: > 89 mm Hg(4); Respiratory Rate: 10 to 29 per min(4); Chantale Score: 15; Trauma Score: 12 ED Course: 00:08 Patient arrived in ED. bb 00:08 Patient has correct armband on for positive identification. Bed in low position. Side bb rails up X2. 00:08 Patient maintains SpO2 saturation greater than 95% on room air. bb 00:10 Triage completed. bb 00:13 Milton Dahl MD is Attending Physician. 7 00:14 Arm band placed on Patient placed in an exam room, on a stretcher, on pulse oximetry. bb 00:19 Thermoregulation: warm blanket given to patient. bb 00:28 Brett Adams, COREY is Primary Nurse. as6 00:42 Inserted saline lock: 22 gauge in right forearm, using aseptic technique. as6 01:38 CT Head C Spine In Process Unspecified. EDMS 05:13 No provider procedures requiring assistance completed. IV discontinued, intact, as6 bleeding controlled, No redness/swelling at site. Pressure dressing applied. Wound care: to laceration located on right parietal area was cleaned with soap and water, dressed with 4X4s, Kerlix. Administered Medications: 04:01 Drug: Tylenol 1000 mg Route: PO; as6 05:17 Follow up: Response: No adverse reaction as6 Medication: 05:14 VIS not applicable for this client. as6 Intake: 00:08 PO: 0ml; Total: 0ml. bb Outcome: 04:56 Discharge ordered by . [facility] 05:14 Patient's length of stay in the Emergency Department was greater than 2 hours. pending as6 provider orders Patient's length of stay extended due to 05:14 Discharged to home via wheelchair, with family. as6 05:14 Condition: stable 05:14 Discharge instructions given to patient, family, Instructed on discharge instructions, follow up and referral plans. Demonstrated understanding of instructions, follow-up care. 05:18 Patient left the ED. as6 Signatures: Dispatcher [employer] EDMS Farida Randolph RN RN bb Milton Dahl MD MD [facility] Brett Adams RN RN as6
[2021-08-08 05:35] VITALS: TEMP 98.2
[2021-08-08 05:41] VITALS: O2SAT 96
[2021-08-08 05:43] VITALS: BP 108/64
--- NOTE | 2021-08-08 17:14 | RAD REPORT ---
EXAM DESCRIPTION: CT - CTHCSPWOC - 08/08/2021 6:27 am CLINICAL HISTORY: Trauma TECHNIQUE: Axial computed tomography images of the head/brain and cervical spine without intravenous contrast. Sagittal and coronal reformatted images were created and reviewed. This CT exam was pe rformed using one or more of the following dose reduction techniques: automated exposure control, a djustment of the mA and/or kV according to patient size, and/or use of iterative reconstruction techn ique. COMPARISON: Head CT dated 01/03/2021, C-spine CT dated 02/05/2017 FINDINGS: Brain: Mild to moderate cerebral atrophy most pronounced in the frontal regions, without significant interval change. 1.5 cm calcified left tentorial lesion most compatible with a meningi elza similar to the prior. No hemorrhage. No significant white matter disease. Ventricles: Unremarkable. No ventriculomegaly. Skull: No acute fracture. Sinuses: Unremarkable as visualized. No acute sinusitis. Mastoid air cells: Unremarkable as visualized. No mastoid effusion. Vertebrae: No acute fracture. Normal alignment. Discs/spinal canal/neural foramina: Moderate multilevel degenerative changes. No critical canal gordo nosis. Soft tissues: Moderate right occipital soft tissue contusion. Vasculature: There is atherosclerotic disease of the internal carotid and vertebral arteries bilate rally. IMPRESSION: 1. No acute intracranial or extra-axial abnormality. 2. No cervical spine injury. 3. Other findings as above. Electronically signed by: Popeye Alejandra MD 08/08/2021 1:59 AM CDT Due to temporary technical issues with the PACS/Fluency reporting system, reports are being signed by the in house radiologists without review as a courtesy to insure prompt reporting. The interpreting radiologist is fully responsible for the content of the report.
== END 2021-08-08 05:18 | disposition home or self-care (01) ==
LOC: ER 00:04
PROC: 0JQ00ZZ Repair Scalp Subcutaneous Tissue and Fascia, Open Approach (ICD-10-PCS; principal; 2021-08-08)
DX: S01.01XA Laceration without foreign body of scalp, initial encounter (principal); W19.XXXA Unspecified fall, initial encounter; G30.9 Alzheimer's disease, unspecified; F02.80 Dementia in other diseases classified elsewhere, unspecified severity, without behavioral disturbance, psychotic disturbance, mood disturbance, and anxiety; F20.9 Schizophrenia, unspecified; I12.9 Hypertensive chronic kidney disease with stage 1 through stage 4 chronic kidney disease, or unspecified chronic kidney disease; N18.30 Chronic kidney disease, stage 3 unspecified; I48.91 Unspecified atrial fibrillation; Z79.01 Long term (current) use of anticoagulants; Z88.0 Allergy status to penicillin; Z88.5 Allergy status to narcotic agent; Z88.7 Allergy status to serum and vaccine; Z88.8 Allergy status to other drugs, medicaments and biological substances; Z95.1 Presence of aortocoronary bypass graft; Z91.02 Food additives allergy status; Z91.048 Other nonmedicinal substance allergy status
CPT/HCPCS: 36415; 70450; 72125; 80048; 80076; 85025; 85610; 85730; 86850; 86900; 86901; 99284

== ENCOUNTER 2021-10-11 09:24 | Emergency (ER) | payer OTHER ==
[2021-10-11 10:06] LABS: Absolute Lymphocytes (CBC) 2.4 K/uL (0.7-4.9); Hematocrit 36.6 % (36.0-45.0); Lymphocytes % 41.4 % (15.3-44.8); MCV 86.9 fL (80-100); MPV 8.8 fL (7.6-11.3); RBC Red Blood Cell Count 4.21 M/uL (3.86-4.86)
--- NOTE | 2021-10-11 10:17 | RAD REPORT ---
EXAM DESCRIPTION: RAD - Chest Single View - 10/11/2021 10:00 am CLINICAL HISTORY: TRAUMA Chest pain. COMPARISON: Chest Single View dated 07/21/2021; Chest Single View dated 02/21/2021; Chest Single View dated 01/03/2021; Chest Single View dated 07/26/2020 FINDINGS: Portable technique limits examination quality. The lungs are grossly clear. The heart is normal in size. Sternotomy wires.Mild lower thoracic dextro scoliosis. IMPRESSION: No acute intrathoracic process suspected.
[2021-10-11 10:27] LABS: Potassium 3.6 mmol/L (3.5-5.1); Troponin High Sensitivity 19.3 pg/mL (<58.9)
--- NOTE | 2021-10-11 10:45 | RAD REPORT ---
EXAM DESCRIPTION: CT - CTHCSPWOC - 10/11/2021 10:27 am CLINICAL HISTORY: Trauma, head and neck injury. fall COMPARISON: Head C Spine Mpr Wo Con dated 08/08/2021; CT HEAD CSPINE MPR WO CONTRAST dated 07/16/2011 TECHNIQUE: Axial 5 mm thick images of the head were obtained. Axial 2 mm thick images of the cervical spine were obtained with sagittal and coronal reconstruction images generated and reviewed. All CT scans are performed using dose optimization technique as appropriate and may include automated exposure control or mA/KV adjustment according to patient size. FINDINGS: CT HEAD WITHOUT CONTRAST: No acute hemorrhage or hydrocephalus is seen. Right frontal 5 mm extra-axial collection has a chronic appearance.Significant brain atrophy noted.No areas of brain edema or midline shift. Calcified lesio n along the left with posterior fossa is unchanged likely benign. The paranasal sinuses and mastoids are clear.The calvarium is intact. CT CERVICAL SPINE WITHOUT CONTRAST: No fracture or subluxation.Mild mid and lower cervical degenerative changes.No prevertebral soft tiss ues swelling is identified. Carotid atherosclerosis on the left noted. IMPRESSION: No acute intracranial or cervical spine findings.
--- NOTE | 2021-10-11 11:06 | ER ---
Nurse's Notes [facility] Name: Silvestre Damico Age: 89 yrs Sex: Female : 1930 Arrival Date: 10/11/2021 Time: 09:33 Bed 3 Private MD: Diagnosis: Fall on same level, unspecified;syncope Presentation: 10/11 09:30 Initial Sepsis Screen: Does the patient meet any 2 criteria? No. Patient's initial jg9 sepsis screen is negative. Does the patient have a suspected source of infection? No. Patient's initial sepsis screen is negative. Risk Assessment: Do you want to hurt yourself or someone else? Patient reports no desire to harm self or others. Note fell today. 09:34 Chief complaint: EMS states: unwitnessed fall, reports dizziness before fall, -Loc, jg9 +thinners, skin tear to upper extremities noted, bodywide pain reported, more in r upper inner arm where bruising and tear is noted. Care prior to arrival: None. Mechanism of Injury: Fall an unknown distance. Trauma event details: Injury occurred: Injury occurred: October 11, 2021. 09:34 Acuity: SUPRIYA 3 jg9 09:34 Method Of Arrival: EMS: [facility] jg9 09:52 Coronavirus screen: Vaccine status:. Ebola Screen: Patient negative for fever greater jg9 than or equal to 101.5 degrees Fahrenheit, and additional compatible Ebola Virus Disease symptoms Patient denies exposure to infectious person. Patient denies travel to an Ebola-affected area in the 21 days before illness onset. 09:54 Onset of symptoms is unknown. jg9 Trauma Activation: Alert Physician: ED Physician; Name: ; Notified At: ; Arrived At: Physician: General Surgeon; Name: ; Notified At: ; Arrived At: Physician: Radiology; Name: ; Notified At: ; Arrived At: Physician: Respiratory; Name: ; Notified At: ; Arrived At: Physician: Lab; Name: ; Notified At: ; Arrived At: Historical: - Allergies: 09:39 Black Pepper; jg9 09:39 Codeine; jg9 09:39 Demerol; jg9 09:39 FLU VACCINE; jg9 09:39 Iodine; jg9 09:39 meperidine; jg9 09:39 PENICILLINS; jg9 09:39 tramadol; jg9 - Home Meds: 09:39 Anusol Rectal [Active]; aspirin 81 mg Oral chew 1 tab once daily [Active]; ClearLax jg9 Oral [Active]; clopidogrel 75 mg Oral tab 1 tab once daily [Active]; Eliquis Oral [Active]; gabapentin Oral [Active]; gabapentin 300 mg Oral cap twice a day [Active]; levocetirizine Oral [Active]; Lidocaine Viscous MM [Active]; losartan Oral [Active]; memantine Oral [Active]; memantine 10mg Oral 1 cap 2 times per day [Active]; metoprolol succinate 50 mg Oral CSpX 1 cap once daily [Active]; pantoprazole Oral [Active]; pravastatin Oral [Active]; pravastatin 40 mg Oral tab 1 tab once daily [Active]; primidone 50 mg Oral tab once daily [Active]; quetiapine Oral [Active]; - PMHx: 09:39 Alzheimer's disease; Atrial fibrillation; chronic kidney disease (stage 3); Dementia; jg9 scoliosis; Schizophrenia; Polio; DYSPHAGIA; High Cholesterol; Hypertension; - PSHx: 09:39 Coronary artery bypass graft; Stented artery; jg9 - Code Status:: Full code. - Immunization history: Last tetanus immunization: unknown. - Social history:: Smoking status: Patient reports the use of cigarette tobacco products, denies chronic smoking, but will smoke occasionally. Screenin:50 Abuse screen: Denies threats or abuse. Denies injuries from another. Tuberculosis jg9 screening: No symptoms or risk factors identified. Fall risk At risk due to age, immobility, prior history of falls. 09:53 Nutritional screening: No deficits noted. jg9 09:53 Fall Risk Fall in past 12 months (25 points). Gait- Weak (10 pts.). Mental Status- jg9 Overestimates/Forgets Limitations (15 pts.). Primary Survey: 09:25 NO uncontrolled hemorrhage observed. A: The client is alert. Airway: patent, Oral jg9 cavity: clear, Trachea midline. Breathing/Chest: Spontaneous respiratory effort, equal unlabored respirations, breath sounds clear bilaterally, regular pattern, symmetrical chest rise and fall. Circulation: No external hemorrhage present. Regular and strong central pulse, skin warm/dry/normal color. Disability Client is alert. Exposure/Environment: A warming method has been applied: A warm blanket has been provided to the patient. 09:54 Reassessment Breathing:. jg9 Secondary Survey: 10:31 HEENT: No deficits noted. Gastrointestinal: No deficits noted. : No deficits noted. jg9 Musculoskeletal: Injury Description: Skin tears sustained to right bicep and back of right arm. Assessment: 09:36 General: Appears in no apparent distress. Behavior is calm, cooperative. Pain: jg9 Complains of pain in head, neck, chest, abdomen, pelvis, right arm, right hand, left arm, left hand, right leg, right foot, left leg, left foot, back of head, back of neck, back of left arm, back of right arm, posterior chest, buttocks, back of left leg, back of right leg, left heel, right heel and back Pain currently is 8 out of 10 on a pain scale. Neuro: Level of Consciousness is awake, Oriented to person, place, hx dementia. Neuro: Reports dizziness, since this morning. EENT: No deficits noted. Cardiovascular: No deficits noted. Respiratory: No deficits noted. GI: No deficits noted. : No deficits noted. Derm: No deficits noted. Musculoskeletal: skin tears to bilateral upper extremities, worse in right anterior upper arm. 10:34 Reassessment: Patient asked what we did that made her feel better and she stated jg9 "EVERYTHING". Patient states feeling better. 11:00 Reassessment: No changes from previously documented assessment. Patient and/or family jg9 updated on plan of care and expected duration. Pain level reassessed. Patient is alert, oriented x 3, equal unlabored respirations, skin warm/dry/pink. Patient states feeling better. Patient states symptoms have improved. Vital Signs: 09:30 BP 142 / 76; Pulse 67; Resp 17 S; Temp 96.7(TE); Pulse Ox 100% on R/A; Weight 68.04 kg jg9 (R); Height 5 ft. 5 in. (165.10 cm) (R); Pain 8/10; 10:25 BP 149 / 65; Pulse 66; Resp 20 S; Pulse Ox 95% on R/A; jg9 11:00 BP 105 / 87; Pulse 68; Resp 18 S; Pulse Ox 98% on R/A; jg9 09:30 Body Mass Index 24.96 (68.04 kg, 165.10 cm) jg9 Morrow Coma Score: 09:25 Eye Response: spontaneous(4). Verbal Response: confused(4). Motor Response: obeys jg9 commands(6). Total: 14. 09:25 hx dementia/alzheimers jg9 Trauma Score (Adult): 09:25 Eye Response: spontaneous(1); Verbal Response: confused(1); Motor Response: obeys jg9 commands(2); Systolic BP: > 89 mm Hg(4); Respiratory Rate: 10 to 29 per min(4); Morrow Score: 14; Trauma Score: 12; hx dementa/allzheimers ED Course: 09:25 Patient maintains SpO2 saturation greater than 95% on room air. jg9 09:30 Arm band placed on right wrist. jg9 09:33 Patient arrived in ED. jg9 09:34 Kelli Avalos RN is Primary Nurse. jg9 09:34 Nigel Woo DO is Attending Physician. ms3 09:36 Triage completed. jg9 09:38 EKG done, by ED staff, reviewed by Nigel Woo DO. jw7 09:40 Inserted saline lock: 22 gauge in right antecubital area, using aseptic technique. jg9 Blood collected. 09:50 Patient has correct armband on for positive identification. Bed in low position. Call jg9 light in reach. Side rails up X2. 10:02 XRAY Chest (1 view) In Process Unspecified. EDMS 10:19 CT Head C Spine In Process Unspecified. EDMS 10:33 Pt visited by daughter. jg9 10:33 Thermoregulation: warm blanket given to patient. jg9 11:32 No provider procedures requiring assistance completed. jg9 11:35 IV discontinued. jg9 Administered Medications: 11:21 Drug: Nicotine Patch 7 mg/24 hr 1 patches Route: Transdermal; Site: affected area; jg9 11:39 Follow up: Response: No adverse reaction; Medication administered at discharge. jg9 Medication: 11:33 VIS not applicable for this client. jg9 Intake: 11:33 PO: 0ml; IV: 0ml; Tubes: 0ml (); Total: 0ml. jg9 10:35 large BM jg9 Output: 10:35 Stool: 1 (Loose Stool) ; Total: 0ml. jg9 10:35 large BM jg9 Outcome: 11:05 Discharge ordered by . ms3 11:32 Discharged to home via wheelchair. jg9 11:32 Condition: stable 11:32 Discharge instructions given to patient, Instructed on discharge instructions, Demonstrated understanding of instructions, follow-up care. 11:35 Patient's length of stay was not longer than 2 hours. jg9 11:39 Patient left the ED. jg9 Signatures: Dispatcher [employer] EDMS Nigel Woo DO DO ms3 Kelli Avalos, RN RN jg9 Jodie [id number]
--- NOTE | 2021-10-11 11:06 | EDPHYS ---
Physician Documentation [facility] Name: Silvestre Damico Age: 89 yrs Sex: Female : 1930 Arrival Date: 10/11/2021 Time: 09:33 Bed 3 Private MD: ED Physician Nigel Woo HPI: 10/11 11:08 This 89 yrs old Female presents to ER via EMS with complaints of Fall Injury. ms3 11:05 Details of fall: The patient fell from an upright position, while walking. Onset: The ms3 symptoms/episode began/occurred just prior to arrival. 11:08 Associated injuries: The patient sustained Bilateral arms. Severity of symptoms: At ms3 their worst the symptoms were moderate, in the emergency department the symptoms are unchanged. Historical: - Allergies: 09:39 Black Pepper; jg9 09:39 Codeine; jg9 09:39 Demerol; jg9 09:39 FLU VACCINE; jg9 09:39 Iodine; jg9 09:39 meperidine; jg9 09:39 PENICILLINS; jg9 09:39 tramadol; jg9 - Home Meds: 09:39 Anusol Rectal [Active]; aspirin 81 mg Oral chew 1 tab once daily [Active]; ClearLax jg9 Oral [Active]; clopidogrel 75 mg Oral tab 1 tab once daily [Active]; Eliquis Oral [Active]; gabapentin Oral [Active]; gabapentin 300 mg Oral cap twice a day [Active]; levocetirizine Oral [Active]; Lidocaine Viscous MM [Active]; losartan Oral [Active]; memantine Oral [Active]; memantine 10mg Oral 1 cap 2 times per day [Active]; metoprolol succinate 50 mg Oral CSpX 1 cap once daily [Active]; pantoprazole Oral [Active]; pravastatin Oral [Active]; pravastatin 40 mg Oral tab 1 tab once daily [Active]; primidone 50 mg Oral tab once daily [Active]; quetiapine Oral [Active]; - PMHx: 09:39 Alzheimer's disease; Atrial fibrillation; chronic kidney disease (stage 3); Dementia; jg9 scoliosis; Schizophrenia; Polio; DYSPHAGIA; High Cholesterol; Hypertension; - PSHx: 09:39 Coronary artery bypass graft; Stented artery; jg9 - Code Status:: Full code. - Immunization history: Last tetanus immunization: unknown. - Social history:: Smoking status: Patient reports the use of cigarette tobacco products, denies chronic smoking, but will smoke occasionally. ROS: 11:08 Constitutional: Negative for fever, and chills. Neck: Negative for injury, pain, and ms3 swelling, Cardiovascular: Negative for chest pain, and palpitations. Respiratory: Negative for shortness of breath, cough, wheezing, and pleuritic chest pain, Abdomen/GI: Negative for abdominal pain, nausea, vomiting, diarrhea, and constipation, MS/Extremity: pain all over her body Skin: skin tears on bilateral arms Neuro: Negative for headache, weakness, numbness, tingling. 11:08 All other systems are negative. Exam: 09:37 ECG was reviewed by the Attending Physician. ms3 11:08 Constitutional: This is a well developed, well nourished patient who is awake, alert, ms3 and in no acute distress. Head/Face: Normocephalic, atraumatic. Neck: Trachea midline, no cervical lymphadenopathy. Supple, full range of motion without nuchal rigidity, or vertebral point tenderness. No Meningismus. Chest/axilla: Normal chest wall appearance and motion. Nontender with no deformity. Cardiovascular: Regular rate and rhythm with a normal S1 and S2. No gallops, murmurs, or rubs. Normal PMI, no JVD. No pulse deficits. Respiratory: Lungs have equal breath sounds bilaterally, clear to auscultation and percussion. No rales, rhonchi or wheezes noted. No increased work of breathing, no retractions or nasal flaring. Abdomen/GI: Soft, non-tender, with normal bowel sounds. No distension or tympany. No guarding or rebound. No evidence of tenderness throughout. Psych: Awake, alert, with orientation to person, place and time. Behavior, mood, and affect are within normal limits. 11:08 Skin: injury, skin tears of bilateral upper extremities. Vital Signs: 09:30 BP 142 / 76; Pulse 67; Resp 17 S; Temp 96.7(TE); Pulse Ox 100% on R/A; Weight 68.04 kg jg9 (R); Height 5 ft. 5 in. (165.10 cm) (R); Pain 8/10; 10:25 BP 149 / 65; Pulse 66; Resp 20 S; Pulse Ox 95% on R/A; jg9 11:00 BP 105 / 87; Pulse 68; Resp 18 S; Pulse Ox 98% on R/A; jg9 09:30 Body Mass Index 24.96 (68.04 kg, 165.10 cm) jg9 [place] Coma Score: 09:25 Eye Response: spontaneous(4). Verbal Response: confused(4). Motor Response: obeys jg9 commands(6). Total: 14. 09:25 hx dementia/alzheimers jg9 Trauma Score (Adult): 09:25 Eye Response: spontaneous(1); Verbal Response: confused(1); Motor Response: obeys jg9 commands(2); Systolic BP: > 89 mm Hg(4); Respiratory Rate: 10 to 29 per min(4); [place] Score: 14; Trauma Score: 12; hx dementa/allzheimers MDM: 09:34 Patient medically screened. ms3 11:03 ED course: Patient's daughter at bedside stating that patient has had this occur ms3 multiple times and patient has seen Cardiology and PMD for this. She would like patient discharged back to the nursing facility. 11:05 Differential diagnosis: abrasion, closed head injury, contusion, fracture, sprain, ms3 strain. Data reviewed: vital signs, nurses notes, lab test result(s), EKG, radiologic studies, and as a result, I will discharge patient. Data interpreted: satellite project site monitor: rate is 70 beats/min, rhythm is normal sinus rhythm, regular, with no ectopy, Interpretation: normal rate, normal rhythm, Pulse oximetry: on room air is 98 %. Interpretation: normal. Counseling: I had a detailed discussion with the patient and/or guardian regarding: the historical points, exam findings, and any diagnostic results supporting the discharge/admit diagnosis, lab results, radiology results, the need for outpatient follow up, to return to the emergency department if symptoms worsen or persist or if there are any questions or concerns that arise at home. 10/11 09:34 Order name: Basic Metabolic Panel; Complete Time: 10:47 ms3 10/11 09:34 Order name: CBC with Diff; Complete Time: 10:47 ms3 10/11 09:34 Order name: Troponin HS; Complete Time: 10:47 ms3 10/11 09:34 Order name: XRAY Chest (1 view); Complete Time: 10:47 ms3 10/11 09:34 Order name: CT Head C Spine; Complete Time: 10:47 ms3 10/11 09:34 Order name: EKG; Complete Time: 09:35 ms3 10/11 09:34 Order name: Cardiac monitoring; Complete Time: 09:38 ms3 10/11 09:34 Order name: EKG - Nurse/Tech; Complete Time: 09:38 ms3 10/11 09:34 Order name: IV Saline Lock; Complete Time: 10:44 ms3 10/11 09:34 Order name: Labs collected and sent; Complete Time: 10:44 ms3 10/11 09:34 Order name: O2 Sat Monitoring; Complete Time: 10:44 ms3 EC:37 Rate is 70 beats/min. Rhythm is regular. QRS Dodge is Normal. Clinical impression: NSR ms3 with RBBB. Interpreted by me. Reviewed by me. Administered Medications: 11:21 Drug: Nicotine Patch 7 mg/24 hr 1 patches Route: Transdermal; Site: affected area; jg9 11:39 Follow up: Response: No adverse reaction; Medication administered at discharge. jg9 Disposition Summary: 10/11/21 11:05 Discharge Ordered Location: Home ms3 Condition: Stable ms3 Diagnosis - Fall on same level, unspecified ms3 - syncope ms3 Followup: ms3 - With: Private Physician - When: 1 - 2 days - Reason: Re-evaluation by your physician Discharge Instructions: - Discharge Summary Sheet ms3 - Syncope ms3 - Smoking Tobacco Information, Adult ms3 Forms: - Medication Reconciliation Form ms3 - Thank You Letter ms3 - Antibiotic Education ms3 - Prescription Opioid Use ms3 Signatures: Dispatcher [employer] EDMS Nigel Woo DO DO ms3 Kelli Avalos RN RN jg9 Corrections: (The following items were deleted from the chart) 10:03 09:58 Chest Single View ordered. EDMS EDMS 11:09 09:34 Oxygen Per Protocol ordered. ms3 jg9
[2021-10-11] MEDS ORDERED: NICOTINE 21 MG/PAT TD ONE (11:08)
[2021-10-11] MEDS ORDERED: NICOTINE 7 MG/PAT TD ONE (11:15)
[2021-10-11 11:47] VITALS: TEMP 96.7
[2021-10-11 11:50] VITALS: BP 105/87; O2SAT 98
--- NOTE | 2021-10-12 08:50 | EKG ---
Test Date: 2021-10-11 Test Time: 09:37:25 Senior Site Manager: PANCHITO MEASUREMENT RESULTS: Intervals: Rate: 70 TX: 160 QRSD: 122 QT: 428 QTc: 462 Mclaughlin: P: 58 TX: 160 QRS: 52 T: 52 INTERPRETIVE STATEMENTS: Sinus rhythm with occasional premature ventricular complexes Right bundle branch block Abnormal ECG Compared to ECG 07/21/2021 12:51:03 Sinus bradycardia no longer present Electronically Signed On 10-12-21 08:47:08 CDT by Dhiraj Ramos
== END 2021-10-11 11:39 | disposition home or self-care (01) ==
LOC: ER 09:24
DX: R55 Syncope and collapse (principal); S41.112A Laceration without foreign body of left upper arm, initial encounter; S41.111A Laceration without foreign body of right upper arm, initial encounter; W18.30XA Fall on same level, unspecified, initial encounter; I12.9 Hypertensive chronic kidney disease with stage 1 through stage 4 chronic kidney disease, or unspecified chronic kidney disease; N18.9 Chronic kidney disease, unspecified; G30.9 Alzheimer's disease, unspecified; F02.80 Dementia in other diseases classified elsewhere, unspecified severity, without behavioral disturbance, psychotic disturbance, mood disturbance, and anxiety; I48.91 Unspecified atrial fibrillation; Z79.82 Long term (current) use of aspirin; Z88.0 Allergy status to penicillin; Z88.5 Allergy status to narcotic agent; Z88.7 Allergy status to serum and vaccine; Z88.8 Allergy status to other drugs, medicaments and biological substances; Z91.018 Allergy to other foods; Z91.048 Other nonmedicinal substance allergy status
CPT/HCPCS: 36415; 70450; 71045; 72125; 80048; 84484; 85025; 93005

== ENCOUNTER 2022-02-17 07:28 | Emergency (ER) | payer OTHER ==
[2022-02-17 08:04] LABS: Hematocrit 30.9 % (36.0-45.0); Lymphocytes % 25.9 % (15.3-44.8); MCV 86.7 fL (80-100); MPV 8.3 fL (7.6-11.3); RBC Red Blood Cell Count 3.56 M/uL (3.86-4.86)
--- NOTE | 2022-02-17 08:13 | RAD REPORT ---
EXAM DESCRIPTION: CT - Head C Spine Cap Wo Con - 02/17/2022 7:53 am CLINICAL HISTORY: Trauma, head and neck injury. Chest, abdomen and pelvis pain. fall COMPARISON: No comparisonsNo comparisons TECHNIQUE: CT head without contrast. CT cervical spine without contrast with coronal and sagittal reformatted images. CT chest, abdomen and pelvis with coronal and sagittal reformatted images of the spine. All CT scans are performed using dose optimization technique as appropriate and may include automated exposure control or mA/KV adjustment according to patient size. FINDINGS: CT HEAD WITHOUT CONTRAST: No intracranial hemorrhage, hydrocephalus or extra-axial fluid collection. No acute large vascular te rritory infarct. 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 The paranasal sinuses and mastoids are clear. The calvarium is intact. CT CERVICAL SPINE WITHOUT CONTRAST: No fracture or subluxation. The prevertebral soft tissues are normal in thickness.Carotid artery calcifications. Multilevel degen erative changes are present in the spine. Varying degrees of neural foraminal narrowing. Mild central spinal stenosis is present at the C5-[address] CHEST, ABDOMEN, PELVIS: Thorax: Chest Wall: No abnormal mass Lungs: Mild dependent atelectasis. Pleura: No effusions or pneumothorax. Anjana/Mediastinum: No lymphadenopathy. Moderate hiatal hernia. Aorta/Pulmonary Arteries: Unremarkable Heart: Normal size. Multi-vessel coronary artery disease. Sternotomy. Abdomen/Pelvis: Liver: No acute abnormality or suspicious lesions. Biliary: Cholecystectomy Stomach: No significant focal abnormality. Duodenum: No significant focal abnormality. Pancreas: No significant abnormality. Spleen: No significant abnormality. Adrenal: No suspicious lesions. Kidney/ureter: No hydronephrosis. Renal vascular calcifications. Retroperitoneum: No retroperitoneal adenopathy. Vascular: No aneurysm. Atherosclerosis. Bowel: No significant focal abnormality. Peritoneum: No ascites or free air. Bladder: Grossly unremarkable. Reproductive: No adnexal masses. Hysterectomy Bones: Chronic appearing compression fractures at T1, T7, T9, and L4. These have less than 20% loss o f height and no bony retropulsion. Sternotomy. Other: n/a IMPRESSION: 1. Negative for acute traumatic findings in the chest, abdomen, or pelvis. Thoracic and lumbar compression fractures are favored chronic. 2. No acute intracranial abnormality. 3. No fracture or traumatic malalignment of the cervical spine.
[2022-02-17 08:25] LABS: Potassium 3.7 mmol/L (3.5-5.1)
--- NOTE | 2022-02-17 09:39 | ER ---
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 No LOC, ll1 yelled for help. Trauma alert called when EMS pulled up. +head injury on eliquis. L shoulder and R hip pain. Coronavirus screen: Vaccine status: Patient reports receiving the 2nd dose of the covid vaccine. Client denies travel out of the [place] in the last 14 days. At this time, the client does not indicate any symptoms associated with coronavirus-19. Ebola Screen: Patient denies travel to an Ebola-affected area in the 21 days before illness onset. 07:31 Method Of Arrival: EMS ll1 07:35 Initial Sepsis Screen: Does the patient meet any 2 criteria? No. Patient's initial ll1 sepsis screen is negative. Does the patient have a suspected source of infection? Yes: Skin breakdown/wound Bone or joint infection. Risk Assessment: Do you want to hurt yourself or someone else? Patient reports no desire to harm self or others. Onset of symptoms was February 17, 2022. 07:35 Acuity: SUPRIYA 2 ll1 07:42 Care prior to arrival: c-collar, fingerstick 131, 18 G L AC. Mechanism of Injury: Crush ll1 injury. Trauma event details: Injury occurred in the [facility]. Trauma Activation: Alert Physician: ED Physician; Name: marcelino; Notified At: 07:30; Arrived At: 07:30 Physician: General Surgeon; Name: ; Notified At: 07:30; Arrived At: Specialty not needed Physician: Radiology; Name: CT; Notified At: 07:30; Arrived At: 07:31 Physician: Respiratory; Name: ; Notified At: 07:30; Arrived At: Specialty not needed Physician: Lab; Name: ; Notified At: 07:30; Arrived At: Specialty not needed Trauma Activation: Alert Physician: ED Physician; Name: ; Notified At: ; Arrived At: Physician: General Surgeon; Name: ; Notified At: ; Arrived At: Physician: Radiology; Name: ; Notified At: ; Arrived At: Physician: Respiratory; Name: ; Notified At: ; Arrived At: Physician: Lab; Name: ; Notified At: ; Arrived At: Historical: - Allergies: 07:35 Black Pepper; ll1 07:35 Codeine; ll1 07:35 Demerol; ll1 07:35 FLU VACCINE; ll1 07:35 Iodine; ll1 07:35 meperidine; ll1 07:35 PENICILLINS; ll1 07:35 tramadol; ll1 - PMHx: 07:35 Dementia; Hypertension; High Cholesterol; DYSPHAGIA; Atrial fibrillation; ll1 Schizophrenia; chronic kidney disease (stage 3); Alzheimer's disease; scoliosis; Polio; Depressive disorder; - PSHx: 07:35 Coronary artery bypass graft; Stented artery; ll1 - Immunization history:: Client reports receiving the 2nd dose of the Covid vaccine. - Social history:: Smoking status: Patient denies any tobacco usage or history of. - Immunization history: Last tetanus immunization: unknown. Screenin:48 Abuse screen: Denies threats or abuse. Nutritional screening: No deficits noted. ll1 Tuberculosis screening: No symptoms or risk factors identified. Fall Risk Fall in past 12 months (25 points). Secondary diagnosis (15 points) dementia, IV access (20 points). Gait- Impaired (20 pts.). Mental Status- Overestimates/Forgets Limitations (15 pts.). Total Woo Fall Scale indicates High Risk Score (45 or more points). Fall prevention measures have been instituted. Side Rails Up X 2 Placed Close to Nursing Station Frequent Obs/Assessments Occuring As available patient and family educated on Fall Prevention Program and Strategies. Primary Survey: 07:35 Exposure/Environment: There is no evidence of uncontrolled external bleeding. A warming ll1 method has been applied: A warm blanket has been provided to the patient. 07:47 NO uncontrolled hemorrhage observed. A: The client is awake and alert. The airway is ll1 patent. Breathing/Chest: Spontaneous respiratory effort, equal unlabored respirations, breath sounds clear bilaterally, regular pattern, symmetrical chest rise and fall. Circulation: No external hemorrhage present. Regular and strong central pulse, skin warm/dry/normal color. Pulses: palpable right radial artery and left radial artery. Disability Pupils are equal, round, reactive to light and accommodation. Client is alert. 10:06 Reassessment Breathing: Spontaneous respiratory effort, equal unlabored respirations, ll1 breath sounds clear bilaterally, regular pattern with symmetrical chest rise and fall. Secondary Survey: 07:36 HEENT: Head Other hematoma, small laceration. Musculoskeletal: Circulation, motion, and ll1 sensation intact. Capillary refill < 3 seconds, Reports pain in L shoulder, R hip. Assessment: 07:46 General: Appears uncomfortable, Behavior is cooperative, appropriate for age. Pain: ll1 Complains of pain in L shoulder, R hip Quality of pain is described as aching. Neuro: Reports hematoma, small laceration to back of head. Musculoskeletal: Reports pain in L shoulder and R hip. Injury Description: Head injury Crush injury. 08:05 Reassessment: No changes from previously documented assessment. Patient and/or family ll1 updated on plan of care and expected duration. Pain level reassessed. 09:00 Reassessment: No changes from previously documented assessment. Patient and/or family ll1 updated on plan of care and expected duration. Pain level reassessed. c-collar removed. PMS intact to all extremities pre and post c-collar removal. Tolerated well. 10:00 Reassessment: No changes from previously documented assessment. Patient and/or family ll1 updated on plan of care and expected duration. Pain level reassessed. Patient is alert, oriented x 3, equal unlabored respirations, skin warm/dry/pink. Vital Signs: 07:31 BP 125 / 60; Pulse 81; Resp 18; Temp 97.9(O); Pulse Ox 100% on R/A; Weight 64.41 kg ll1 (M); Pain 6/10; 08:50 BP 103 / 75; Pulse 73; Resp 17; Temp 97.9; Pulse Ox 98% on R/A; ll1 09:38 BP 123 / 64; Pulse 74; Pulse Ox 100% on R/A; ll1 [place] Coma Score: 07:48 Eye Response: spontaneous(4). Verbal Response: confused(4). Motor Response: obeys ll1 commands(6). Total: 14. Trauma Score (Adult): 07:48 Eye Response: spontaneous(1); Verbal Response: confused(1); Motor Response: obeys ll1 commands(2); Systolic BP: > 89 mm Hg(4); Respiratory Rate: 10 to 29 per min(4); [place] Score: 14; Trauma Score: 12 ED Course: 07:31 Patient arrived in ED. kj1 07:31 Collins Antonio RN is Primary Nurse. ll1 07:35 Triage completed. ll1 07:36 Nigel Marcelino DO is Attending Physician. ms3 07:37 Arm band placed on Patient placed in an exam room, on a stretcher. ll1 07:37 No provider procedures requiring assistance completed. Maintain EMS IV. Dressing ll1 intact. Gauge \T\ site: 18 L AC. IV discontinued, intact, bleeding controlled, No redness/swelling at site. Pressure dressing applied. 07:40 Initial lab(s) drawn, by me, sent to lab. Inserted saline lock: 20 gauge in left tw5 antecubital area, using aseptic technique. Blood collected. 07:41 Patient has correct armband on for positive identification. Placed in gown. Bed in low tw5 position. Call light in reach. Side rails up X2. Client placed on continuous cardiac and pulse oximetry monitoring. NIBP monitoring applied. Door closed. Noise minimized. Lights dimmed. Warm blanket given. Verbal reassurance given. 07:49 Patient maintains SpO2 saturation greater than 95% on room air. Thermoregulation: warm ll1 blanket given to patient. 07:53 Head C Spine Cap Wo Con In Process Unspecified. EDMS 10:06 IV discontinued, intact, bleeding controlled, No redness/swelling at site. Pressure ll1 dressing applied. Administered Medications: No medications were administered Medication: 10:07 VIS not applicable for this client. ll1 Intake: 10:06 PO: 10ml; Total: 10ml. ll1 Output: 10:06 Urine: 0ml; Total: 0ml. ll1 Outcome: 09:38 Discharge ordered by . ms3 10:06 Discharged to home via wheelchair, with family. ll1 10:06 Condition: stable 10:06 Discharge instructions given to patient, family, Instructed on discharge instructions, follow up and referral plans. Demonstrated understanding of instructions, follow-up care. 10:07 Patient's length of stay was not longer than 2 hours. ll1 10:08 Patient left the ED. ll1 Signatures: Dispatcher [employer] EDMS Dunia Barber kj1 Collins Antonio, RN RN ll1 Nigel Marcelino DO DO ms3 Teri Wesley tw5 Corrections: (The following items were deleted from the chart) 07:38 07:31 Pulse 81bpm; Resp 18bpm; Pulse Ox 100% RA; 64.41 kg Measured; Pain 6/10; ll1 ll1
--- NOTE | 2022-02-17 09:39 | EDPHYS ---
Physician Documentation [facility] Name: Silvestre Damico Age: 89 yrs Sex: Female : 1930 Arrival Date: 02/17/2022 Time: 07:31 Bed 7 Private MD: ED Physician Nigel Woo HPI: 02/17 07:58 This 89 yrs old Female presents to ER via EMS with complaints of Closed Head ms3 Injury-Adult, Fall Injury, Blunt Trauma. 07:58 Details of fall: The patient fell from an upright position, while standing. Onset: The ms3 symptoms/episode began/occurred just prior to arrival. Associated injuries: The patient sustained injury to the head, contusion, Left shoulder, painful injury. Severity of symptoms: At their worst the symptoms were moderate, in the emergency department the symptoms are unchanged. Per [facility] patient was standing and when she began to fall grabbed her dresser pulling her dresser and a 32 inch television onto herself.. Historical: - Allergies: 07:35 Black Pepper; ll1 07:35 Codeine; ll1 07:35 Demerol; ll1 07:35 FLU VACCINE; ll1 07:35 Iodine; ll1 07:35 meperidine; ll1 07:35 PENICILLINS; ll1 07:35 tramadol; ll1 - PMHx: 07:35 Dementia; Hypertension; High Cholesterol; DYSPHAGIA; Atrial fibrillation; ll1 Schizophrenia; chronic kidney disease (stage 3); Alzheimer's disease; scoliosis; Polio; Depressive disorder; - PSHx: 07:35 Coronary artery bypass graft; Stented artery; ll1 - Immunization history:: Client reports receiving the 2nd dose of the Covid vaccine. - Social history:: Smoking status: Patient denies any tobacco usage or history of. - Immunization history: Last tetanus immunization: unknown. ROS: 07:58 Constitutional: Negative for fever, and chills. Neck: Negative for injury, pain, and ms3 swelling, Cardiovascular: Negative for chest pain, and palpitations. Respiratory: Negative for shortness of breath, cough, wheezing, and pleuritic chest pain, Abdomen/GI: Negative for abdominal pain, nausea, vomiting, diarrhea, and constipation. 07:58 Skin: Positive for contusion. 07:58 All other systems are negative. Exam: 07:58 Constitutional: This is a well developed, well nourished patient who is awake, alert, ms3 and in no acute distress. Neck: Trachea midline, no cervical lymphadenopathy. Supple, full range of motion without nuchal rigidity, or vertebral point tenderness. No Meningismus. Chest/axilla: Normal chest wall appearance and motion. Nontender with no deformity. Cardiovascular: Regular rate and rhythm with a normal S1 and S2. No gallops, murmurs, or rubs. Normal PMI, no JVD. No pulse deficits. Respiratory: Lungs have equal breath sounds bilaterally, clear to auscultation and percussion. No rales, rhonchi or wheezes noted. No increased work of breathing, no retractions or nasal flaring. Abdomen/GI: Soft, non-tender, with normal bowel sounds. No distension or tympany. No guarding or rebound. No evidence of tenderness throughout. 07:58 Head/face: Noted is contusion, that is superficial, of the forehead. 07:58 Musculoskeletal/extremity: Extremities: noted in the left shoulder: pain. 07:58 Skin: contusion to forehead. Vital Signs: 07:31 BP 125 / 60; Pulse 81; Resp 18; Temp 97.9(O); Pulse Ox 100% on R/A; Weight 64.41 kg ll1 (M); Pain 6/10; 08:50 BP 103 / 75; Pulse 73; Resp 17; Temp 97.9; Pulse Ox 98% on R/A; ll1 09:38 BP 123 / 64; Pulse 74; Pulse Ox 100% on R/A; ll1 Chantale Coma Score: 07:48 Eye Response: spontaneous(4). Verbal Response: confused(4). Motor Response: obeys ll1 commands(6). Total: 14. Trauma Score (Adult): 07:48 Eye Response: spontaneous(1); Verbal Response: confused(1); Motor Response: obeys ll1 commands(2); Systolic BP: > 89 mm Hg(4); Respiratory Rate: 10 to 29 per min(4); Chantale Score: 14; Trauma Score: 12 MDM: 07:36 Patient medically screened. ms3 07:58 Differential diagnosis: closed head injury, contusion, fracture, sprain, strain. ms3 09:38 Data reviewed: vital signs, nurses notes, lab test result(s), radiologic studies, CT ms3 scan, and as a result, I will discharge patient. Data interpreted: nurse monitoring: rate is 74 beats/min, rhythm is normal sinus rhythm, with no ectopy, Interpretation: normal rate, normal rhythm. Counseling: I had a detailed discussion with the patient and/or guardian regarding: the historical points, exam findings, and any diagnostic results supporting the discharge/admit diagnosis, lab results, radiology results, the need for outpatient follow up, to return to the emergency department if symptoms worsen or persist or if there are any questions or concerns that arise at home. ED course: Discussed CT scan findings with patient. Patient follow-up with her primary care physician in 2 to 3 days. Patient understands agrees with plan. All questions were answered. Return precautions discussed include worsening symptoms, or any other concerns. On reevaluation patient is alert, in no apparent distress, nontoxic appearing. 02/17 07:41 Order name: Basic Metabolic Panel; Complete Time: 08:44 ms3 02/17 07:41 Order name: CBC with Diff; Complete Time: 08:44 ms3 02/17 07:41 Order name: Type And Screen; Complete Time: 09:28 ms3 02/17 07:41 Order name: Labs collected and sent; Complete Time: 07:41 ms3 02/17 07:53 Order name: Head C Spine Cap Wo Con; Complete Time: 08:44 EDMS Administered Medications: No medications were administered Disposition Summary: 02/17/22 09:38 Discharge Ordered Location: Home ms3 Condition: Stable ms3 Diagnosis - Fall on same level, unspecified ms3 - Contusion of other part of head ms3 - Anemia, unspecified ms3 - Elevated Creatinine ms3 Followup: ms3 - With: Private Physician - When: 2 - 3 days - Reason: Recheck today's complaints Discharge Instructions: - Discharge Summary Sheet ms3 - Anemia ms3 - Fall Prevention in the Home, Adult ms3 - Contusion, [id number] ms3 Forms: - Medication Reconciliation Form ms3 - Thank You Letter ms3 - Antibiotic Education ms3 - Prescription Opioid Use ms3 Signatures: Dispatcher [employer] EDCollins Smith RN RN ll1 Nigel Woo DO DO ms3
[2022-02-17 10:13] VITALS: TEMP 97.9
[2022-02-17 10:15] VITALS: BP 123/64; O2SAT 100
== END 2022-02-17 10:08 | disposition home or self-care (01) ==
LOC: ER 07:28
DX: S00.83XA Contusion of other part of head, initial encounter (principal); D64.9 Anemia, unspecified; R79.89 Other specified abnormal findings of blood chemistry; W18.30XA Fall on same level, unspecified, initial encounter; I10 Essential (primary) hypertension; G30.9 Alzheimer's disease, unspecified; F02.80 Dementia in other diseases classified elsewhere, unspecified severity, without behavioral disturbance, psychotic disturbance, mood disturbance, and anxiety; Z95.1 Presence of aortocoronary bypass graft; Z88.0 Allergy status to penicillin; Z88.5 Allergy status to narcotic agent; Z88.7 Allergy status to serum and vaccine; Z88.8 Allergy status to other drugs, medicaments and biological substances; Z91.018 Allergy to other foods
CPT/HCPCS: 36415; 70450; 71250; 72125; 80048; 85025; 86850; 86900; 86901; 99284

== ENCOUNTER 2022-04-21 18:21 | Emergency (ER) | payer OTHER ==
[2022-04-21 19:24] LABS: Absolute Lymphocytes (CBC) 1.6 K/uL (0.7-4.9); Hematocrit 25.5 % (36.0-45.0); Lymphocytes % 33.5 % (15.3-44.8); RBC Red Blood Cell Count 3.03 M/uL (3.86-4.86)
--- NOTE | 2022-04-21 19:40 | RAD REPORT ---
EXAM DESCRIPTION: CT - Head Brain Wo Cont - 04/21/2022 7:32 pm CLINICAL HISTORY: Alteration of awareness/confusion COMPARISON: 2020 TECHNIQUE: Computed axial tomography of the head was obtained. IV contrast was not requested. All CT scans are performed using dose optimization technique as appropriate and may include automated exposure control or mA/KV adjustment according to patient size. FINDINGS: An intracranial bleed is not seen . The ventricles are normal in caliber. No extra-axial fluid collection is noted. Left tentorium meningioma unchanged. No surrounding edema. Fluid within the sinuses/ mastoids is not seen. Chronic sphenoid sinusitis IMPRESSION: No acute intracranial abnormality is seen. If patient's symptoms persist MRI of the bra in would be recommended.
[2022-04-21 19:41] LABS: Albumin 2.6 g/dL (3.4-5.0); Bilirubin Total 0.3 mg/dL (0.2-1.0); Potassium 3.2 mmol/L (3.5-5.1); Protein, Total 5.7 g/dL (6.4-8.2)
--- NOTE | 2022-04-21 19:48 | RAD REPORT ---
EXAM DESCRIPTION: CT - CT-ABD PELVIS W/O CONTRAST - 04/21/2022 7:31 pm CLINICAL HISTORY: Abdominal pain COMPARISON: None TECHNIQUE: Computed axial tomography of the abdomen and pelvis was obtained. IV was not requested. O ral contrast was not given. All CT scans are performed using dose optimization technique as appropriate and may include automated exposure control or mA/KV adjustment according to patient size. FINDINGS: The evaluation of solid organs, bowel and vessels is limited secondary to the lack of con trast administration. Moderate to large hiatal hernia Hepatic and splenic granulomata Pancreas and adrenals grossly normal. Left renal cortical thinning perhaps secondary to prior inflammation. Right kidney grossly normal. Atherosclerosis. Hysterectomy. No adnexal mass. No evidence of diverticulitis IMPRESSION: No acute abnormality is displayed.
[2022-04-21 20:35] LABS: Urine Blood Negative (Negative); Urine Glucose Negative (Negative); Urine Protein Negative (Negative)
[2022-04-21 20:45] LABS: Renal Epithelial <5 /HPF (None Seen); Transitional Epithelial <5 /HPF (None Seen); Urine Bacteria None Seen /HPF (<20); Urine Mucus Slight /HPF (None Seen); Urine RBC None Seen /HPF (None Seen)
[2022-04-21 21:27] LABS: SARS-CoV-2 Antigen Rapid Res Negative (Negative)
[2022-04-21] MEDS ORDERED: POTASSIUM CL SA 10 MEQ TAB PO ONE (21:49)
--- NOTE | 2022-04-21 22:12 | RAD REPORT ---
EXAM DESCRIPTION: RAD - Humerus Left - 04/21/2022 9:56 pm CLINICAL HISTORY: Left arm pain status post fall FINDINGS: No fracture is seen. Osteoporosis
--- NOTE | 2022-04-21 22:13 | RAD REPORT ---
EXAM DESCRIPTION: RAD - Forearm Left - 04/21/2022 9:56 pm CLINICAL HISTORY: Left forearm pain status post injury FINDINGS: Plate and screws affix an old radial fracture. No acute fracture seen
--- NOTE | 2022-04-21 22:28 | ER ---
Nurse's Notes [facility] Name: Silvestre Damico Age: 89 yrs Sex: Female : 1930 Arrival Date: 04/21/2022 Time: 18:50 Bed 3 Private MD: Diagnosis: GI Bleed/ Gastrointestinal hemorrhage, unspecified Presentation: 04/21 18:57 Chief complaint: Patient states: one episode one black tarry stools today. VS stable. ss Pt c/o abd pain. HX of frequent falls. Also c/o tenderness to L arm. Coronavirus screen: Client denies travel out of the [place] in the last 14 days. Ebola Screen: Patient denies exposure to infectious person. Patient denies travel to an Ebola-affected area in the 21 days before illness onset. Initial Sepsis Screen: Does the patient meet any 2 criteria? No. Patient's initial sepsis screen is negative. Does the patient have a suspected source of infection? No. Patient's initial sepsis screen is negative. Risk Assessment: Do you want to hurt yourself or someone else? Patient reports no desire to harm self or others. Onset of symptoms was April 21, 2022. 18:57 Method Of Arrival: EMS: [facility] ss 18:57 Acuity: SUPRIYA 3 ss Historical: - Allergies: 19:00 Black Pepper; ss 19:00 Codeine; ss 19:00 Demerol; ss 19:00 FLU VACCINE; ss 19:00 Iodine; ss 19:00 meperidine; ss 19:00 PENICILLINS; ss 19:00 tramadol; ss - PMHx: 19:00 chronic kidney disease (stage 3); Dementia; DYSPHAGIA; depressive disorder; Atrial ss fibrillation; Alzheimer's disease; High Cholesterol; Hypertension; Polio; Schizophrenia; scoliosis; - PSHx: 19:00 Coronary artery bypass graft; Stented artery; ss Screenin:03 [facility] ED Fall Risk Assessment (Adult) History of falling in the last 3 months, mb9 including since admission Yes- fall prone (multiple falls) (3 pts) Confusion or Disorientation Yes (5 pts) Intoxicated or Sedated No (0 pts) Impaired Gait No (0 pts) Mobility Assist Device Used No (0 pt) Altered Elimination No (0 pt) Score/Fall Risk Level 3 or more points = High Risk Oriented to surroundings, Maintained a safe environment, Educated pt \T\ family on fall prevention, incl call for assistance when getting out of bed. Abuse screen: Denies threats or abuse. Nutritional screening: No deficits noted. Tuberculosis screening: No symptoms or risk factors identified. Assessment: 19:04 General: Appears in no apparent distress. comfortable, Behavior is calm, cooperative, mb9 appropriate for age. Pain: Complains of pain in abdomen Pain does not radiate. Pain currently is 8 out of 10 on a pain scale. Quality of pain is described as aching, sharp, shooting, Pain began suddenly, Is intermittent. Neuro: Mac Agitation-Sedation Scale (RASS): 0 - Alert and Calm Level of Consciousness is awake, alert, obeys commands, Oriented to person, place. Cardiovascular: Heart tones S1 S2 present Capillary refill < 3 seconds is brisk Patient's skin is warm and dry. Rhythm is regular. Respiratory: Airway is patent Respiratory effort is even, unlabored, Respiratory pattern is regular, symmetrical, Breath sounds are clear bilaterally. GI: Abdomen is flat, non-distended, Bowel sounds present X 4 quads. Abd is soft Abdomen is tender to palpation in right upper quadrant and right lower quadrant. : No signs and/or symptoms were reported regarding the genitourinary system. EENT: No signs and/or symptoms were reported regarding the EENT system. Derm: Skin is fragile, is thin, Skin is dry, Skin is pale, Skin temperature is cool. Musculoskeletal: Range of motion: limited in left arm. 20:25 Reassessment: No changes from previously documented assessment. Patient and/or family mb9 updated on plan of care and expected duration. Pain level reassessed. Patient is alert, oriented x 3, equal unlabored respirations, skin warm/dry/pink. GI: Stools are reported to be black and tarry. : Urine is cloudy. 21:25 Reassessment: No changes from previously documented assessment. Patient and/or family mb9 updated on plan of care and expected duration. Pain level reassessed. Patient is alert, oriented x 3, equal unlabored respirations, skin warm/dry/pink. 22:10 Reassessment: Family at bedside. mb9 23:01 Reassessment: No changes from previously documented assessment. Patient and/or family mb9 updated on plan of care and expected duration. Pain level reassessed. Patient is alert, oriented x 3, equal unlabored respirations, skin warm/dry/pink. 23:13 Reassessment: gave report to transferring nurse COREY Galan. mb9 23:52 Reassessment: Report given to [facility]. mb9 Vital Signs: 19:02 BP 131 / 57; Pulse 77; Resp 16; Temp 98.1(O); Pulse Ox 98% ; mb9 20:42 BP 133 / 53; Pulse 59; Resp 16; Pulse Ox 100% on R/A; mb9 21:30 BP 129 / 54; Pulse 62; Resp 16; Pulse Ox 100% ; mb9 22:32 BP 156 / 58; Pulse 63; Resp 18; Pulse Ox 98% ; mb9 23:27 BP 104 / 66; Pulse 69; Resp 14; Pulse Ox 99% on R/A; mb9 ED Course: 18:50 Patient arrived in ED. kb 18:51 Nicol [facility]-C [facility] kb 18:51 Nikolay Schaffer MD is Attending Physician. kb 19:00 Triage completed. ss 19:00 Arm band placed on right wrist. ss 19:03 Placed in gown. Bed in low position. Call light in reach. Side rails up X 1. Client mb9 placed on continuous cardiac and pulse oximetry monitoring. NIBP monitoring applied. hospital monitor on. 19:04 Dasia Ivan, RN is Primary Nurse. mb9 19:17 CBC with Diff Sent. mb9 19:17 CMP Sent. mb9 19:17 Lipase Sent. mb9 19:17 Inserted saline lock: 18 gauge in right antecubital area, using aseptic technique. mb9 Blood collected. 19:33 CT-ABD In Process Unspecified. EDMS 19:33 Head Brain Wo Cont CT In Process Unspecified. EDMS 20:41 Urine Microscopic Only Sent. mb9 21:12 SARS RAPID Sent. mb9 21:35 Initiated transfer to [facility], spoke with Pavithra. wm 21:58 Humerus Left XRAY In Process Unspecified. EDMS 21:58 Forearm Left XRAY In Process Unspecified. EDMS 22:36 Pt accepted for transfer to [facility] Rm:[id number] by Marie Graff \T\ 222 per Pavithra Peraza. wm 23:02 No provider procedures requiring assistance completed. mb9 23:02 Patient transferred, IV remains in place. mb9 Administered Medications: 22:03 Drug: Potassium Chloride 40 mEq Route: PO; mb9 22:41 Follow up: Response: No adverse reaction mb9 22:41 Drug: ProTONIX (pantoprazole) 40 mg Route: IVP; Site: right forearm; mb9 22:41 Follow up: Response: No adverse reaction mb9 Medication: 19:03 VIS not applicable for this client. mb9 Outcome: 22:27 ER care complete, transfer ordered by MD. keller 23:13 Transferred by ground EMS to [facility], Transfer form completed. mb9 23:13 Condition: stable 23:13 Instructed on the need for transfer. 23:52 Patient left the ED. mb9 Signatures: Dispatcher [employer] EDNicol Troncoso, APPRENTICESHIP TRAINING REPRESENTATIVE-C APPRENTICESHIP TRAINING REPRESENTATIVE-Linda Haque, Yary Heath RN, Mary Beth RN RN mb9
--- NOTE | 2022-04-21 22:28 | EDPHYS ---
Physician Documentation [facility] Name: Silvestre Damico Age: 89 yrs Sex: Female : 1930 Arrival Date: 04/21/2022 Time: 18:50 Bed 3 Private MD: ED Physician Nikolay Schaffer HPI: 04/21 21:31 This 89 yrs old Female presents to ER via EMS with complaints of Black/Tarry Stools. kb 21:31 The patient presents to the emergency department with rectal bleeding, black stool. kb Onset: The symptoms/episode began/occurred today. Abdominal pain: described as achy, located in the abdomen diffusely, that does not radiate. Modifying factors: The symptoms are alleviated by nothing, the symptoms are aggravated by nothing. Associated signs and symptoms: The patient has no apparent associated signs or symptoms. Severity of symptoms: At their worst the symptoms were moderate in the emergency department the symptoms are unchanged. The patient has not experienced similar symptoms in the past. The patient has not recently seen a physician. EMS reports custodial called them out for black stools that started today. Pt complaining of abd pain as well. Historical: - Allergies: 19:00 Black Pepper; ss 19:00 Codeine; ss 19:00 Demerol; ss 19:00 FLU VACCINE; ss 19:00 Iodine; ss 19:00 meperidine; ss 19:00 PENICILLINS; ss 19:00 tramadol; ss - PMHx: 19:00 chronic kidney disease (stage 3); Dementia; DYSPHAGIA; depressive disorder; Atrial ss fibrillation; Alzheimer's disease; High Cholesterol; Hypertension; Polio; Schizophrenia; scoliosis; - PSHx: 19:00 Coronary artery bypass graft; Stented artery; ss ROS: 21:30 Constitutional: Negative for fever, chills, and weight loss. kb 21:30 Abdomen/GI: Positive for abdominal pain, black/tarry stool. 21:30 All other systems are negative. Exam: 21:30 Constitutional: This is a well developed, well nourished patient who is awake, alert, kb and in no acute distress. Head/Face: Normocephalic, atraumatic. ENT: Moist Mucous membranes Cardiovascular: Regular rate and rhythm with a normal S1 and S2. No gallops, murmurs, or rubs. No pulse deficits. Respiratory: Respirations even and unlabored. No increased work of breathing. Talking in full sentences Skin: Warm, dry with normal turgor. Normal color. MS/ Extremity: Pulses equal, no cyanosis. Neurovascular intact. Full, normal range of motion. Neuro: Awake and alert, GCS 15, oriented to person, place, time, and situation. Moves all extremities. Normal gait. Psych: Awake, alert, with orientation to person, place and time. Behavior, mood, and affect are within normal limits. 21:30 Abdomen/GI: Inspection: abdomen appears normal, Bowel sounds: normal, Palpation: soft, in all quadrants, moderate abdominal tenderness, in all quadrants. Vital Signs: 19:02 BP 131 / 57; Pulse 77; Resp 16; Temp 98.1(O); Pulse Ox 98% ; mb9 20:42 BP 133 / 53; Pulse 59; Resp 16; Pulse Ox 100% on R/A; mb9 21:30 BP 129 / 54; Pulse 62; Resp 16; Pulse Ox 100% ; mb9 22:32 BP 156 / 58; Pulse 63; Resp 18; Pulse Ox 98% ; mb9 23:27 BP 104 / 66; Pulse 69; Resp 14; Pulse Ox 99% on R/A; mb9 MDM: 18:51 Patient medically screened. kb 21:29 Differential diagnosis: gi bleed, nonspecific abd pain. Data reviewed: vital signs, kb nurses notes. Consideration of Admission/Observation pt will be transferred due to lack of GI services at this facility. Historians other than the Patient: EMS: [facility]. Counseling: I had a detailed discussion with the patient and/or guardian regarding: the historical points, exam findings, and any diagnostic results supporting the discharge/admit diagnosis, lab results, radiology results, the need to transfer to another facility, [facility] does not immediately have the required specialist. 22:27 Management of patient was discussed with the following: Hospitalist at [facility] arianna JD [facility]. Accepts pt for transfer. 04/21 18:51 Order name: CBC with Diff; Complete Time: 19:26 kb 04/21 18:51 Order name: CMP; Complete Time: 19:50 kb 04/21 18:51 Order name: Lipase; Complete Time: 19:50 kb 04/21 18:51 Order name: Urine Microscopic Only; Complete Time: 20:58 kb 04/21 20:35 Order name: Urine Dipstick-Ancillary; Complete Time: 20:58 EDMS 04/21 21:04 Order name: SARS RAPID; Complete Time: 21:29 kb 04/21 18:51 Order name: IV Saline Lock; Complete Time: 19:17 kb 04/21 19:19 Order name: Head Brain Wo Cont CT; Complete Time: 19:40 kb 04/21 19:23 Order name: CT-ABD ; Complete Time: 19:50 EDMS 04/21 21:12 Order name: Humerus Left XRAY; Complete Time: 22:14 kb 04/21 21:12 Order name: Forearm Left XRAY; Complete Time: 22:14 kb 04/21 18:51 Order name: Labs collected and sent; Complete Time: 19:17 kb 04/21 18:51 Order name: Urine Dipstick-Ancillary (obtain specimen); Complete Time: 20:41 kb 04/21 19:19 Order name: Straight Cath; Complete Time: 20:41 kb Administered Medications: 22:03 Drug: Potassium Chloride 40 mEq Route: PO; mb9 22:41 Follow up: Response: No adverse reaction mb9 22:41 Drug: ProTONIX (pantoprazole) 40 mg Route: IVP; Site: right forearm; mb9 22:41 Follow up: Response: No adverse reaction mb9 Disposition Summary: 04/21/22 22:27 Transfer Ordered Transfer Location: [facility] kb Reason: Higher level of care kb Condition: Stable kb Problem: new kb Symptoms: are unchanged kb Accepting Physician: Dr Salazar(04/21/22 23:52) mb9 Diagnosis - GI Bleed/ Gastrointestinal hemorrhage, unspecified kb Forms: - Medication Reconciliation Form kb - SBAR form kb Signatures: Dispatcher [employer] EDNicol Troncoso, DELIMER-C DELIMER-Linda Haque RN RN Dasia Cook RN RN mb9 Corrections: (The following items were deleted from the chart) 19:07 18:51 Urine Test ordered. arianna mb9 19:23 18:55 Abdomen Pelvis W Con+CT.RAD.BRZ ordered. EDMS EDMS 22:41 22:27 Dr arianna keller 23:52 22:41 Dr Marie keller mb9
[2022-04-21] MEDS ORDERED: PANTOPRAZOLE 40 MG INJ ONE (22:30)
[2022-04-22 01:08] VITALS: TEMP 98.1
[2022-04-22 01:18] VITALS: BP 104/66; O2SAT 99
== END 2022-04-21 23:52 | disposition short-term general hospital (02) ==
LOC: ER 18:21
DX: K92.2 Gastrointestinal hemorrhage, unspecified (principal); I12.9 Hypertensive chronic kidney disease with stage 1 through stage 4 chronic kidney disease, or unspecified chronic kidney disease; N18.30 Chronic kidney disease, stage 3 unspecified; G30.9 Alzheimer's disease, unspecified; F02.80 Dementia in other diseases classified elsewhere, unspecified severity, without behavioral disturbance, psychotic disturbance, mood disturbance, and anxiety; Z95.1 Presence of aortocoronary bypass graft; Z20.822 Contact with and (suspected) exposure to COVID-19
CPT/HCPCS: 85025; 36415; 83690; 80053; 70450; 73090; 73060; 74176; 96374; 99285; 87811; C9113; 81003; 81015